=== PATIENT | male | born 1945 | race Caucasian/White ===

== ENCOUNTER 2018-06-25 11:30 | Outpatient (RCR) | payer OTHER, SELFPAY ==
--- NOTE | 2018-03-27 14:08 | HP.PTEVAL_ITS ---
Patient's Visit Information ANDREEA AGUILERA is a 72 year old M referred to Physical Therapy by DASH ANTHONY with a diagnosis of R knee pain s/p TKA 03/20. Date of Evaluation: 03/27/18 Physical Therapist: Braxton Juarez DPT, OC - Visit Plan Frequency: 3x /Week Duration: 4-6 Weeks Plan: 3x/week for 3-6 weeks for: 1. patella mobs and sTM including incision when appropriately healed. 2. A/PROM R knee adn leg. 3. strength R LE. 4. Gait training and progression from walker. 5. General return to function. 6. ice as needed. - Subjective Subjective: One weeka go R TKA, Dr. Anthony. Had years of bone on bone pain. It is feeling pretty painful since in the anterior knee at 01/18. Worse with sitting too long with leg down. Climbing in to bed hurts bad.(lifting leg). Using wh walker to get around. Used cane prior to surgery outside of house. Has steps up to bedroom with rail but sleeping downstairs. Sleeping is OK, not often interrupted with pain. Bathroom is I. Dresses self except for socks. HEP daily basics. 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 Enjoys walking and mowing yard. Likes walking on farm, will not do that alone. Watches TV alot. Walking is main exercises. Enjoys being social when feeling good. - Pain R anterior knee. Pain Intensity (Out of 10): 8 Pain Intensity Range: 6, 10 - Objective Avoids R knee flexiona t swing, walks with wh walker mod I. 40 feet. Trasnfers I with UE, R leg out in front. Needs assist with R LE lift to transfer inand out of bed, VC for lifting with other leg. Slow movement and needs VC to stand with R knee in near full ext, stands at walker I, without walker I. needs VC to heel strike and toe off on R adn to keep walker moving. Redness present middle of incision minimally today, Covering removed at patients request and incision is dry and stero strips in place. Small proximal overlapping of skin but otherwise looks good. Patella on R is moderate deficits of motion in all directions. Swelling is moderate as expected this date. Patient has book and is able to show all exercises today but cannot lift leg or LAQ and was not doing QS. Hard for him to move R knee without using UE. Hip strength R flexion 3 abd 3, and ext 3-. Knee flexion 3+ and ext 3-, ankle strength 4+/5. HS adn gastroc max tight B with -45 90/90 test and -5 degrees active DF R, to near neutral passsivley. - Goals Goal 1:: 0-110 AROM to improve function Goal Time Frame: 4-6 Weeks Goal 2:: Walk without AD safe and I with good gait pattern into andd out of PT Goal Time Frame: 4-6 Weeks Goal 3:: Up and down steps reciprocally with one rail Goal Time Frame: 4-6 Weeks Goal 4:: Sleep without waking due to pain. Goal Time Frame: 4-6 Weeks Goal 5:: Ready to resume some outdoor farm walking Goal Time Frame: 4-6 Weeks - Rehabilitation Potential Physical Therapy Diagnosis: S/P R TKA,s tiffness and poor mobility. Rehabilitation Potential: Fair - Anticipated Interventions Patient/Client Instruction: Educate patient on: Condition, Plan of Care For the Purpose of:: To decrease pain, To improve muscle performance and motor function Therapeutic Exercise to Include: Strength training, Flexibilty training, Gait and locomotor training, Passive ROM, Active ROM For the Purpose of:: To decrease pain, To increase ROM, To improve nutrient delivery to tissue, To improve muscle performance and motor function, To increase tolerance to activity/condition/position, To improve ability of physical actions for home/community/work/leisure Manual Therapy Techniques to Include: Scar massage, Soft tissue mobilization For the Purpose of:: To decrease pain, To increase ROM, To improve nutrient delivery to tissue Cryotherapy (ice pack, ice massage): Yes For the Purpose of:: To decrease pain, To decrease swelling/inflammation Thank you for the opportunity to evaluate your patient. For Medicare and Medicare HMO plans, please review the plan of care and approve it. It will need to be FAXED BACK to us at [phone] for Medicare purposes. Please let me know if there are questions or concerns regarding this plan of care. Physician Signature: Date:
--- NOTE | 2018-04-17 11:53 | HP.PTREVAL_ITS ---
DASH ANTHONY, It has been my pleasure to treat ANDREEA AGUILERA over the last 10 visits for R knee pain s/p TKA 03/20/18. Please see the progress note below for an update on the physical therapy plan of care! Subjective: Getting around good. Pain is intermittent at -07/21. HEP at home going well. Sleeping well. Only activity avoiding is walking as driveway is gravel. Knee doesn't keep him from cooking or housework. To doctor on the 04/29. Using cane outside and nothing in the house. Steps going OK but doesn't go up them yet to sleep as bathroom is downstairs and doesn't feel like climbing them at night. Objective/Function: -3 to 106 AROM R knee. Walks well adn steps with one rail and slightly weak on R. steristrips in place but dry and healed well. Cane used for confidence. Plan Plan: Continue 3x/week for x 3-4 for. rollout upper leg muscles and stertch and work on ROM flexion and ext. also teach LE strength at counter for winter. Work on steps. Goals Goal 1:: 0-110 AROM to improve function Goal Time Frame: 4-6 Weeks Goal Progress: Progressing Goal 2:: Walk without AD safe and I with good gait pattern into andd out of PT Goal Time Frame: 4-6 Weeks Goal Progress: Goal Met Goal 3:: Up and down steps reciprocally with one rail Goal Time Frame: 4-6 Weeks Goal Progress: Progressing Goal 4:: Sleep without waking due to pain. Goal Time Frame: 4-6 Weeks Goal Progress: Goal Met Goal 5:: Ready to resume some outdoor farm walking Goal Time Frame: 4-6 Weeks Goal Progress: Progressing Anticipated Interventions Patient/Client Instruction: Educate patient on: Condition, Plan of Care For the Purpose of:: To decrease pain, To improve muscle performance and motor function Therapeutic Exercise to Include: Strength training, Flexibilty training, Gait and locomotor training, Passive ROM, Active ROM For the Purpose of:: To decrease pain, To increase ROM, To improve nutrient delivery to tissue, To improve muscle performance and motor function, To increas e tolerance to activity/condition/position, To improve ability of physical actions for home/community/work/leisure Manual Therapy Techniques to Include: Scar massage, Soft tissue mobilization For the Purpose of:: To decrease pain, To increase ROM, To improve nutrient delivery to tissue Cryotherapy (ice pack, ice massage): Yes For the Purpose of:: To decrease pain, To decrease swelling/inflammation Please do not hesitate to contact me at [phone] by phone or if you have questions or concerns regarding this new plan of care! Sincerely, Braxton Juarez, DPT, OC
--- NOTE | 2018-05-10 13:51 | HP.PTREVAL ---
DASH ANTHONY, It has been my pleasure to treat ANDREEA AGUILERA over the last 19 visits for R knee pain s/p TKA 03/20/18. Please see the progress note below for an update on the physical therapy plan of care! Subjective: Better , Getting around well, no cane unless outside. Sore R knee.08/18 , some days no pain. Ready to be done and may join as a member. Objective/Function: -1 to 111 aROM and to 117 PROM flexion, Patella movement improved. Steps reciprocal without rail but smoother with rail. walks well and even jogs a few steps today. Pt doing well and ready to be done but lacks the knowledge to continue a gym based program which he is willing to do for the winter(neglected to mention this prior). Recommend 3 visits to teach gym based ex for I for LE strength and posture and calorie burn. Plan Plan: 3-4 visits of teaching gym based ex for LE adn UE adn postural strength adn bike/TM and progress to I after 4 visits as member(pt willing to join) Goals Goal 1:: 0-110 AROM to improve function Goal Time Frame: 4-6 Weeks Goal Progress: Goal Met Goal 2:: Walk without AD safe and I with good gait pattern into andd out of PT Goal Time Frame: 4-6 Weeks Goal Progress: Goal Met Goal 3:: Up and down steps reciprocally with one rail Goal Time Frame: 4-6 Weeks Goal Progress: Goal Met Goal 4:: Sleep without waking due to pain. Goal Time Frame: 4-6 Weeks Goal Progress: Goal Met Goal 5:: Ready to resume some outdoor farm walking Goal Time Frame: 4-6 Weeks Goal Progress: Goal Met Goal 6:: I approp gym based strength to keep healthy for winter Goal Time Frame: 2 Weeks Goal Progress: NEW GOAL Anticipated Interventions Patient/Client Instruction: Educate patient on: Condition, Plan of Care For the Purpose of:: To decrease pain, To improve muscle performance and motor function Therapeutic Exercise to Include: Strength training, Flexibilty training, Gait and locomotor training, Passive ROM, Active ROM For the Purpose of:: To decrease pain, To increase ROM, To improve nutrient delivery to tissue, To improve muscle performance and motor function, To increase tolerance to activity/condition/position, To improve ability of physical actions for home/community/work/leisure Manual Therapy Techniques to Include: Scar massage, Soft tissue mobilization For the Purpose of:: To decrease pain, To increase ROM, To improve nutrient delivery to tissue Cryotherapy (ice pack, ice massage): Yes For the Purpose of:: To decrease pain, To decrease swelling/inflammation Please do not hesitate to contact me at [phone] by phone or if you have questions or concerns regarding this new plan of care! Sincerely, Braxton Juarez, STUARTT, OC
--- NOTE | 2018-06-25 12:42 | HP.PTDCSUM ---
HP - PT D/C Summary It has been my pleasure to treat ANDREEA AGUILERA under orders from MARY ARNOLD, for the diagnosis of R knee pain s/p TKA 03/20/18 for a total of 23 visit(s). Discharge Date: 06/25/18 Please see the following information for a summary of their discharge status. - Subjective Subjective: Did well out in gym. Pain is not an issue with knee. Wants to do ex I 3x/week. Sleep is good. Will see doctor in March. - Pain R anterior knee. Pain Intensity (Out of 10): 0 bilat LB Pain Intensity (Out of 10): 0 - Overall Improvement % Improvement: 90 - Objective Objective/Function: 0-115 AROM, walks well adn without AD. Walks well, flat L foot but safe adn I on frim flat surface. steps ascending reciprocal without rail but needs it to descend for balance. - Goals Goal 1:: 0-110 AROM to improve function Goal Progress: Goal Met Goal 2:: Walk without AD safe and I with good gait pattern into andd out of PT Goal Progress: Goal Met Goal 3:: Up and down steps reciprocally with one rail Goal Progress: Goal Met Goal 4:: Sleep without waking due to pain. Goal Progress: Goal Met Goal 5:: Ready to resume some outdoor farm walking Goal Progress: Goal Met Goal 6:: I approp gym based strength to keep healthy for winter Goal Progress: Goal Met - Plan Plan: D/C - D/C Information Discharge Comments: Pt doing very wella nd will continue in gym as member I 3x/week. F/U with surgeon in March. If there are questions or concerns regarding this patient's physical therapy, please feel free to call me at [phone]. Thank you for the referral of this patient. Sincerely, Braxton Juarez, DPT, OCS, CSCS
== END 2018-06-25 19:00 | disposition home or self-care (01) ==
LOC: PT 11:30
DX: M25.561 Pain in right knee (principal)
CPT/HCPCS: 97110; 97116; 97140; 97162; 97530; G8978; G8979

== ENCOUNTER 2023-11-03 17:29 | Emergency (ER) | payer OTHER, SELFPAY ==
[2023-11-03 17:30] VITALS: BP 124/61; PULSE 81; RESP 26; TEMP 36; O2SAT 98
[2023-11-03 18:10] VITALS: BMI 30.7
[2023-11-03] MEDS: 0.9% Normal Saline (1000mL) 1,000 ML 1000 ML IV (18:20)
[2023-11-03] MEDS: Ondansetron 4 MG/2 ML Vial IV (18:22)
[2023-11-03] MEDS: Morphine 4 MG/ML Syringe IV (18:22)
[2023-11-03 18:23] LABS: Absolute Lymphocyte Count 0.82 X10^3/uL (0.83-4.51); Absolute Neutrophil Count 5.7 X10^3/uL (2.0-7.7); Basophil# 0.02 X10^3/uL; Basophil% 0.3 % (0-1); Eosinophil# 0.07 X10^3/uL; Hematocrit 44.2 % (40-54); Hemoglobin 15.2 g/dL (13.0-16.5); Lymphocyte # 0.82 X10^3/ul (0.83-4.51); Lymphocyte % 11.8 % (19-41); Mean Corp Hgb Conc 34.4 g/dL (32-36); Mean Corpuscular Hgb 29.5 pg (27.0-32.0); Mean Corpuscular Volume 85.8 fL (80-94); Monocyte# 0.38 X10^3/uL; Monocyte% 5.5 % (0-10); NRBC Flagged by Analyzer 0 % (0-5); Neutrophil # 5.66 X10^3/uL (2.7-7.7); Neutrophil % 81.1 % (47-70); Platelet Count 236 K/mm3 (150-450); RBC Distribution Width CV 13.2 % (11.6-14.6); RBC Distribution Width SD 41.6 fl (35.1-43.9); Red Blood Count 5.15 M/mm3 (4.6-6.2)
[2023-11-03 18:32] VITALS: BP 140/80; PULSE 71; RESP 20; TEMP 36.5; O2SAT 98
[2023-11-03 18:41] LABS: AST(SGOT) 208 U/L (15-37); Alanine Aminotransfer ALT/SGPT 172 U/L (16-61); Alkaline Phosphatase 130 U/L (45-117); Anion Gap 12 (5-15); BUN 22 mg/dL (7-18); BUN/Creat Ratio 17.1 RATIO (10-20); Bilirubin, Direct 0.72 mg/dL (0.00-0.30); Calcium,Total 9.7 mg/dL (8.5-10.1); Chloride 103 mmol/L (98-107); Creatinine, Serum 1.29 mg/dL (0.70-1.30); EST Glomerular Filtration Rate 57 mL/min (>60); Est Glom Filt Rate - Afr Amer 69 mL/min (>60); Globulin 3.7 g/dL (2.2-4.2); Glucose 203 mg/dL (74-106); Potassium 3.8 mmol/L (3.5-5.1); Protein, Total 7.7 g/dL (6.4-8.2); Sodium Level 137 mmol/L (136-145)
[2023-11-03 18:47] LABS: Bacteria 0 SEEN /hpf (None Seen); Mucous, Urine 0 SEEN /hpf (<or=2+); Red Blood Cells-Urine 0 SEEN /hpf (0-5); Squamous Epithelial Cells - UA 0 SEEN /hpf (0-5)
[2023-11-03 18:48] LABS: Color, Urine Yellow (Yellow); Glucose, Dipstick 50 mg/dl (Normal); Leukocyte Esterase-Dipstick 25 /ul (Negative); Nitrite-Dipstick Negative (Negative); Occult Blood-Urine Negative /ul (Negative); Protein-Dipstick 30 mg/dl (Negative); Specific Gravity, Urine 1.015 (1.002-1.030); Urine Bilirubin Dipstick Negative (Negative); Urine Clarity Clear (Clear); Urine Urobilinogen 4 mg/dl (Normal)
[2023-11-03 18:49] LABS: Ketone-Dipstick 150 mg/dl (Negative)
[2023-11-03 18:54] LABS: White Blood Cells 0-5 SEEN /hpf (0-5)
[2023-11-03 19:00] VITALS: BP 131/79; PULSE 76; RESP 18; O2SAT 92
--- NOTE | 2023-11-03 19:40 | CT_ITS ---
EXAM: CT ABDOMEN AND PELVIS WITH INTRAVENOUS CONTRAST CLINICAL INDICATION: suprapubic pain TECHNIQUE: Helically acquired images were obtained of the abdomen and pelvis with intravenous contrast. This CT exam was performed using one or more of the following dose reduction techniques: automated exposure control, adjustment of the mA and/or kV according to patient size, and/or use of iterative reconstruction technique. CONTRAST: IV 75mL Isovue-370 COMPARISON: No relevant prior studies available. FINDINGS: LOWER THORAX: There are moderate coronary artery calcifications present. There is scarring within the lung bases. No cardiomegaly. No significant pericardial effusion. ABDOMEN: LIVER: Unremarkable. Homogeneous. No focal mass. GALLBLADDER AND BILE DUCTS: There are several gallstones present but no evidence of inflammation. No gallbladder distention or wall edema. No intra- or extrahepatic biliary ductal dilation. PANCREAS: Unremarkable. No focal cystic or solid mass. SPLEEN: Unremarkable. Normal size without focal cystic or solid mass. ADRENALS: Unremarkable. No nodules. KIDNEYS AND URETERS: There are low-density masses on right kidney compatible cysts. No follow-up imaging is necessary. The left kidney is not visualized and may be surgically absent. STOMACH AND BOWEL: Unremarkable. No stomach or bowel distention. No focal inflammatory change. PELVIS: APPENDIX: No evidence of acute appendicitis. BLADDER: Unremarkable. REPRODUCTIVE: Unremarkable as visualized. No mass. ABDOMEN and PELVIS: INTRAPERITONEAL SPACE: Unremarkable. No ascites or other fluid collection. No free air. BONES/JOINTS: Unremarkable. No suspicious lytic or blastic abnormality. SOFT TISSUES: Unremarkable. No discrete abdominal or pelvic wall hernia. VASCULATURE: See above. LYMPH NODES: Unremarkable. No enlarged lymph nodes. CT/Abdomen/Pelvis W IV Cont ONLY IMPRESSION: 1. Cholelithiasis with no evidence of cholecystitis. 2. Status post left nephrectomy. No acute abnormalities are identified. Electronically Signed: Randell Cartagena MD at 20:07 EDT ,
[2023-11-03 20:00] VITALS: BP 135/87; PULSE 96; RESP 19; O2SAT 91
[2023-11-03 20:48] VITALS: BP 168/92; PULSE 90; RESP 18; TEMP 36.8; O2SAT 93
--- NOTE | 2023-11-03 21:44 | EDS_ITS ---
HPI History of Present Illness Chief Complaint: Complaint Informant: patient, spouse/S.O. and family Narrative Narrative: 78-year-old male presenting to the emergency room with suprapubic pain. Patient states for the past several hours she has had a severe pain which she states feels like a bladder contraction. Patient states that last year he had Botox to his bladder to help with his nighttime urination. He sees the [facility] [place]. He takes tamsulosin. He denies any hematuria. No dysuria or fevers. Patient denies any change in bowel habits. No history of diverticulitis. Pain is nonradiating. 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 Home Medications ?Medication ?Instructions ?Recorded ?Last Taken ?Type tamsulosin 0.4 mg capsule 0.4 mg PO DAILY ##30 03/11/15 Unknown Rx amlodipine 10 mg tablet 10 mg PO DAILY 11/03/23 Unknown History amoxicillin 500 mg capsule 500 mg PO TID 11/03/23 Unknown History ascorbic acid (vitamin C) 500 mg mg PO 11/03/23 Unknown History capsule atorvastatin 40 mg tablet 40 mg PO DAILY 11/03/23 Unknown History cholecalciferol (vitamin D3) 25 25 mcg PO DAILY 11/03/23 Unknown History mcg (1,000 unit) capsule fluticasone propionate 50 1 inh inhalation BID 11/03/23 Unknown History mcg/actuation blister powder for inhalation levothyroxine 75 mcg capsule 75 mcg PO DAILY 11/03/23 Unknown History lisinopril 2.5 mg tablet 2.5 mg PO DAILY 11/03/23 Unknown History menthol 10 % topical cream applic topical 11/03/23 Unknown History (Biofreeze (menthol)) trospium 20 mg tablet 20 mg PO DAILY 11/03/23 Unknown History Allergy/AdvReac Type Severity Reaction Status Date / Time No Known Allergies Allergy Verified 11/03/23 17:32 Social History Smoking Status: Never smoker ROS ROS ED Constitutional Constitutional ED: Denies chills, fever(s) or weight loss Eyes Eyes: Denies change in vision or diplopia ENT ENT ED: Denies ear pain, rhinorrhea or sore throat Cardiovascular Cardiovascular: Denies chest pain, orthopnea, palpitations or racing heartbeat Respiratory/Chest Respiratory/Chest: Denies cough, dyspnea or orthopnea Gastrointestinal Gastrointestinal: Reports abdominal pain; Denies diarrhea, nausea or vomiting Genitourinary Genitourinary ED: Denies dysuria, hematuria or urinary frequency Musculoskeletal Musculoskeletal: Denies arthralgias or myalgias Integumentary Denies abscess or rash Neurologic Neurologic: Denies headache(s) or weakness Psychiatric Psychiatric: Denies anxiety, depression, suicidal ideation or suicidal thoughts Endocrine Endocrinology: Denies polydipsia, polyphagia or polyuria Allergic/Immunologic Allergic/Immunologic ED: Denies mouth swelling, tongue swelling or urticaria EXAM Physical Exam Const Vital Signs: 11/03/23 17:30 11/03/23 18:32 11/03/23 18:32 Temperature 96.8 F L 97.7 F L 97.7 F L Temperature Source Temporal Axillary Axillary Pulse Rate 81 71 71 Respiratory Rate 26 H 20 H 20 H Blood Pressure 124/61 H 140/80 H 140/80 H Blood Pressure Mean 82 100 100 Pulse Ox 98 98 98 Oxygen Delivery Method Room Air Room Air Room Air 11/03/23 19:00 11/03/23 20:00 11/03/23 20:48 Temperature 98.2 F Temperature Source Pulse Rate 76 96 90 Respiratory Rate 18 19 H 18 Blood Pressure 131/79 H 135/87 H 168/92 H Blood Pressure Mean 96 103 117 Pulse Ox 92 91 93 Oxygen Delivery Method Room Air Positive well nourished and well developed General Appearance ED: well developed HEENT Reports normocephalic, head/scalp atraumatic and moist mucous membranes Eyes PERRL and EOMs intact bilaterally Neck no lymphadenopathy, supple and no JVD Resp normal respiratory effort and clear to auscultation bilaterally Cardio regular rate, regular rhythm and no murmurs GI normal to inspection, nondistended, normoactive bowel sounds and non-tender Palpation: soft Back/Spine no CVA tenderness and normal ROM Extremity normal to inspection General Extremety ED: Negative for edema General Extremity: Negative for edema Neuro oriented x3 and CN's II-XII intact bilaterally Sensorium / Orientation: alert Motor Exam: strength 5/5 throughout Psych mental status grossly normal Mood & Affect: Negative for depressed or tearful Skin no rashes or lesions noted and no wounds MDM MDM MDM Narrative Medical decision making narrative: Differential diagnosis is very broad and includes but not limited to ureterolithiasis urinary retention UTI hemorrhagic cystitis diverticulitis colitis bladder spasms prostatitis Bladder scan did not show any distended bladder nor did physical exam. White count 7 hemoglobin 15.2. Creatinine 1.29 slight elevation of his liver enzymes and total bilirubin and direct bilirubin. He states that they do monitor his liver enzymes due to his immunotherapy. Urinalysis does not show any infection. CT of the abdomen pelvis was obtained this is consistent with cholelithiasis. However biliary disease would not explain his suprapubic pain. He has no current right upper quadrant or epigastric pain. No vomiting. I do not see any ureterolithiasis. He is status post left nephrectomy. Patient received morphine and Zofran as well as IV fluids. He has been able to urinate without any difficulty on his own. At this point I am not seeing an obvious cause for the patient's pain. He will be [facility] worsening or concerns History & Record Review Discussion w/independent historian: Patient and Family Lab Data Attestation: I reviewed the patient's lab results. Labs: Laboratory Results - last 24 hr 11/03/23 11/03/23 18:15 18:42 WBC 7.0 RBC 5.15 Hgb 15.2 Hct 44.2 MCV 85.8 MCH 29.5 MCHC 34.4 RDW Std Deviation 41.6 RDW Coeff of Hector 13.2 Plt Count 236 MPV 9.0 Immature Gran % (Auto) 0.300 Neut % (Auto) 81.1 H Lymph % (Auto) 11.8 L Tyler % (Auto) 5.5 Eos % (Auto) 1.0 Baso % (Auto) 0.3 Absolute Neuts (auto) 5.7 Absolute Lymphs (auto) 0.82 L Nucleated RBC % 0 Sodium 137 Potassium 3.8 Chloride 103 Carbon Dioxide 22.0 Anion Gap 12 BUN 22 H Creatinine 1.29 Estim Creat Clear Calc 58.50 Est GFR (MDRD) Af Amer 69 Est GFR (MDRD) Non-Af 57 L BUN/Creatinine Ratio 17.1 Glucose 203 H Calcium 9.7 Total Bilirubin 1.40 H Direct Bilirubin 0.72 H AST 208 H ALT 172 H Alkaline Phosphatase 130 H Total Protein 7.7 Albumin 4.0 Globulin 3.7 Urine Color Yellow Urine Clarity Clear Urine pH 8.0 Ur Specific [place] 1.015 Urine Protein 30 H Urine Glucose (UA) 50 H Urine Ketones 150 A* Urine Occult Blood Negative Urine Nitrite Negative Urine Bilirubin Negative Urine Urobilinogen 4 H Ur Leukocyte Esterase 25 H Urine RBC 0 SEEN Urine WBC 0-5 SEEN Ur Squamous Epith Cells 0 SEEN Urine Bacteria 0 SEEN Urine Mucus 0 SEEN Radiography Diagnostic Testing: Clinical Impression(s) from Imaging Studies Abdomen/Pelvis CT 11/03/23 19:40 IMPRESSION: 1. Cholelithiasis with no evidence of cholecystitis. 2. Status post left nephrectomy. No acute abnormalities are identified. Electronically Signed: Randell Cartagena MD at 20:07 EDT , Discharge Plan Triage Chief Complaint: Complaint ED Provider: Channing Caro Dx/Rx/DC Orders Clinical Impression: Abdominal pain, suprapubic Instructions: ED Abdominal Pain Unkn Cause Male... Prescriptions: No Action tamsulosin 0.4 MG capsule 0.4 mg PO DAILY Qty: 30 0RF lisinopril 2.5 mg tablet 2.5 mg PO DAILY amlodipine 10 mg tablet 10 mg PO DAILY levothyroxine 75 mcg capsule 75 mcg PO DAILY atorvastatin 40 mg tablet 40 mg PO DAILY ascorbic acid (vitamin C) 500 mg capsule PO cholecalciferol (vitamin D3) 25 mcg (1,000 unit) capsule 25 mcg PO DAILY trospium 20 mg tablet 20 mg PO DAILY Rx Instructions: administer on an empty stomach amoxicillin 500 mg capsule 500 mg PO TID Biofreeze (menthol) 10 % cream topical fluticasone propionate 50 mcg/actuation blister with device 1 inh inhalation BID [facility] [Primary Care Provider] - As Needed Print Language: Finnish Disposition Disposition: Home, Self Care Discharge Date/Time: 11/03/23 20:53
== END 2023-11-03 20:53 | disposition home or self-care (01) ==
PROVIDERS: Emergency Provider Emergency Medicine; Visit Provider Emergency Medicine
DX: R10.9 Unspecified abdominal pain (principal); I10 Essential (primary) hypertension; Z79.899 Other long term (current) drug therapy
CPT/HCPCS: 74177; 80048; 80076; 81001; 85025; 96361; 96374; 96375; 99284; J7030; P9612; Q9967; A4216; J2405

== ENCOUNTER 2025-02-04 08:54 | Emergency (ER) | payer OTHER, SELFPAY ==
[2025-02-04 08:55] VITALS: BP 154/95; PULSE 94; RESP 18; TEMP 36.2; O2SAT 96; BMI 30.1
--- NOTE | 2025-02-04 09:17 | EX.ED.DYSGE1 ---
HPI History of Present Illness Chief Complaint: Nosebleed Informant: patient Onset/Context/Timing Onset: Today and Hours (7) Context: Sudden Onset Timing: Intermittent Quality: Dark blood Location: Right nares Worsened by: Activity Relieved by: Nothing Narrative Narrative: Patient presents with epistaxis that began early this morning. Patient states that he woke up approximate 2 AM and noted some blood from his right nares. Patient states this stopped and he was able to go back to bed. Patient states he woke up this morning and started bleeding again. Patient states it seems to be worse when he gets up and moves around. Patient states it is mainly coming from the right nares. Patient describes it as dark. Patient admits to a recent cough. Patient also admits to mild sore throat. Patient denies any trauma or injury. Patient states that he had a recent dental extraction. Patient states that he stopped his anticoagulant prior to the dental extraction. Patient states he restarted it again last evening. Patient states he normally takes it in the evening with food. [facility] Medical History (Updated 02/04/25 @ 13:[address] Braxton Mendez, ) Hypothyroidism Pulmonary emboli HTN (hypertension) Kidney cancer, primary, with metastasis from kidney to other site Home Medications ?Medication ?Instructions ?Recorded ?Last Taken ?Type tamsulosin 0.4 mg capsule 0.4 mg PO DAILY ##30 03/11/15 Unknown Rx amlodipine 10 mg tablet 10 mg PO DAILY 11/03/23 Unknown History amoxicillin 500 mg capsule 500 mg PO TID 11/03/23 Unknown History ascorbic acid (vitamin C) 500 mg mg PO 11/03/23 Unknown History capsule atorvastatin 40 mg tablet 40 mg PO DAILY 11/03/23 Unknown History cholecalciferol (vitamin D3) 25 25 mcg PO DAILY 11/03/23 Unknown History mcg (1,000 unit) capsule fluticasone propionate 50 1 inh inhalation BID 11/03/23 Unknown History mcg/actuation blister powder for inhalation levothyroxine 75 mcg capsule 75 mcg PO DAILY 11/03/23 Unknown History lisinopril 2.5 mg tablet 2.5 mg PO DAILY 11/03/23 Unknown History menthol 10 % topical cream applic topical 11/03/23 Unknown History (Biofreeze (menthol)) trospium 20 mg tablet 20 mg PO DAILY 11/03/23 Unknown History Allergy/AdvReac Type Severity Reaction Status Date / Time latex Allergy Rash Verified 02/04/25 10:32 Surgical History (Updated 02/04/25 @ 09:[address] Braxton Mendez DO) History of nephrectomy Hx of cholecystectomy Social History Smoking Status: Never smoker ROS ROS ED Constitutional Constitutional ED: Denies chills or fever(s) Eyes Eyes: Denies blurry vision or change in vision ENT ENT ED: Reports sore throat; Denies rhinorrhea Cardiovascular Cardiovascular: Denies chest pain or palpitations Respiratory/Chest Respiratory/Chest: Reports cough; Denies dyspnea Gastrointestinal Gastrointestinal: Reports nausea; Denies vomiting Genitourinary Genitourinary ED: Denies dysuria or hematuria Musculoskeletal Musculoskeletal: Denies back pain or neck pain Integumentary Denies abscess or rash Neurologic Neurologic: Denies headache(s) or weakness Allergic/Immunologic Allergic/Immunologic ED: Denies mouth swelling or urticaria EXAM Physical Exam Const Vital Signs: 02/04/25 08:55 02/04/25 12:05 Temperature 97.1 F L Temperature Source Temporal Pulse Rate 94 70 Respiratory Rate 18 16 Blood Pressure 154/95 H 137/86 H Blood Pressure Mean 114 103 Pulse Ox 96 97 Oxygen Delivery Method Room Air Positive well nourished and well developed General Appearance ED: well developed and NAD HEENT Reports moist mucous membranes HEENT Narrative: There is dark blood noted in the right nares. It is clotted. The left nares is clear. Neck supple and no JVD Chest Wall inspection of chest normal and palpation of chest normal Resp normal respiratory effort and clear to auscultation bilaterally Cardio regular rate and regular rhythm GI non-tender and non-distended Palpation: soft Extremity normal to inspection General Extremety ED: Negative for edema or tenderness General Extremity: Negative for edema Neuro oriented x3, CN's II-XII intact bilaterally and no sensory deficits noted Sensorium / Orientation: alert Motor Exam: strength 5/5 throughout Psych mental status grossly normal MDM MDM MDM Narrative Medical decision making narrative: Cotton balls soaked with Diomedes mixture were placed in the right nares. There was a minimal amount of bleeding noted. After several placements with cotton balls, there is no further bleeding noted. Patient ambulated here in the emergency department. There is no further bleeding after ambulation. Bacitracin ointment was applied to the right nares. Patient was instructed to follow-up with his primary care physician in 5 to 7 days. Patient was instructed to return if worse in any way. Patient and family understand and are agreeable with the plan. All questions were answered. History & Record Review Additional record(s) reviewed:: Prior ED visit and Prior labs Discharge Plan Triage Chief Complaint: Nosebleed ED Provider: Braxton Mendez Dx/Rx/DC Orders Clinical Impression: Acute anterior epistaxis, Chronic anticoagulation Instructions: ED Epistaxis (Adult) Prescriptions: No Action tamsulosin 0.4 MG capsule 0.4 mg PO DAILY Qty: 30 0RF lisinopril 2.5 mg tablet 2.5 mg PO DAILY amlodipine 10 mg tablet 10 mg PO DAILY levothyroxine 75 mcg capsule 75 mcg PO DAILY atorvastatin 40 mg tablet 40 mg PO DAILY ascorbic acid (vitamin C) 500 mg capsule PO cholecalciferol (vitamin D3) 25 mcg (1,000 unit) capsule 25 mcg PO DAILY trospium 20 mg tablet 20 mg PO DAILY Rx Instructions: administer on an empty stomach amoxicillin 500 mg capsule 500 mg PO TID Biofreeze (menthol) 10 % cream topical fluticasone propionate 50 mcg/actuation blister with device 1 inh inhalation BID [facility]Primary [facility] Provider[facility] - 5-7 Days Print Language: Persian Disposition Disposition: Home, Self Care
[2025-02-04] MEDS: Mixture 30 ML Bottle TOPICAL (10:03)
[2025-02-04 12:05] VITALS: BP 137/86; PULSE 70; RESP 16; O2SAT 97
[2025-02-04 13:38] VITALS: BP 157/99; PULSE 74; RESP 16; TEMP 36.2; O2SAT 95
--- OUTSIDE RECORDS SUMMARY | 2025-02-04 18:45 | XMS RPT_ITS | CCD ---
Author Organization [facility] Care Team Providers Care Educational Technician Name Role Phone RAMOS NORTH Unavailable Unavailable [facility] Unavailable Unavailable GABRIELLERAMOS GONCALVES Unavailable Unavailable GABRIELLE, RAMOS Unavailable Unavailable [facility] Unavailable Unavailable GABRIELLE, RAMOS Unavailable Unavailable GABRIELLE, RAMOS Unavailable Unavailable GABRIELLE, RAMOS Unavailable Unavailable GABRIELLE, RAMOS Unavailable Unavailable GABRIELLE, RAMOS Unavailable Unavailable GABRIELLE, RAMOS Unavailable Unavailable GABRIELLE, RAMOS Unavailable Unavailable IMCA Unavailable Unavailable GABRIELLE, RAMOS Unavailable Unavailable [facility] Unavailable Unavailable [facility] Unavailable Unavailable GABRIELLE, RAMOS Attending Unavailable GABRIELLE, RAMOS Admitting Unavailable GABRIELLE, RAMOS Attending Unavailable GABRIELLE, RAMOS Referring Unavailable GABRIELLE, RAMOS Referring Unavailable GABRIELLE, RAMOS Referring Unavailable GABRIELLE, RAMOS Attending Unavailable GABRIELLE, RAMOS Referring Unavailable GABRIELLE, RAMOS Attending Unavailable GABRIELLE, RAMOS Referring Unavailable RAJ JANE Attending Unavailable RAJ JANE Primary Care Unavailable RAJ JANE Admitting Unavailable [place] Primary [place] Unavailable Channing Caro Attending Unavailable [place] Primary Care Provider UnavailDr. Braxton Cali DO Emergency Provider Allergies Allergy Classification Reported Allergen(s) Allergy Type Date of Onset Reaction(s) Facility (1 source) Latex Allergy to substance 02-04-2025 [facility] Medications Current Medications Medication Drug Class(es) Dates Sig (Normalized) Sig (Original) amLODIPine 10 mg oral tablet (1 source) Dihydropyridine Calcium Channel Karina Start: 11-03-2023 take 1 tablet by mouth once daily Amlodipine 10 mg tablet Active 10 mg PO DAILY November 03, 2023 12:00am amoxicillin 500 mg oral capsule (1 source) Penicillin-class Antibacterial Start: 11-03-2023 take 1 capsule by mouth three times daily Amoxicillin 500 mg capsule Active 500 mg PO THREE TIMES A DAY November 03, 2023 12:00am ascorbic acid 500 mg oral capsule (1 source) Vitamin C Start: 11-03-2023 Ascorbic Acid (Vitamin C) 500 mg capsule Active mg PO November 03, 2023 12:00am atorvastatin 40 mg oral tablet (1 source) HMG-CoA Reductase Inhibitor Start: 11-03-2023 take 1 tablet by mouth once daily Atorvastatin 40 mg tablet Active 40 mg PO DAILY November 03, 2023 12:00am cholecalciferol 0.025 mg oral capsule (1 source) Vitamin D Start: 11-03-2023 take 1 capsule by mouth once daily Cholecalciferol (Vitamin D3) 25 mcg (1,000 unit) capsule Active 25 ug PO DAILY November 03, 2023 12:00am Fluticasone Propionate 50 mcg/actuation blister with device (1 source) Start: 11-03-2023 Fluticasone Propionate 50 mcg/actuation blister with device Active 1 NMA INHALATION TWICE A DAY November 03, 2023 12:00am levothyroxine sodium 0.075 mg oral capsule (1 source) l-Thyroxine Start: 11-03-2023 take 1 capsule by mouth once daily Levothyroxine 75 mcg capsule Active 75 ug PO DAILY November 03, 2023 12:00am lisinopril 2.5 mg oral tablet (1 source) Angiotensin Converting Enzyme Inhibitor Start: 11-03-2023 take 1 tablet by mouth once daily Lisinopril 2.5 mg tablet Active 2.5 mg PO DAILY November 03, 2023 12:00am Menthol (1 source) Start: 11-03-2023 Menthol (Biofreeze (Menthol)) 10 % cream Active NMA TOPICAL November 03, 2023 12:00am tamsulosin hydrochloride 0.4 mg oral capsule (1 source) alpha-Adrenergic Karina Start: 03-11-2015 take 1 capsule by mouth once daily Tamsulosin 0.4 MG capsule Active 0.4 mg PO DAILY March 11, 2015 12:00am trospium chloride 20 mg oral tablet (1 source) Cholinergic Muscarinic Antagonist Start: 11-03-2023 take 1 tablet by mouth once daily Trospium 20 mg tablet Active 20 mg PO DAILY November 03, 2023 12:00am administer on an empty stomach Problems Active Problems Problem Classification Problem Date Documented Da te Episodic/Chronic Abdominal pain (2 sources) Unspecified abdominal pain; Translations: [Suprapubic pain] Onset: 11-09-2023 11-11-2023 Episodic Immunizations and screening for infectious disease (2 sources) Contact with and (suspected) exposure to other viral communicable diseases; Translations: [Contact with and (suspected) exposure to other viral communicable diseases] Onset: 06-14-2020 Episodic Osteoarthritis (1 source) Unilateral primary osteoarthritis, right knee; Translations: [Unilateral primary osteoarthritis, right knee] Onset: 02-01-2018 Chronic Other aftercare (1 source) Long-term current use of anticoagulant; Translations: [roasterman (current) use of anticoagulants] 02-04-2025 Episodic Other connective tissue disease (1 source) Presence of right artificial knee joint; Translations: [Presence of right artificial knee joint] Onset: 03-20-2018 Chronic Other upper respiratory disease (1 source) Anterior epistaxis; Translations: [Epistaxis] 02-04-2025 Episodic Thyroid disorders (1 source) Hypothyroidism; Translations: [Hypothyroidism, unspecified] 02-04-2025 Chronic Unclassified (1 source) Unknown / UNK(Unknown) Onset: 02-01-2018 Unclassified (1 source) FU right knee, s/p TKR 03/20/2018 Onset: 04-29-2018 Unclassified (1 source) COVID-19; Translations: [COVID-19] Onset: 06-14-2020 Past or Other Problems Problem Classification Problem Date Documented Da te Episodic/Chronic Unclassified (1 source) Unilateral primary osteoarthritis, right knee Onset: 02-01-2018 Results Test Name Value Interpretation Reference Range Facility Abdomen/Pelvis W IV Cont ONL Yon 11-03-2023 Abdomen/Pelvis W IV Cont ONLY [facility] Imaging Services [address], [place] [id number] Abdomen/Pelvis W IV Cont ONLY MR#: [id number] Acct: [id number] Name: ANDREEA AGUILERA Rep #: [id number] : 1945 78 From: Randell Cartagena MD PCP: [facility] Status: REG ER Study: Abdomen/Pelvis W IV Cont ONLY Date of Exam: Exam# [id number] Ordering Dr: Channing Caro DO :[id number] EXAM: CT ABDOMEN AND PELVIS WITH INTRAVENOUS CONTRAST CLINICAL INDICATION: suprapubic pain TECHNIQUE: Helically acquired images were obtained of the abdomen and pelvis with intravenous contrast. This CT exam was performed using one or more of the following dose reduction techniques: automated exposure control, adjustment of the mA and/or kV according to patient size, and/or use of iterative reconstruction technique. CONTRAST: IV 75mL Isovue-370 COMPARISON: No relevant prior studies available. FINDINGS: LOWER THORAX: There are moderate coronary artery calcifications present. There is scarring within the lung bases. No cardiomegaly. No significant pericardial effusion. ABDOMEN: LIVER: Unremarkable. Homogeneous. No focal mass. GALLBLADDER AND BILE DUCTS: There are several gallstones present but no evidence of inflammation. No gallbladder distention or wall edema. No intra- or extrahepatic biliary ductal dilation. PANCREAS: Unremarkable. No focal cystic or solid mass. SPLEEN: Unremarkable. Normal size without focal cystic or solid mass. ADRENALS: Unremarkable. No nodules. KIDNEYS AND URETERS: There are low-density masses on right kidney compatible cysts. No follow-up imaging is necessary. The left kidney is not visualized and may be surgically absent. STOMACH AND BOWEL: Unremarkable. No stomach or bowel distention. No focal inflammatory change. PELVIS: APPENDIX: No evidence of acute appendicitis. BLADDER: Unremarkable. REPRODUCTIVE: Unremarkable as visualized. No mass. ABDOMEN and PELVIS: INTRAPERITONEAL SPACE: Unremarkable. No ascites or other fluid collection. No free air. BONES/JOINTS: Unremarkable. No suspicious lytic or blastic abnormality. SOFT TISSUES: Unremarkable. No discrete abdominal or pelvic wall hernia. VASCULATURE: See above. LYMPH NODES: Unremarkable. No enlarged lymph nodes. CT/Abdomen/Pelvis W IV Cont ONLY IMPRESSION: 1. Cholelithiasis with no evidence of cholecystitis. 2. Status post left nephrectomy. No acute abnormalities are identified. Electronically Signed: Randell Cartagena MD at 20:07 EDT , CC: Dr. Channing Caro, DO; [facility] Metal Worker: Signed Normal [facility] Basic Metabolic Profile (BMP )on 11-03-2023 BUN/CRE 17.1 RATIO Normal 10-20 [facility] Comment on above: Performed By: #### L 500.3400, L500.2500, L100.0100 #### [facility] Laboratory [address] [place], [address] CA,Total 9.7 mg/dL Normal 8.5-10.1 [facility] Comment on above: Performed By: #### L 500.3400, L500.2500, L100.0100 #### [facility] [address] [place], [address] Chloride [Moles/Vol] 103 mmol/L Normal 98-107 [facility] Comment on above: Performed By: #### L 500.3400, L500.2500, L100.0100 #### [facility] [address] [place], [address] CO2 [Moles/Vol] 22.0 mmol/L Normal 21.0-32.0 [facility] Comment on above: Performed By: #### L 500.3400, L500.2500, L100.0100 #### [facility] [address] [place], [address] Creatinine [Mass/Vol] 1.29 mg/dL Normal 0.70-1.30 [facility] Comment on above: Result Comment: The validity of the calculated GFR GFRAA in patients over 70 years has not been determined. Clinical correlation is essential. Performed By: #### L 500.3400, L500.2500, L100.0100 #### [facility] [address] [place], [address] ECRCL 58.50 ml/min Normal [facility] Comment on above: Performed By: #### L 500.3400, L500.2500, L100.0100 #### [facility] [address] [place], [address] EST GFR - AA 69 mL/min Normal >60 [facility] Comment on above: Result Comment: Afri can English GFR Calc Performed By: #### L 500.3400, L500.2500, L100.0100 #### [facility] [address] [place], [address] GAP 12 Normal 5-15 [facility] Comment on above: Performed By: #### L 500.3400, L500.2500, L100.0100 #### [facility] [address] [place], [address] GFR/1.73 sq M.predicted among non-blacks MDRD (S/P/Bld) [Vol rate/Area] 57 mL/min/{1.73_m2} Low >60 [facility] Comment on above: Result Comment: Non- GFR Calc Performed By: #### L 500.3400, L500.2500, L100.0100 #### [facility] [address] [place], [address] Glucose [Mass/Vol] 203 mg/dL High 74-106 [facility] Comment on above: Result Comment: Gluc ose result greater than or equal to 200 mg/dL suggests DIABETES MELLITUS per A.D.A. criteria. Performed By: #### L 500.3400, L500.2500, L100.0100 #### [facility] [address] [place], [address] Potassium [Moles/Vol] 3.8 mmol/L Normal 3.5-5.1 [facility] Comment on above: Result Comment: Slig ht Hemolysis, Result may be falsely increased. Performed By: #### L 500.3400, L500.2500, L100.0100 #### [facility] [address] [place], [address] Sodium [Moles/Vol] 137 mmol/L Normal 136-145 [facility] Comment on above: Performed By: #### L 500.3400, L500.2500, L100.0100 #### [facility] [address] [place], [address] Urea nitrogen [Mass/Vol] 22 mg/dL High 7-18 [facility] Comment on above: Performed By: #### L 500.3400, L500.2500, L100.0100 #### [facility] [address] [place], [address] CBC W/Diff, Automatedon 05-2 5-2023 Absolute Lymph 0.82 X10 3/uL Low 0.83-4.51 [facility] Comment on above: Performed By: #### L 500.3400, L500.2500, L100.0100 #### [facility] [address] [place], [address] Absolute Neut 5.7 X10 3/uL Normal 2.0-7.7 [facility] Comment on above: Performed By: #### L 500.3400, L500.2500, L100.0100 #### [facility] [address] [place], [address] Basophils/100 WBC (Bld) 0.3 % Normal 0-1 [facility] Comment on above: Performed By: #### L 500.3400, L500.2500, L100.0100 #### [facility] [address] [place], [address] Eosinophils/100 WBC (Bld) 1.0 % Normal 0-5 [facility] Comment on above: Performed By: #### L 500.3400, L500.2500, L100.0100 #### [facility] [address] [place], [address] Erythrocyte distribution width (RBC) [Ratio] 13.2 % Normal 11.6-14.6 [facility] Comment on above: Performed By: #### L 500.3400, L500.2500, L100.0100 #### [facility] [address] [place], [address] Hematocrit (Bld) [Volume fraction] 44.2 % Normal 40-54 [facility] Comment on above: Performed By: #### L 500.3400, L500.2500, L100.0100 #### [facility] [address] [place], [address] Hemoglobin (Bld) [Mass/Vol] 15.2 g/dL Normal 13.0-16.5 [facility] Comment on above: Performed By: #### L 500.3400, L500.2500, L100.0100 #### [facility] [address] [place], [address] IG% 0.300 Normal 0.0-0.9 [facility] Comment on above: Result Comment: IG% - Immature Granulocytes (promyelocytes, myelocytes and metamyelocytes) > 1% indicates that a LEFT SHIFT is Present. Performed By: #### L 500.3400, L500.2500, L100.0100 #### [facility] [address] [place], [address] Lymphocytes/100 WBC (Bld) 11.8 % Low 19-41 [facility] Comment on above: Performed By: #### L 500.3400, L500.2500, L100.0100 #### [facility] [address] [place], [address] MCH (RBC) [Entitic mass] 29.5 pg Normal 27.0-32.0 [facility] Comment on above: Performed By: #### L 500.3400, L500.2500, L100.0100 #### [facility] [address] [place], [address] MCHC (RBC) [Mass/Vol] 34.4 g/dL Normal 32-36 [facility] Comment on above: Performed By: #### L 500.3400, L500.2500, L100.0100 #### [facility] [address] [place], [address] MCV (RBC) [Entitic vol] 85.8 fL Normal 80-94 [facility] Comment on above: Performed By: #### L 500.3400, L500.2500, L100.0100 #### [facility] [address] [place], [address] Monocytes/100 WBC (Bld) 5.5 % Normal 0-10 [facility] Comment on above: Performed By: #### L 500.3400, L500.2500, L100.0100 #### [facility] [address] [place], [address] Neutrophils/100 WBC (Bld) 81.1 % High 47-70 [facility] Comment on above: Performed By: #### L 500.3400, L500.2500, L100.0100 #### [facility] [address] [place], [address] Nucleated RBC (Bld) [#/Vol] 0 10*3/uL Normal 0-5 [facility] Comment on above: Performed By: #### L 500.3400, L500.2500, L100.0100 #### [facility] [address], [address] Platelet mean volume (Bld) [Entitic vol] 9.0 fL Normal 6.2-12.0 [facility] Comment on above: Performed By: #### L 500.3400, L500.2500, L100.0100 #### [facility] [address] [place], [address] Platelets (Bld) [#/Vol] 236 10*3/uL Normal 150-450 [facility] Comment on above: Performed By: #### L 500.3400, L500.2500, L100.0100 #### [facility] [address] [place], [address] RBC (Bld) [#/Vol] 5.15 10*6/uL Normal 4.6-6.[address] [facility] Comment on above: Performed By: #### L 500.3400, L500.2500, L100.0100 #### [facility] [address] [place], [address] RDW SD 41.6 fl Normal 35.1-43.9 [facility] Comment on above: Performed By: #### L 500.3400, L500.2500, L100.0100 #### [facility] [address] [place], [address] WBC (Bld) [#/Vol] 7.0 10*3/uL Normal 4.4-11.0 [facility] Comment on above: Performed By: #### L 500.3400, L500.2500, L100.0100 #### [facility] [address] [place], [address] Emergency Department Summary on 11-03-2023 Emergency Department Summary [facility] Medical Records Department [address] [place] [address] Emergency Department Summary 11/03/23 MR#: [id number] Acct: [id number] Name: ANDREEA AGUILERA Rep #: [id number] : 1945 78 From: Channing Caro DO PCP: [facility] Status:[facility] ER Location: ED HPI History of Present Illness Chief Complaint: Complaint Informant: patient, spouse/S.O. and family Narrative Narrative: 78-year-old male presenting to the emergency room with suprapubic pain. Patient states for the past several hours she has had a severe pain which she states feels like a bladder contraction. Patient states that last year he had Botox to his bladder to help with his nighttime urination. He sees the urology clinic at the [facility] in [place]. He takes tamsulosin. He denies any hematuria. No dysuria or fevers. Patient denies any change in bowel habits. No history of diverticulitis. Pain is nonradiating. 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 Home Medications ???Medication ???Instructions ???Recorded ???Last Taken ???Type tamsulosin 0.4 mg capsule 0.4 mg PO DAILY ##30 03/11/15 Unknown Rx amlodipine 10 mg tablet 10 mg PO DAILY 11/03/23 Unknown History amoxicillin 500 mg capsule 500 mg PO TID 11/03/23 Unknown History ascorbic acid (vitamin C) 500 mg mg PO 11/03/23 Unknown History capsule atorvastatin 40 mg tablet 40 mg PO DAILY 11/03/23 Unknown History cholecalciferol (vitamin D3) 25 25 mcg PO DAILY 11/03/23 Unknown History mcg (1,000 unit) capsule fluticasone propionate 50 1 inh inhalation BID 11/03/23 Unknown History mcg/actuation blister powder for inhalation levothyroxine 75 mcg capsule 75 mcg PO DAILY 11/03/23 Unknown History lisinopril 2.5 mg tablet 2.5 mg PO DAILY 11/03/23 Unknown History menthol 10 % topical cream applic topical 11/03/23 Unknown History (Biofreeze (menthol)) trospium 20 mg tablet 20 mg PO DAILY 11/03/23 Unknown History Allergy/AdvReac Type Severity Reaction Status Date / Time No Known Allergies Allergy Verified 11/03/23 17:32 Social History Smoking Status: Never smoker [facility] ED Constitutional Constitutional ED: Denies chills, fever(s) or weight loss Eyes Eyes: Denies change in vision or diplopia ENT ENT ED: Denies ear pain, rhinorrhea or sore throat Cardiovascular Cardiovascular: Denies chest pain, orthopnea, palpitations or racing heartbeat Respiratory/Chest Respiratory/Chest: Denies cough, dyspnea or orthopnea Gastrointestinal Gastrointestinal: Reports abdominal pain; Denies diarrhea, nausea or vomiting Genitourinary Genitourinary ED: Denies dysuria, hematuria or urinary frequency Musculoskeletal Musculoskeletal: Denies arthralgias or myalgias Integumentary Denies abscess or rash Neurologic Neurologic: Denies headache(s) or weakness Psychiatric Psychiatric: Denies anxiety, depression, suicidal ideation or suicidal thoughts Endocrine Endocrinology: Denies polydipsia, polyphagia or polyuria Allergic/Immunologic Allergic/Immunologic ED: Denies mouth swelling, tongue swelling or urticaria EXAM Physical Exam Const Vital Signs: 11/03/23 17:30 11/03/23 18:32 11/03/23 18:32 Temperature 96.8 F L 97.7 F L 97.7 F L Temperature Source Temporal Axillary Axillary Pulse Rate 81 71 71 Respiratory Rate 26 H 20 H 20 H Blood Pressure 124/61 H 140/80 H 140/80 H Blood Pressure Mean 82 100 100 Pulse Ox 98 98 98 Oxygen Delivery Method Room Air Room Air Room Air 11/03/23 19:00 11/03/23 20:00 11/03/23 20:48 Temperature 98.2 F Temperature Source Pulse Rate 76 96 90 Respiratory Rate 18 19 H 18 Blood Pressure 131/79 H 135/87 H 168/92 H Blood Pressure Mean 96 103 117 Pulse Ox 92 91 93 Oxygen Delivery Method Room Air Positive well nourished and well developed General Appearance ED: well developed HEENT Reports normocephalic, head/scalp atraumatic and moist mucous membranes Eyes PERRL and EOMs intact bilaterally Neck no lymphadenopathy, supple and no JVD Resp normal respiratory effort and clear to auscultation bilaterally Cardio regular rate, regular rhythm and no murmurs GI normal to inspection, nondistended, normoactive bowel sounds and non-tender Palpation: soft Back/Spine no CVA tenderness and normal ROM Extremity normal to inspection General Extremety ED: Negative for edema General Extremity: Negative for edema Neuro oriented x3 and CN's II-XII intact bilaterally Sensorium / Orientation: alert Motor Exam: strength 5/5 throughout Psych men (more content not included)... Normal [facility] Liver Profileon 11-03-2023 Albumin [Mass/Vol] 4.0 g/dL Normal 3.2-5.0 [facility] Comment on above: Performed By: #### L 500.3400, L500.2500, L100.0100 #### [facility] [address] [place], [address] ALK P 130 U/L High 45-117 [facility] Comment on above: Performed By: #### L 500.3400, L500.2500, L100.0100 #### [facility] [address] [place], [address] ALT [Catalytic activity/Vol] 172 U/L High 16-61 [facility] Comment on above: Performed By: #### L 500.3400, L500.2500, L100.0100 #### [facility] [address] [place], [address] AST [Catalytic activity/Vol] 208 U/L High 15-37 [facility] Comment on above: Result Comment: Slig ht Hemolysis, Result may be falsely increased. Performed By: #### L 500.3400, L500.2500, L100.0100 #### [facility] [address] [place], [address] Bilirubin [Mass/Vol] 1.40 mg/dL High 0.20-1.00 [facility] Comment on above: Result Comment: For patients on eltrombopag therapy, use of [employer] TBIL is not recommended. Performed By: #### L 500.3400, L500.2500, L100.0100 #### [facility] [address] [place], [address] Bilirubin.direct [Mass/Vol] 0.72 mg/dL High 0.00-0.30 [facility] Comment on above: Performed By: #### L 500.3400, L500.2500, L100.0100 #### [facility] [address] [place], [address] Globulin (S) [Mass/Vol] 3.7 g/dL Normal 2.2-4.2 [facility] Comment on above: Performed By: #### L 500.3400, L500.2500, L100.0100 #### [facility] [facility] [address] [place], [address] T PROT 7.7 g/dL Normal 6.4-8.2 [facility] Comment on above: Performed By: #### L 500.3400, L500.2500, L100.0100 #### [facility] [address] [place], [address] Urinalysis, Completeon 11-02 WBC 0-5 SEEN Normal 0-5 [facility] Comment on above: Order Comment: COLLE CTOR TO SPECIFY Performed By: #### L 400.0001 #### [facility] [address] [place], [address] BACTERIA 0 SEEN Normal None Seen [facility] Comment on above: Order Comment: COLLE CTOR TO SPECIFY Performed By: #### L 400.0001 #### [facility] [address] [place], [address] EPI,SQUAMOUS 0 SEEN Normal 0-5 [facility] Comment on above: Order Comment: COLLE CTOR TO SPECIFY Performed By: #### L 400.0001 #### [facility] [address] [place], [address] Mucus Ql (Urine sed) 0 SEEN Normal [facility] Comment on above: Order Comment: LAURA CTOR TO SPECIFY Performed By: #### L 400.0001 #### [facility] [address] [place], [address] RBC 0 SEEN Normal 0-5 [facility] Comment on above: Order Comment: LAURA CTOR TO SPECIFY Performed By: #### L 400.0001 #### [facility] [address] [place], [address] CORONAVIRUS PCR [CCL]on COVID 19 Result LINING CUTTER Positive Abnormal [facility] Comment on above: Result Comment: Posi tive for COVID19 (SARS CoV2) by PCR.(*) This test was developed and its performance characteristics determined by [facility]. This test has been authorized by FDA under an Emergency Use Authorization (EUA). This test has been validated in accordance with the FDA's Guidance Document Policy for Diagnostics Testing in Laboratories Certified to Perform High Complexity Testing under CLIA prior to Emergency use Authorization for Coronavirus Disease 2019 during the Public Health Emergency issued on August 09, 2019. [address] [place] [address] Benson Arreguin III, M.D. [id number] Performed By: #### [id number] #### [facility],[address] [place] [address] COVID 19 Source LINING CUTTER Nasopharyngeal Swab Normal [facility] Comment on above: Result Comment: Ronnie ected on 06/16 AT 0135: Previously reported as LINING CUTTER SWAB Performed By: #### [id number] #### [facility],[address] [place] [id number] Coronavirus 2019on 1 COVID 19 Result LINING CUTTER Abnormal Negative for COVID19 (SARS CoV2) by PCR. [facility] Comment on above: Result Comment: Posi tive for This test was developed and its performance characteristics determined by [facility]. This test has been authorized by FDA under an Emergency Use Authorization (EUA). This test has been validated in accordance with the FDA's Guidance Document Policy for Diagnostics Testing in Laboratories Certified to Perform High Complexity Testing under CLIA prior to Emergency use Authorization for Coronavirus Disease 2019 during the Public Health Emergency issued on August 09, 2019. COVID19 (SARS This test was developed and its performance characteristics determined by [facility]. This test has been authorized by FDA under an Emergency Use Authorization (EUA). This test has been validated in accordance with the FDA's Guidance Document Policy for Diagnostics Testing in Laboratories Certified to Perform High Complexity Testing under CLIA prior to Emergency use Authorization for Coronavirus Disease 2019 during the Public Health Emergency issued on August 09, 2019. CoV2) by This test was developed and its performance characteristics determined by [facility]. This test has been authorized by FDA under an Emergency Use Authorization (EUA). This test has been validated in accordance with the FDA's Guidance Document Policy for Diagnostics Testing in Laboratories Certified to Perform High Complexity Testing under CLIA prior to Emergency use Authorization for Coronavirus Disease 2019 during the Public Health Emergency issued on August 09, 2019. PCR.(*) This test was developed and its performance characteristics determined by [facility]. This test has been authorized by FDA under an Emergency Use Authorization (EUA). This test has been validated in accordance with the FDA's Guidance Document Policy for Diagnostics Testing in Laboratories Certified to Perform High Complexity Testing under CLIA prior to Emergency use Authorization for Coronavirus Disease 2019 during the Public Health Emergency issued on August 09, 2019. COVID 19 Source LINING CUTTER Normal [facility] Comment on above: Result Comment: Naso pharyngeal Corrected on 06/16 AT 0135: Previously reported as LINING CUTTER SWAB Swab Corrected on 06/16 AT 0135: Previously reported as LINING CUTTER SWAB OBSOLETEon 06-12-2018 OBSOLETE Refill (AGPOB1) ANDREEA AGUILERA ([id number]) 1945 M Date Time Provider Department 06/12/18 RAMOS NORTH AGB1 During your visit today, we recorded the following information about you: Abimael Huber 06/12/2018 1:50 PM Signed Dental work, NKA. Last ov 04/29/18, next ov 04/14/19, Sx > 90 days out. Abimael Huber June 12, 2018 1:49 PM Follow-up Patient Visit Andreea Aguilera is a 72 year old male who presents to follow up for No diagnosis found. Current or previous treatment regimens: physical therapy, occupational therapy and NSAIDS Medications:amlodipine besylate (AMLODIPINE ORAL), Take 10 mg by mouth once daily. Ascorbic Acid (VITAMIN C) 100 mg tablet, Take 100 mg by mouth once daily. atorvastatin (LIPITOR) 40 mg tablet, Take 40 mg by mouth once daily. enoxaparin (LOVENOX) 40 mg/0.4 mL syrg, Inject 0.4 mL subcutaneously twice daily. ergocalciferol, vitamin D2, (VITAMIN D2 ORAL), Take 1 tablet by mouth once daily. finasteride (PROSCAR) 5 mg tablet, Take 5 mg by mouth once daily. levothyroxine sodium (LEVOTHYROXINE ORAL), Take by mouth. lisinopril 2.5 mg tablet, Take 2.5 mg by mouth once daily. mirabegron (MYRBETRIQ) 25 mg Tb24, Take 25 mg by mouth once daily. tamsulosin ER (FLOMAX) 0.4 mg cap, Take 0.4 mg by mouth. trospium (SANCTURA) 20 mg tablet, Take 20 mg by mouth twice daily. warfarin (COUMADIN) 5 mg tablet, Take 5 mg by mouth daily as directed. 1.5 tues, thrus, sat No current facility-administered medications for this visit. Allergies: ALLERGIES No Known Allergies Physical Examination: There were no vitals taken for this visit. Normal gait Incision right knee well healed ROM 3-110 Moderate swelling noted NVI Images: no images today Houston Score: see report Assessment and Plan: For pain management purposes they may take OTC NSAIDs such as Advil or Aleve, and Tylenol if tolerated and if the patient knows of no allergies or contraindications. The risks and complications of these medications were discussed. The patient understands that if they are currently taking a NSAIDs or are prescribed one in the future they should not take Advil, Aleve, ibuprofen, naproxen or other OTC NSAIDs. ? They were also told that if any unusual symptoms develop, that the medication should be stopped immediately and that their primary care physician as well as our office should be notified. If they take this medication retirement, they understand the need for medication monitoring through their primary care physician. They are aware of the potential risks and side effects of this medication as well as the expected benefits, and wishes to proceed with its use. Antibiotic prophylaxis discussed FU in 1 year No Follow-up on file. Ramos North MD Allergies As of Date: 06/12/2018 (No Known Allergies) Date Reviewed: 04/29/2018 Reviewed by: Jeane BanerjeeEndless Mountains Health SystemsChica Stoddard - Fully Assessed Reason for Visit: Refill Request [94] Order(s):Amoxicillin 500 mg tabletTake 4 tabs PO before dental procedure.Disp: 12 tabletRfl: 2 Prescriptions as of 06/12/2018 Sig: AMLODIPINE ORAL Take 10 mg by mouth once nya* AMOXICILLIN 500 MG TABLET Take 4 tabs PO before dental * ASCORBIC ACID (VITAMIN C) 100* Take 100 mg by mouth once tha* ATORVASTATIN 40 MG TABLET Take 40 mg by mouth once nya* ENOXAPARIN 40 MG/0.4 ML SUBCU* Inject 0.4 mL subcutaneously * VITAMIN D2 ORAL Take 1 tablet by mouth once d* FINASTERIDE 5 MG TABLET Take 5 mg by mouth once daily. LEVOTHYROXINE ORAL Take by mouth. LISINOPRIL 2.5 MG TABLET Take 2.5 mg by mouth once tha* MIRABEGRON ER 25 MG TABLET,EX* Take 25 mg by mouth once nya* TAMSULOSIN 0.4 MG CAPSULE Take 0.4 mg by mouth. TROSPIUM 20 MG TABLET Take 20 mg by mouth twice tha* WARFARIN 5 MG TABLET Take 5 mg by mouth daily as d* Problem List As Of Date 06/12/2018 Noted Resolved Degenerative joint disease of knee, right [M17.*INVALID FOR*03/22/2018 More... Knee osteoarthritis [M17.10] INVALID FOR* Prescriptions ordered this encounter Disp Refills Start End AMOXICILLIN 500 MG TABLET 12 t* 2 06/12/2018 Sig: Take 4 tabs PO before dental procedure. Encounter Status:Closed by RAMOS NORTH MD on 06/12/18 [facility] DOMINGOOVon 04-29-2018 [facility] Office Visit (AGHWG1 ) ANDREEA AGUILERA ([id number]) 1945 M Date Time Provider Department 04/29/18 10:30 AM [facility] During your visit today, we recorded the following information about you: Jeane Stoddard WOOD TANK ERECTOR 04/29/2018 10:31 AM Signed REVIEW OF SYSTEMS: GENERAL: Well developed, well nourished. No acute distress PAIN: Pain right knee CARDIOVASCULAR: Negative for chest pain, leg swelling and palpations. MSK: joint pain right knee SKIN: Negative for lesions, rash, itching, metal sensitivity NEURO: Negative for seizure, trauma, numbness/tingling of extremities. ENDOCRINE: Negative for Diabetes Type 1 and Type 2 HEMATOLOGY: Negative for excessive bleeding, clots, bleeding disorders. Ramos North MD 04/29/2018 10:31 AM Signed Follow-up Patient Visit Andreea Aguilera is a 72 year old male who presents to follow up for Status post total right knee replacement (primary encounter diagnosis) Current or previous treatment regimens: physical therapy, occupational therapy and NSAIDS Medications: Current Outpatient Prescriptions: enoxaparin (LOVENOX) 40 mg/0.4 mL syrg Inject 0.4 mL subcutaneously twice daily. mirabegron (MYRBETRIQ) 25 mg Tb24 Take 25 mg by mouth once daily. amlodipine besylate (AMLODIPINE ORAL) Take 10 mg by mouth once daily. Ascorbic Acid (VITAMIN C) 100 mg tablet Take 100 mg by mouth once daily. ergocalciferol, vitamin D2, (VITAMIN D2 ORAL) Take 1 tablet by mouth once daily. warfarin (COUMADIN) 5 mg tablet Take 5 mg by mouth daily as directed. 1.5 tues, thrus, sat trospium (SANCTURA) 20 mg tablet Take 20 mg by mouth twice daily. atorvastatin (LIPITOR) 40 mg tablet Take 40 mg by mouth once daily. finasteride (PROSCAR) 5 mg tablet Take 5 mg by mouth once daily. lisinopril 2.5 mg tablet Take 2.5 mg by mouth once daily. tamsulosin ER (FLOMAX) 0.4 mg cap Take 0.4 mg by mouth. levothyroxine sodium (LEVOTHYROXINE ORAL) Take by mouth. No current facility-administered medications for this visit. Allergies: ALLERGIES No Known Allergies Physical Examination: There were no vitals taken for this visit. Normal gait Incision right knee well healed ROM 3-110 Moderate swelling noted NVI Images: no images today Houston Score: see report Assessment and Plan: 1. Status post total right knee replacement - ICD9: V43.65, ICD10: Z96.651 For pain management purposes they may take OTC NSAIDs such as Advil or Aleve, and Tylenol if tolerated and if the patient knows of no allergies or contraindications. The risks and complications of these medications were discussed. The patient understands that if they are currently taking a NSAIDs or are prescribed one in the future they should not take Advil, Aleve, ibuprofen, naproxen or other OTC NSAIDs. ? They were also told that if any unusual symptoms develop, that the medication should be stopped immediately and that their primary care physician as well as our office should be notified. If they take this medication roasterman, they understand the need for medication monitoring through their primary care physician. They are aware of the potential risks and side effects of this medication as well as the expected benefits, and wishes to proceed with its use. Antibiotic prophylaxis discussed FU in 1 year No Follow-up on file. Ramos North MD Referring Provider: RAMOS NORTH [[id number]] Allergies As of Date: 04/29/2018 (No Known Allergies) Date Reviewed: 04/29/2018 Reviewed by: Jeane ([facility]) Richi - Fully Assessed Reason for Visit: FU right knee, s/p TKR 03/20/2018 [Other] Primary Visit Diagnosis:Status post total right knee replacement [Z96.651] Prescriptions as of 04/29/2018 Sig: ENOXAPARIN 40 MG/0.4 ML SUBCU* Inject 0.4 mL subcutaneously * MIRABEGRON ER 25 MG TABLET,EX* Take 25 mg by mouth once nya* AMLODIPINE ORAL Take 10 mg by mouth once nya* ASCORBIC ACID (VITAMIN C) 100* Take 100 mg by mouth once tha* VITAMIN D2 ORAL Take 1 tablet by mouth once d* WARFARIN 5 MG TABLET Take 5 mg by mouth daily as d* TROSPIUM 20 MG TABLET Take 20 mg by mouth twice tha* ATORVASTATIN 40 MG TABLET Take 40 mg by mouth once nya* FINASTERIDE 5 MG TABLET Take 5 mg by mouth once daily. LISINOPRIL 2.5 MG TABLET Take 2.5 mg by mouth once tha* TAMSULOSIN 0.4 MG CAPSULE Take 0.4 mg by mouth. LEVOTHYROXINE ORAL Take by mouth. Problem List As Of Date 04/29/2018 Noted Resolved Degenerative joint disease of knee, right [M17.*INVALID FOR*03/22/2018 More... Knee osteoarthritis [M17.10] INVALID FOR* Encounter Status:Closed by RAMOS NORTH MD on 04/29/18 [facility] PROGRESSon 04-29-2018 Protein mass conc HNO ID: [id number] Author: Ramos North Service: (none) Author Type: Physician Type: Progress Notes Filed: 04/29/2018 10:31 AM Note Text: Follow-up Patient Visit Andreea Aguilera is a 72 year old male who presents to follow up for Status post total right knee replacement (primary encounter diagnosis) Current or previous treatment regimens: physical therapy, occupational therapy and NSAIDS Medications: Current Outpatient Prescriptions: enoxaparin (LOVENOX) 40 mg/0.4 mL syrg Inject 0.4 mL subcutaneously twice daily. mirabegron (MYRBETRIQ) 25 mg Tb24 Take 25 mg by mouth once daily. amlodipine besylate (AMLODIPINE ORAL) Take 10 mg by mouth once daily. Ascorbic Acid (VITAMIN C) 100 mg tablet Take 100 mg by mouth once daily. ergocalciferol, vitamin D2, (VITAMIN D2 ORAL) Take 1 tablet by mouth once daily. warfarin (COUMADIN) 5 mg tablet Take 5 mg by mouth daily as directed. 1.5 tues, thrus, sat trospium (SANCTURA) 20 mg tablet Take 20 mg by mouth twice daily. atorvastatin (LIPITOR) 40 mg tablet Take 40 mg by mouth once daily. finasteride (PROSCAR) 5 mg tablet Take 5 mg by mouth once daily. lisinopril 2.5 mg tablet Take 2.5 mg by mouth once daily. tamsulosin ER (FLOMAX) 0.4 mg cap Take 0.4 mg by mouth. levothyroxine sodium (LEVOTHYROXINE ORAL) Take by mouth. No current facility-administered medications for this visit. Allergies: ALLERGIES No Known Allergies Physical Examination: There were no vitals taken for this visit. Normal gait Incision right knee well healed ROM 3-110 Moderate swelling noted NVI Images: no images today Houston Score: see report Assessment and Plan: 1. Status post total right knee replacement - ICD9: V43.65, ICD10: Z96.651 For pain management purposes they may take OTC NSAIDs such as Advil or Aleve, and Tylenol if tolerated and if the patient knows of no allergies or contraindications. The risks and complications of these medications were discussed. The patient understands that if they are currently taking a NSAIDs or are prescribed one in the future they should not take Advil, Aleve, ibuprofen, naproxen or other OTC NSAIDs. ? They were also told that if any unusual symptoms develop, that the medication should be stopped immediately and that their primary care physician as well as our office should be notified. If they take this medication retirement, they understand the need for medication monitoring through their primary care physician. They are aware of the potential risks and side effects of this medication as well as the expected benefits, and wishes to proceed with its use. Antibiotic prophylaxis discussed FU in 1 year No Follow-up on file. Ramos North MD [facility] Protein mass conc HNO ID: [id number] Author: Jeane Stoddard Service: (none) Author Type: Hat And Cap Sewer Type: Progress Notes Filed: 04/29/2018 10:31 AM Note Text: REVIEW OF SYSTEMS: GENERAL: Well developed, well nourished. No acute distress PAIN: Pain right knee CARDIOVASCULAR: Negative for chest pain, leg swelling and palpations. MSK: joint pain right knee SKIN: Negative for lesions, rash, itching, metal sensitivity NEURO: Negative for seizure, trauma, numbness/tingling of extremities. ENDOCRINE: Negative for Diabetes Type 1 and Type 2 HEMATOLOGY: Negative for excessive bleeding, clots, bleeding disorders. [facility] CNOVon 04-01-2018 CN[facility] Office Visit (AGHWG1 ) ANDREEA AGUILERA ([id number]) 1945 M Date Time Provider Department 04/01/18 10:30 AM RAMOS NORTH AGHWG1 During your visit today, we recorded the following information about you: Respiration Weight Height 16/minute 95.3 kg 1.829 m Jeane Stoddard CMA 04/01/2018 11:07 AM Signed REVIEW OF SYSTEMS: GENERAL: Well developed, well nourished. No acute distress PAIN: Pain right knee CARDIOVASCULAR: Negative for chest pain, leg swelling and palpations. MSK: joint pain right knee SKIN: Negative for lesions, rash, itching, metal sensitivity NEURO: Negative for seizure, trauma, numbness/tingling of extremities. ENDOCRINE: Negative for Diabetes Type 1 and Type 2 HEMATOLOGY: Negative for excessive bleeding, clots, bleeding disorders. Ramos North MD 04/01/2018 11:07 AM Signed Follow-up Patient Visit Andreea Aguilera is a 72 year old male who presents to follow up for Status post total right knee replacement (primary encounter diagnosis) Current or previous treatment regimens: physical therapy, occupational therapy, NSAIDS and narcotic pain medication Medications: Current Outpatient Prescriptions: oxyCODONE IR (ROXICODONE) 5 mg immediate release tablet Take 1 tablet by mouth every 6 hours as needed for Pain for up to 7 days.Earliest Fill Date: 03/27/18 enoxaparin (LOVENOX) 40 mg/0.4 mL syrg Inject 0.4 mL subcutaneously twice daily. mirabegron (MYRBETRIQ) 25 mg Tb24 Take 25 mg by mouth once daily. amlodipine besylate (AMLODIPINE ORAL) Take 10 mg by mouth once daily. Ascorbic Acid (VITAMIN C) 100 mg tablet Take 100 mg by mouth once daily. ergocalciferol, vitamin D2, (VITAMIN D2 ORAL) Take 1 tablet by mouth once daily. warfarin (COUMADIN) 5 mg tablet Take 5 mg by mouth daily as directed. 1.5 tues, thrus, sat trospium (SANCTURA) 20 mg tablet Take 20 mg by mouth twice daily. atorvastatin (LIPITOR) 40 mg tablet Take 40 mg by mouth once daily. finasteride (PROSCAR) 5 mg tablet Take 5 mg by mouth once daily. lisinopril 2.5 mg tablet Take 2.5 mg by mouth once daily. tamsulosin ER (FLOMAX) 0.4 mg cap Take 0.4 mg by mouth. levothyroxine sodium (LEVOTHYROXINE ORAL) Take by mouth. No current facility-administered medications for this visit. Allergies: ALLERGIES No Known Allergies Physical Examination: Resp 16 Ht 6' 0 (1.83m) Wt 210 lb (95.3kg) BMI 28.47 kg/(m2). Ambulates with a walker Incision right knee with steri strips Moderate effusion with some erythema of resolving hemarthrosis ROM 0-90 Stable to varus and valgus stress Images: 3 views of the right knee taken today and reviewed by myself shows stable cemented right TKA in anatomic alignment Houston Score: see report Assessment and Plan: 1. Status post total right knee replacement - ICD9: V43.65, ICD10: Z96.651 Outpatient PT Stop Lovenox Ice and elevate Oxycodone Rx last week Wean off walker to cane FU in 4 weeks Handicap placard Rx No Follow-up on file. Ramos North MD Referring Provider: RAMOS NORTH [[id number]] Allergies As of Date: 04/01/2018 (No Known Allergies) Date Reviewed: 04/01/2018 Reviewed by: Jeane ([facility]) Richi - Fully Assessed Reason for Visit: FU right knee, post op 03/20/2018 [Other] Primary Visit Diagnosis:Status post total right knee replacement [Z96.651] Order(s):XR KNEE 3V FLEX/LAT/MERCH RT (AK) [[id number]] Order #: [id number] PARKING FOR HANDICAPPED [[id number]] Order #: [id number] Prescriptions as of 04/01/2018 Sig: OXYCODONE 5 MG TABLET Take 1 tablet by mouth every * ENOXAPARIN 40 MG/0.4 ML SUBCU* Inject 0.4 mL subcutaneously * MIRABEGRON ER 25 MG TABLET,EX* Take 25 mg by mouth once nya* AMLODIPINE ORAL Take 10 mg by mouth once nya* ASCORBIC ACID (VITAMIN C) 100* Take 100 mg by mouth once tha* VITAMIN D2 ORAL Take 1 tablet by mouth once d* WARFARIN 5 MG TABLET Take 5 mg by mouth daily as d* TROSPIUM 20 MG TABLET Take 20 mg by mouth twice tha* ATORVASTATIN 40 MG TABLET Take 40 mg by mouth once nya* FINASTERIDE 5 MG TABLET Take 5 mg by mouth once daily. LISINOPRIL 2.5 MG TABLET Take 2.5 mg by mouth once tha* TAMSULOSIN 0.4 MG CAPSULE Take 0.4 mg by mouth. LEVOTHYROXINE ORAL Take by mouth. Problem List As Of Date 04/01/2018 Noted Resolved Degenerative joint disease of knee, right [M17.*INVALID FOR*03/22/2018 More... Knee osteoarthritis [M17.10] INVALID FOR* Encounter Status:Closed by RAMOS NORTH MD on 04/01/18 [facility] PROGRESSon 04-01-2018 Protein mass conc HNO ID: [id number] Author: Ramos North Service: (none) Author Type: Physician Type: Progress Notes Filed: 04/01/2018 11:07 AM Note Text: Follow-up Patient Visit Andreea Aguilera is a 72 year old male who presents to follow up for Status post total right knee replacement (primary encounter diagnosis) Current or previous treatment regimens: physical therapy, occupational therapy, NSAIDS and narcotic pain medication Medications: Current Outpatient Prescriptions: oxyCODONE IR (ROXICODONE) 5 mg immediate release tablet Take 1 tablet by mouth every 6 hours as needed for Pain for up to 7 days.Earliest Fill Date: 03/27/18 enoxaparin (LOVENOX) 40 mg/0.4 mL syrg Inject 0.4 mL subcutaneously twice daily. mirabegron (MYRBETRIQ) 25 mg Tb24 Take 25 mg by mouth once daily. amlodipine besylate (AMLODIPINE ORAL) Take 10 mg by mouth once daily. Ascorbic Acid (VITAMIN C) 100 mg tablet Take 100 mg by mouth once daily. ergocalciferol, vitamin D2, (VITAMIN D2 ORAL) Take 1 tablet by mouth once daily. warfarin (COUMADIN) 5 mg tablet Take 5 mg by mouth daily as directed. 1.5 tues, thrus, sat trospium (SANCTURA) 20 mg tablet Take 20 mg by mouth twice daily. atorvastatin (LIPITOR) 40 mg tablet Take 40 mg by mouth once daily. finasteride (PROSCAR) 5 mg tablet Take 5 mg by mouth once daily. lisinopril 2.5 mg tablet Take 2.5 mg by mouth once daily. tamsulosin ER (FLOMAX) 0.4 mg cap Take 0.4 mg by mouth. levothyroxine sodium (LEVOTHYROXINE ORAL) Take by mouth. No current facility-administered medications for this visit. Allergies: ALLERGIES No Known Allergies Physical Examination: Resp 16 Ht 6' 0 (1.83m) Wt 210 lb (95.3kg) BMI 28.47 kg/(m2). Ambulates with a walker Incision right knee with steri strips Moderate effusion with some erythema of resolving hemarthrosis ROM 0-90 Stable to varus and valgus stress Images: 3 views of the right knee taken today and reviewed by myself shows stable cemented right TKA in anatomic alignment Houston Score: see report Assessment and Plan: 1. Status post total right knee replacement - ICD9: V43.65, ICD10: Z96.651 Outpatient PT Stop Lovenox Ice and elevate Oxycodone Rx last week Wean off walker to cane FU in 4 weeks Handicap placard Rx No Follow-up on file. Ramos North MD [facility] Protein mass conc HNO ID: [id number] Author: Jeane Stoddard Service: (none) Author Type: Hat And Cap Sewer Type: Progress Notes Filed: 04/01/2018 11:07 AM Note Text: REVIEW OF SYSTEMS: GENERAL: Well developed, well nourished. No acute distress PAIN: Pain right knee CARDIOVASCULAR: Negative for chest pain, leg swelling and palpations. MSK: joint pain right knee SKIN: Negative for lesions, rash, itching, metal sensitivity NEURO: Negative for seizure, trauma, numbness/tingling of extremities. ENDOCRINE: Negative for Diabetes Type 1 and Type 2 HEMATOLOGY: Negative for excessive bleeding, clots, bleeding disorders. [facility] Ramírez 03-27-2018 [facility] [place] Telephone ([id number]) ANDREEA AGUILERA ([id number]) 1945 M Date Time Provider Department 03/27/18 LOU MONREAL (CASSIDY) [id number] During your visit today, we recorded the following information about you: Lou Monreal RN 03/27/2018 11:50 AM Signed TOTAL JOINT COMPLETE CARE PROGRAM DISCHARGE FOLLOW-UP PHONE CALL Phone Call Date: 03/27/2018 Phone Call Time: 1144 Date of Surgery: 03/20/2018 Procedure: Right Total Knee Replacement FOLLOW-UP QUESTIONS: 1. Did you receive adequate written instructions upon discharge? Yes 2. Do you have your follow-up appointment schedule? YES 3. Is your pain controlled with current medication regimen? YES Current Pain level out of 10: 8 4. If you are able to see your incision, is there any increased drainage? NO 5. Any increased swelling? NO 6. Any increased redness? NO 7. If your dressing is still on, do you know when to remove it? Yes, Date: 03/27 8. Do you have any of the following new/worsening symptoms? None 9. Have you contacted your surgeon's office about these symptoms? N/A Joint Class Participation: Yes Education Completed: Yes Online or DVD Education Complete: n/a SIGNATURE: Lou Monreal RN PATIENT NAME: Andreea Aguilera DATE: March 27, 2018 TIME: 11:48 AM PAGER/CONTACT #: [phone] Patient doing ok at home, in home therapy never came out, he had auth number from [place] for them and company had accepted patient. Patient called them Sunday and yesterday and never got a call back, he is going to Outpatient PT today instead. Dressing is still on, he is removing it today, no redness/drainage/increased swelling noted. Pain is ok, feels like it could be better once dressing is off. He is not having any issues with nausea/constipation. He has no further questions or concerns at this time. Allergies As of Date: 03/27/2018 (No Known Allergies) Date Reviewed: 03/22/2018 Reviewed by: Sandy Neville) CASSIDY Juarez - Fully Assessed Reason for Visit: Post Op Call [[id number]] Prescriptions as of 03/27/2018 Sig: ENOXAPARIN 40 MG/0.4 ML SUBCU* Inject 0.4 mL subcutaneously * OXYCODONE 5 MG TABLET Take 1 tablet by mouth every * MIRABEGRON ER 25 MG TABLET,EX* Take 25 mg by mouth once nya* AMLODIPINE ORAL Take 10 mg by mouth once nya* ASCORBIC ACID (VITAMIN C) 100* Take 100 mg by mouth once tha* VITAMIN D2 ORAL Take 1 tablet by mouth once d* WARFARIN 5 MG TABLET Take 5 mg by mouth daily as d* TROSPIUM 20 MG TABLET Take 20 mg by mouth twice tha* ATORVASTATIN 40 MG TABLET Take 40 mg by mouth once nya* FINASTERIDE 5 MG TABLET Take 5 mg by mouth once daily. LISINOPRIL 2.5 MG TABLET Take 2.5 mg by mouth once tha* TAMSULOSIN 0.4 MG CAPSULE Take 0.4 mg by mouth. LEVOTHYROXINE ORAL Take by mouth. Problem List As Of Date 03/27/2018 Noted Resolved Degenerative joint disease of knee, right [M17.*INVALID FOR*03/22/2018 More... Knee osteoarthritis [M17.10] INVALID FOR* Encounter Status:Closed by LOU MONREAL RN on 03/27/18 [facility] OBSOLETEon 03-27-2018 OBSOLETE Refill ([id number]) ANDREEA AGUILERA ([id number]) 1945 M Date Time Provider Department 03/27/18 RAMOS NORTH During your visit today, we recorded the following information about you: Abimael Huber 03/27/2018 2:37 PM Signed Last refill 06/22/17, Sx 03/20/18 R TKA, next ov 04/01/18. Abimael Huber March 27, 2018 2:36 PM Patient ID: Andreea Aguilera is a 72 year old male. CC: Consultation requested by No primary care provider on file. for evaluation of: Patient presents with: Refill Request HPI: Andreea Aguilera is a 72 year old male who presents with a long history of activity-related Right knee pain. The patient denies specific injury or acute precipitating event. The pain is described as dull aching and sharp shooting pain and is present in thelateral regions of the knee. The patient does not require ambulatory aids. The patient does have difficulty ascending and descending stairs as well as getting out of a chair. The pain is to the point where it is adversely affecting activities of daily living. Previous treatment has consisted of injections, nsaids The patient is referred for orthopedic evaluation and management. Pain Assessment The following portions of the patient's history were reviewed and updated as appropriate: allergies, current medications, past family history, past medical history, past social history, past surgical history and problem list. PAST MEDICAL HISTORY Diagnosis Date - Arthritis - H/O renal cell carcinoma 1997 - Hyperlipemia - Hypertension - Pulmonary embolism (HCC) 1997, 2016 on coumadin - Thyroid disease PAST SURGICAL HISTORY Procedure Laterality Date - LAPAROSCOPIC NEPHRECTOMY Left 1997 - PAST SURGICAL HISTORY OF spot removed from left and right lung - PAST SURGICAL HISTORY OF hernia repair ROS FAMILY HISTORY Problem Relation Age of Onset - Cancer Father lung Social History Marital status: Spouse name: Years of education: Number of children: Social History Main Topics Smoking status: Never Smoker Smokeless tobacco: Never Used Alcohol use: No Drug use: No Current Outpatient Prescriptions: enoxaparin (LOVENOX) 40 mg/0.4 mL syrg Inject 0.4 mL subcutaneously twice daily. Disp: 15 Syringe Rfl: 0 oxyCODONE IR (ROXICODONE) 5 mg immediate release tablet Take 1 tablet by mouth every 6 hours as needed for Pain for up to 7 days. Disp: 28 tablet Rfl: 0 mirabegron (MYRBETRIQ) 25 mg Tb24 Take 25 mg by mouth once daily. Disp: Rfl: amlodipine besylate (AMLODIPINE ORAL) Take 10 mg by mouth once daily. Disp: Rfl: Ascorbic Acid (VITAMIN C) 100 mg tablet Take 100 mg by mouth once daily. Disp: Rfl: ergocalciferol, vitamin D2, (VITAMIN D2 ORAL) Take 1 tablet by mouth once daily. Disp: Rfl: warfarin (COUMADIN) 5 mg tablet Take 5 mg by mouth daily as directed. 1.5 tues, thrus, sat Disp: Rfl: trospium (SANCTURA) 20 mg tablet Take 20 mg by mouth twice daily. Disp: Rfl: atorvastatin (LIPITOR) 40 mg tablet Take 40 mg by mouth once daily. Disp: Rfl: finasteride (PROSCAR) 5 mg tablet Take 5 mg by mouth once daily. Disp: Rfl: lisinopril 2.5 mg tablet Take 2.5 mg by mouth once daily. Disp: Rfl: tamsulosin ER (FLOMAX) 0.4 mg cap Take 0.4 mg by mouth. Disp: Rfl: levothyroxine sodium (LEVOTHYROXINE ORAL) Take by mouth. Disp: Rfl: No current facility-administered medications for this visit. ALLERGIES No Known Allergies ACTIVE PROBLEM LIST Knee Osteoarthritis Objective: On physical examination, the patient is a well appearing male in no respiratory distress. The patient is awake, alert and oriented to person, place and time. There is no height or weight on file to calculate BMI. Examination of the patient?s gait finds it to be antalgic, steady, and well balanced. Inspection of the bilateral lower extremities does not demonstrate color, temperature or trophic changes. There is satisfactory alignment and no asymmetry. Examination of theRight knee finds mild intra-articular effusion. There is valgus deformity. The skin is noted to be intact. There is no lymphadenopathy. There is tenderness to palpation in the lateral portion of the knee Range of motion is 0-120 degrees. There is satisfactory varus/valgus stability. There is no midflexion instability. Leidy test is negative. There is no calf tenderness. There is no evidence of distal neurovascular compromise. Examination of the Left knee finds mild intra-articular effusion. There is no varus deformity. The skin is noted to be intact. There is no lymphadenopathy. There is no tenderness to palpation in the medial and lateral portion of the knee Range of motion is 0-120 degrees. There is satisfactory varus/valgus stability. There is no midflexion instability. Leidy test is negative. There is no calf tenderness. There is no evidence of distal neurovascular compromise. Examination of the bilateral hips exhibits physiologic range of motion without difficulty, equal leg lengths, no pain with resisted hip flexion and no tenderness to palpation over greater trochanters. Further examination of the bilateral lower extremities finds satisfactory ankle dorsiflexion and plantar flexion strength. Sensation is intact to light touch distally. Distal pulses are palpable. The feet are warm and viable and there is brisk capillary refill. [place] Knee Score: see report Radiographs: Radiographs are reviewed from office today to include right and left knee PA flexion, lateral and Merchant views. Per my interpretation, these show bilateral valgus with bone on bone DJD of the right knee latearl compartment Assessment: The encounter diagnosis was Status post total right knee replacement. Plan: The clinical and radiographic findings as well as a risks, benefits and alternatives of treatment have been reviewed in detail with the patient. The patient understands the diagnosis, treatment options both operative and non-operative, their associated risks, complications, benefits and failures and wishes to proceed with surgical intervention. The patient's ADL's have become more difficult including but not limited to decrease ability to ambulate.? The patient reports their quality of life has decreased.? The surgery the patient wishes to proceed with is a right TKA.? Prior to surgery it was recommended for the patient to be seen by their PCP for surgical optimization.? In addition they will obtain dental clearance if they have not seen their dentist in the previous 6 months. They understand that surgery cannot be guaranteed to relieve all the symptoms and there is a small but unlikely chance that the symptoms could be worse rather than better. They understands the risks as significant as can occur, including but no limited to the additional risks of loss of limb, infection, deep venous thrombosis, pulmonary embolism, failure of this procedure, wound healing problems, neurovascular injury, continued pain, weakened and muscle atrophy, reflex sympathetic dystrophy and scarring and stiffness. They understand, all questions were answered, and the patient has been provided an informed consent. It was recommended to the patient to do prehab physical therapy, attend our hospital sponsored joint camp, and to stop herbal supplements prior to surgery. Post hospital care and rehabilitation plan was discussed. Patient verbalized understanding and an educational materials were provided. He is going to stop his coumadin 5 days prior to surgery. The patient will return in after surgery to assess their response to the above treatment plan, sooner if there are questions or problems. Allergies As of Date: 03/27/2018 (No Known Allergies) Date Reviewed: 03/22/2018 Reviewed by: Sandy Neville) CASSIDY Juarez - Fully Assessed Reason for Visit: Refill Request [94] Visit Diagnosis:Status post total right knee replacement [Z96.651] Order(s):[] oxyCODONE IR (ROXICODONE) 5 mg immediate release tabletTake 1 tablet by mouth every 6 hours as needed for Pain for up to 7 days. Earliest Fill Date: 03/27/18Disp: 28 tabletRfl: 0 Prescriptions as of 03/27/2018 Sig: OXYCODONE 5 MG TABLET Take 1 tablet by mouth every * ENOXAPARIN 40 MG/0.4 ML SUBCU* Inject 0.4 mL subcutaneously * MIRABEGRON ER 25 MG TABLET,EX* Take 25 mg by mouth once nya* AMLODIPINE ORAL Take 10 mg by mouth once nya* ASCORBIC ACID (VITAMIN C) 100* Take 100 mg by mouth once tha* VITAMIN D2 ORAL Take 1 tablet by mouth once d* WARFARIN 5 MG TABLET Take 5 mg by mouth daily as d* TROSPIUM 20 MG TABLET Take 20 mg by mouth twice tha* ATORVASTATIN 40 MG TABLET Take 40 mg by mouth once nya* FINASTERIDE 5 MG TABLET Take 5 mg by mouth once daily. LISINOPRIL 2.5 MG TABLET Take 2.5 mg by mouth once tha* TAMSULOSIN 0.4 MG CAPSULE Take 0.4 mg by mouth. LEVOTHYROXINE ORAL Take by mouth. Problem List As Of Date 03/27/2018 Noted Resolved Degenerative joint disease of knee, right [M17.*INVALID FOR*03/22/2018 More... Knee osteoarthritis [M17.10] INVALID FOR* Prescriptions ordered this encounter Disp Refills Start End OXYCODONE 5 MG TABLET 28 t* 0 03/27/2018 04/03/2018 Class: Print RX Route: ORAL Sig: Take 1 tablet by mouth every 6 hours as needed for Pain for up to 7 days. Earliest Fill Date: 03/27/18 Medications Discontinued During This Encounter oxyCODONE IR (ROXICODONE) 5 mg immed* 28 t* 0 03/22/2018 03/27/2018 Class: Print RX Route: ORAL Sig: Take 1 tablet by mouth every 6 hours as needed for Pain for up to 7 days. Disc: Reason for discontinue is not on file. Encounter Status:Closed by LASHELL GONSALVES on 04/08/18 [facility] ALLIED HEALTH 03-22-2018 ALLIED HEALTH HNO ID: [id number] Author: Lou (Rn) Jocelin Service: Nursing Author Type: Registered Nurse Type: Allied Health Filed: 03/22/2018 8:52 AM Note Text: SPECIALTY EROSION CONTROL SPECIALIST NOTE SERVICE DATE: 03/22/2018 SERVICE TIME: 0840 Spoke to patient in room, he is up in chair, doing well. He is planning discharge home with [facility], has all DME needs at home. Outpatient PT is set up per patient at [facility] in [place], 04/03. Discharge education was provided, I will follow up with him at home next week. DISCHARGE PLAN: Home - with spouse DISCHARGE NEEDS: PT and Residential EDUCATION: Constipation, Pain, Signs and symptioms of infection and Swelling OUTPATIENT APPOINTMENTS: Scheduled with [facility] in [place], 04/03 SIGNATURE: Lou Monreal RN PATIENT NAME: Andreea Aguilera DATE: March 22, 2018 TIME: 8:51 AM PAGER/CONTACT #: [phone] Normal [facility] Basic Panelon 03-22-2018 Creatinine mass conc 1.08 mg/dL Normal 0.67-1.17 [place] Comment on above: Performed By: #### P 8 ####[facility] [place], [place] [address] Anion gap 3 molar conc 9 mmol/L Normal 8-16 [place] Comment on above: Performed By: #### P 8 ####[address] [address] Calcium mass conc 8.8 mg/dL Normal 8.5-10.1 [place] Comment on above: Performed By: #### P 8 ####[address] [address] CO2 molar conc 24 mmol/L Normal 21-32 [place] Comment on above: Performed By: #### P 8 ####[address] [address] Glucose mass conc 96 mg/dL Normal 70-99 [place] Comment on above: Performed By: #### P 8 ####[facility] [place], [place] [address] Urea nitrogen mass conc 19 mg/dL High 7-18 [place] Comment on above: Performed By: #### P 8 ####[address] [address] Chloride molar conc 105 mmol/L Normal 98-107 [place] Comment on above: Performed By: #### P 8 ####[address] [address] Potassium molar conc 4.3 mmol/L Normal 3.5-5.1 [place] Comment on above: Performed By: #### P 8 ####[address] [place] [address] Sodium molar conc 134 mmol/L Low 136-145 [place] Comment on above: Performed By: #### P 8 ####[address] [address] CASE MANAGEMon 03-22-2018 CASE MANAGEM HNO ID: [id number] Author: Anthony BanerjeeRn) CASSIDY Luther Service: Care Management Author Type: Registered Nurse Type: Care Mgt Progress Note Filed: 03/22/2018 1:52 PM Note Text: CARE MANAGEMENT PROGRESS NOTE SERVICE DATE: 03/22/2018 SERVICE TIME: 1350 LOS: 2 days [place] back from [facility], [facility] in [place] can accept pt, and they will get auth from [place] for home care visits. Family given name and number of agency, [employer], h+p, insurance info faxed to [facility] at [phone]. Phone is [phone]. SIGNATURE: Anthony Luther RN PATIENT NAME: Andreea Aguilera DATE: March 22, 2018 TIME: 1:50 PM PAGER/CONTACT #: [phone] [facility] CASE MANAGEM HNO ID: [id number] Author: Echo Hussein (Sw) Service: Care Management Author Type: Personal Assistant Type: Care Mgt Progress Note Filed: 03/22/2018 12:31 PM Note Text: CARE MANAGEMENT PROGRESS NOTE SERVICE DATE: 03/22/2018 SERVICE TIME: 1228 LOS: 2 days Social Work consulted for medication assistance due to patient getting RX through [place] Met with patient and family at bedside to discuss medication assistance. Pt reports that he already paid co-pay ($9.00) and has his prescription. No further concerns voiced from pt, to be sure SW did place a medication approval form on chart if needed. No further SW needs. SIGNATURE: MARIA DEL CARMEN Elder PATIENT NAME: Andreea Aguilera DATE: March 22, 2018 TIME: 12:28 PM PAGER/CONTACT #: [phone] [facility] CASE MANAGEM HNO ID: [id number] Author: Anthony Luther RN Service: Care Management Author Type: Registered Nurse Type: Care Mgt Progress Note Filed: 03/22/2018 11:53 AM Note Text: CARE MANAGEMENT PROGRESS NOTE SERVICE DATE: 03/22/2018 SERVICE TIME: 1149 LOS: 2 days Spoke with pt and family regarding not being able to find [facility] company, that we were still working on it. Family suggested trying [facility] since it was close. I did speak with SW there and she suggested I call [facility] [phone], who contracts with all the home health companies in that area. I did spoeak with someone there and she knows pt is in network for outpatient pt, will make some calls and get back to me about home PT. SIGNATURE: Anthony Luther RN PATIENT NAME: Andreea Aguilera DATE: March 22, 2018 TIME: 11:49 AM PAGER/CONTACT #: [phone] [facility] CASE MANAGEM HNO ID: [id number] Author: Anthony BanerjeeRnChica Luther RN Service: Care Management Author Type: Registered Nurse Type: Care Mgt Progress Note Filed: 03/22/2018 10:58 AM Note Text: CARE MANAGEMENT PROGRESS NOTE SERVICE DATE: 03/22/2018 SERVICE TIME: 1057 LOS: 2 days [place] [facility] who suggested I speak with someone at [place] [employer] [facility] [phone] since they were they insurance company. I left message with [employer] and await callback. SIGNATURE: Anthony Luther RN PATIENT NAME: Andreea Aguilera DATE: March 22, 2018 TIME: 10:57 AM PAGER/CONTACT #: [phone] [facility] CASE MANAGEM HNO ID: [id number] Author: Anthony BanerjeeRn) Ashkan RN Service: Care Management Author Type: Registered Nurse Type: Care Mgt Progress Note Filed: 03/22/2018 10:21 AM Note Text: CARE MANAGEMENT PROGRESS NOTE SERVICE DATE: 03/22/2018 SERVICE TIME: 1013 LOS: 2 days [facility] wendy Triple[facility] is not able to accept pt due out of service and they like to see their joints within 2 days and they would not be able to see pt until Sunday. Also tried [facility] and they are also out of service area. Will call [place] since [place] is pt primary insurance. SIGNATURE: Anhtony Luther RN PATIENT NAME: Andreea Aguilera DATE: March 22, 2018 TIME: 10:13 AM PAGER/CONTACT #: [phone] [facility] CNDSon 03-22-2018 [facility] HNO ID: [id number] Author: Alan Worthy Service: Orthopaedic Surgery Author Type: Resident Type: Discharge Summaries Filed: 03/27/2018 11:00 AM Note Text: Attestation signed by Ramos North at 03/27/2018 11:39 AM I saw and evaluated the patient. Discussed with the resident and agree with resident's findings and plan as documented in the resident's note. DISCHARGE SUMMARY PATIENT NAME: Andreea Aguilera Code Status: Not on file Highest Readmission Risk Score: 11 The 30 day readmissions risk score is derived from an internally validated risk model which evaluates patient level characteristics, utilization history, medication orders and lab results up until the day of discharge. Patients with a score of 40 or above are considered highest risk for readmission. Specific patient level drivers will be listed at the bottom of the summary. Admission Information Discharge Disposition Discharge Disposition: Home With Home Care Hospital Admission Information ADMIT DATE: 03/20/2018 DISCHARGE DATE: 03/22/2018 MY DOCTORS AND MEDICAL TEAM: My Main Hospital Doctor: Ramos North Primary Care Provider: Baljeet Mitchell CNP Other Medical Team Members: None MY CONDITION AT DISCHARGE: Stable REASON I WAS IN THE HOSPITAL: (Z96.651) Status post total right knee replacement (primary encounter diagnosis) Comment: Plan: SUMMARY OF WHAT HAPPENED WHILE I WAS IN THE HOSPITAL: Underwent TKA. Transferred to the PACU and then to the regular nursing floor for further care. Received post operative antibiotics, physical therapy, and DVT ppx. Considered stable for discharge and discharged home OTHER PROBLEMS/DIAGNOSIS: Principal Problem (Resolved): Degenerative joint disease of knee, right Active Problems: Knee osteoarthritis OPERATIONS PERFORMED WHILE IN THE HOSPITAL: TKA IMPORTANT TEST/PROCEDURES: No procedures performed TEST RESULTS NOT AVAILABLE AT THIS TIME: No pending results Activity When You Leave the Hospital May bathe and shower Rest for the remainder of the day after discharge from hospital Weight Bearing as Tolerated Diet Instructions Resume your pre-hospital diet For Pain When You Leave the Hospital Do not wait to take the pain medication until the pain is severe, as it will be difficult to catch up once this occurs Please call the doctor's office 48 hours prior to running out of pain medication if you feel you need a refill The pain medication usually reaches its full effect 1 hour after ingesting Wean off pain medication as tolerated You should start taking this the same day of your surgery You will be given a prescription for pain medication Wound/Surgical Site Care Do not rub the wound, but rather pat dry Do not submerge the wound in standing water for 6 weeks after surgery For any drainage reapply a new Mepilex dressing you were given and call the office If it remains drainage-free, you may leave the dressing off, keep the wound open to air It is normal for your wound to be warmer immediately after surgery (even up to 4-6 weeks after surgery) Keep wound and incision area clean and dry No baths, no hot tubs, no swimming pools for: For at least two weeks or seen in office Observe the wound for signs of infection (increased redness, swelling, or persistent drainage) You may remove aquacel dressing on POD #7-10 Call Your Doctor If There is an unusual odor from the wound area There is severe pain at the operative site You have redness, swelling, pus or drainage from the wound Additional Provider to Provider Information: No notes on file Principal Problem (Resolved): Degenerative joint disease of knee, right POA: Unknown Assessment AND Plan: Active Problems: Knee osteoarthritis POA: Yes Assessment AND Plan: Transitions of Care Critical Issues: LABS AND PROCEDURES PENDING AT DISCHARGE: FOLLOW-UP APPOINTMENTS ALREADY SCHEDULED WITH A [facility] PROVIDER: Future Appointments Date Time Provider Department Center 04/01/2018 10:30 AM [id number] ALLERGIES No Known Allergies DISCHARGE MEDICATION: Current Discharge Medication List START taking these medications enoxaparin (LOVENOX) 40 mg Inject 40 mg subcutaneously twice daily. Qty: 15 Syringe Refills: 0 oxyCODONE IR (ROXICODONE) 5 mg Take 5 mg by mouth every 6 hours as needed for Pain. Earliest Fill Date: 03/22/18 Qty: 28 tablet Refills: 0 Associated Diagnoses:Status post total right knee replacement CONTINUE these medications which have NOT CHANGED mirabegron (MYRBETRIQ) 25 mg Take 25 mg by mouth once daily. amlodipine besylate (AMLODIPINE ORAL) 10 mg Take 10 mg by mouth once daily. Ascorbic Acid 100 mg Take 100 mg by mouth once daily. ergocalciferol, vitamin D2, (VITAMIN D2 ORAL) 1 tablet Take 1 tablet by mouth once daily. warfarin (COUMADIN) 5 mg Take 5 mg by mouth daily as directed. 1.5 tues, thrus, sat trospium (SANCTURA) 20 mg Take 20 mg by mouth twice daily. atorvastatin (LIPITOR) 40 mg Take 40 mg by mouth once daily. finasteride (PROSCAR) 5 mg Take 5 mg by mouth once daily. lisinopril 2.5 mg Take 2.5 mg by mouth once daily. tamsulosin ER (FLOMAX) 0.4 mg Take 0.4 mg by mouth. levothyroxine sodium (LEVOTHYROXINE ORAL) Take by mouth. The patient's risk for 30-day readmission is determined using the following contributing factors: Pt variables contributing to increased readmission risk: 24 Active Medication Orders 12 Most Recent BUN Result 8.9 First Resulted Calcium During Admission 1 Discharge Disposition - Home 1 Active Anticoagulant SIGNATURE: Alan Worthy MD PAGER/CONTACT #: DATE: March 22, 2018 TIME: 6:10 AM Normal [facility] Hemogramon 03-22-2018 Erythrocyte distribution width Auto Ratio (RBC) 14.2 % Normal 11.6-14.4 [place] Comment on above: Performed By: #### P 8 ####[address] [address] Hematocrit Auto Volume Fraction (Bld) 41.2 % Normal 40.1-51.0 [place] Comment on above: Performed By: #### P 8 ####[facility] [place] [address] Hemoglobin mass conc (Bld) 13.6 g/dL Low 13.7-17.5 [place] Comment on above: Performed By: #### P 8 ####[place] [address] MCH Auto Entitic mass (RBC) 28.6 pg Normal 25.7-32.2 [place] Comment on above: Performed By: #### P 8 ####[place] [address] MCHC Auto mass conc (RBC) 33.0 % Normal 32.3-36.5 [place] Comment on above: Performed By: #### P 8 ####[place] [address] MCV Auto Entitic volume (RBC) 86.7 fL Normal 83.2-95.6 [place] Comment on above: Performed By: #### P 8 ####[place] [address] Platelet mean volume Auto Entitic volume (Bld) 9.3 fL Normal 8.7-12.0 [place] Comment on above: Performed By: #### P 8 ####[place] [address] Platelets Auto #/vol (Bld) 235 thou/cmm Normal 141-365 [place] Comment on above: Performed By: #### P 8 ####[place] [address] RBC Auto #/vol (Bld) 4.75 mil/cmm Normal 4.63-6.08 [place] Comment on above: Performed By: #### P 8 ####[place] [address] RDW SD 45.1 fl Normal 36.1-45.8 [place] Comment on above: Performed By: #### P 8 ####[place] [address] WBC Auto #/vol (Bld) 9.00 thou/cmm Normal 4.23-9.07 [place] Comment on above: Performed By: #### P 8 ####[facility] [place], [place] [address] MDRD GFRon 03-22-2018 GFR/1.73 sq M predicted among non-blacks MDRD vol rate/area (S/P/Bld) mL/min/{1.73_m2} Normal >60mL/min/1. 73m2 [place] Comment on above: Result Comment: If t he patient is , multiply the result by 1.210. Performed By: #### G FR ####[facility] [place], [place] [address] PLAN OF CAREon 03-22-2018 PLAN OF CARE HNO ID: [id number] Author: Luz Elena Quinn (Pharmacist) Service: Pharmacy Author Type: Pharmacist Type: Plan of Care Filed: 03/22/2018 11:53 AM Note Text: PHARMACY DISCHARGE MEDICATION COUNSELING PATIENT NAME: Andreea Aguilera DATE of SERVICE: 03/22/18 TIME of SERVICE: 1100 The patient accepted medication counseling for the discharge medications below. The patient was given the opportunity to ask questions regarding medication indication, interactions and side effects. Discharge Medications: Lovenox and Oxycodone Patient verbalizes understanding of counseling. Signature: LUZ ELENA QUINN, PHARMACIST Pager: [phone] Date: March 22, 2018 Time: 11:52 AM [facility] PLAN OF CARE HNO ID: [id number] Author: Zahira Villegas ([employer]) Service: (none) Author Type: (none) Type: Plan of Care Filed: 03/22/2018 10:30 AM Note Text: Pharmacy Discharge Medication Service: This patient has elected to receive their discharge prescriptions through the [facility] Bedside Prescription Delivery program. The prescriptions are currently being processed. A follow-up note will be entered once the prescriptions have been filled and delivered to the patient. Please contact me with any questions or updates to the patient's discharge medications. Zahira Villegas ([employer]) DCT Contact Info: extension [phone] or [phone] [facility] PLAN OF CARE HNO ID: [id number] Author: Zahira Villegas (Wireless Sales Consultant) Service: (none) Author Type: (none) Type: Plan of Care Filed: 03/22/2018 10:30 AM Note Text: [employer] BEDSIDE DELIVERY SURVEY 1. Patient to use [facility] Bedside Delivery - YES 2. If fax, patient would like us to fax prescriptions to Pharmacy of choice a. Pharmacy: b. Location: c. Phone: 3. Insurance card on file - YES 4. Credit card for payment - N/A Oxycodone 5 mg, pt only wanted #14 dispensed, he understood that he would not be able to get the remainder on the rx, copay is 6.06$ Contact Zahira at [phone] with questions prior to discharge Normal [facility] PROGRESSon 03-22-2018 Protein mass conc HNO ID: [id number] Author: Alan Worthy Service: Orthopaedic Surgery Author Type: Resident Type: Progress Notes Filed: 03/22/2018 6:07 AM Note Text: ORTHOPAEDIC SURGERY DAILY PROGRESS NOTE ASSESMENT: 72 year old male POD2 R TKA PLAN: -Pain control -PT/OT WBAT -DVT ppx: Lovenox 40 BID bridge, coumadin 5 mg daily -Aquacel for 7 days -D/c planning: home today INTERVAL HPI: Patient monitored, no new events overnight. Patient states that they are comfortable. Well Controlled pain. OBJECTIVE: BP 126/72 Pulse 63 Temp 36.7 ?C (98.1 ?F) (Temporal Artery) Resp 18 Ht 180.3 cm (5' 10.98) Wt 95.3 kg (210 lb 1.6 oz) SpO2 96% BMI 29.32 kg/m? Intake/Output Summary (Last 24 hours) No intake/output data recorded. Exam: General: NAD Extremities: Right Lower Extremity: Dorsalis pedis pulses palpable. Posterior tibial pulses palpable. Dorsi flexion 5/5. Plantar flexion 5/5. Extensor hallucis extension: 5/5. Sensory intact to light touch DP/SP/Gusman/Sa/Tib. Dressing clean, dry and intact. Surgical site no drainage. Labs: CBC: HGB (g/dL) Date Value 03/21/2018 13.6 Hematocrit (%) Date Value 03/21/2018 40.3 WBC (thou/cmm) Date Value 03/21/2018 8.58 Platelet Count (thou/cmm) Date Value 03/21/2018 260 BMP: Glucose (mg/dL) Date Value 03/21/2018 103 Potassium (mEq/L) Date Value 03/21/2018 4.2 Sodium (mEq/L) Date Value 03/21/2018 134 Chloride (mEq/L) Date Value 03/21/2018 101 CO2 (mEq/L) Date Value 03/21/2018 27 Creatinine (mg/dL) Date Value 03/21/2018 0.81 BUN (mg/dL) Date Value 03/21/2018 12 Anion Gap (no units) Date Value 03/21/2018 10 Calcium (mg/dL) Date Value 03/21/2018 8.9 COAGS: INR Date Value Ref Range Status 03/21/2018 1.10 0.90 - 1.30 Final Comment: Note: Reference Range Change Vitamin K Antagonist (VKA) Therapeutic Range: INR 2 to 3 (Target INR of 2.5) Note: For patients treated with VKA drugs, such as warfarin, the [employer] 2012 Guideline recommends a therapeutic INR range of 2 to 3 (target INR of 2.5). This recommendation includes high-risk patients with antiphospholipid syndrome with previous arterial or venous thromboembolism, current-generation mechanical or bioprosthetic aortic heart valve replacement. VKA Therapeutic Range for some Mechanical Valve Replacement: INR 2.5 to 3.5 (Target INR of 3) Note: Patients with mechanical aortic valve replacement and additional risk factors for thromboembolic events (atrial fibrillation, previous thromboembolism, LV dysfunction, hypercoagulable conditions) or an older generation mechanical AVR (i.e., ball in-Cage) or any mechanical MVR should have a INR therapeutic range of 2.5 to 3.5 target INR of 3). Geo WALLACE, et al. Chest 2012; 141:7S-47S Shanta BARNES, et al. [facility] 2017; 70: 252-289 SURGICAL PATHOLOGY: N/A FLUID ANALYSIS: N/A Imaging: none SIGNATURE: Alan Worthy MD PATIENT NAME: Andreea Aguilera DATE: 03/22/18 TIME: 6:06 AM PAGER/CONTACT #: [phone] Normal [facility] Protimeon 03-22-2018 INR Coag RelTime (PPP) 1.15 {INR} Normal 0.90-1.30 [place] Comment on above: Result Comment: Note : Reference Range ChangeVitamin K Antagonist (VKA) Therapeutic Range: INR 2 to 3 (Target INRof 2.5)Note: For patients treated with VKA drugs, such as warfarin, theAmerican College of Chest Physicians 2012 Guideline recommends a therapeuticINR range of 2 to 3 (target INR of 2.5). Thisrecommendation includes high-risk patients with antiphospholipidsyndrome with previous arterial or venous thromboembolism,current-generation mechanical or bioprosthetic aortic heartvalve replacement.VKA Therapeutic Range for some Mechanical Valve Replacement:INR 2.5 to 3.5 (Target INR of 3)Note: Patients with mechanical aortic valve replacement andadditional risk factors for thromboembolic events (atrialfibrillation, previous thromboembolism, LV dysfunction,hypercoagulable conditions) or an older generation mechanicalAVR (i.e., ball in-Cage) or any mechanical MVR should havea INR therapeutic range of 2.5 to 3.5 target INR of 3).Geo WALLACE, et al. Chest 2012; 141:7S-47SShanta BARNES et al. JAC 2017; 70: 252-289 Performed By: #### P 8 ####[address] [address] Prothrombin time (PT) Coag time (PPP) 11.6 s Normal 9.7-13.0 [place] Comment on above: Performed By: #### P 8 ####[address] [address] THERAPY NTon 03-22-2018 THERAPY NT HNO ID: [id number] Author: Tania Britton Service: Physical Therapy Author Type: Thermite Bomb Loader Type: Therapy (PT/OT/Speech/Resp) Filed: 03/22/2018 9:40 AM Note Text: Attestation signed by Echo Mobley at 03/22/2018 3:50 PM I reviewed and agree with the documentation corresponding to this therapy visit. SIGNATURE: Echo Mobley, PT DATE: March 22, 2018 TIME: 3:50 PM Physical Therapy Treatment SERVICE DATE: 03/22/2018 SERVICE TIME: 906 to 929 ROOM: [id number] Recommended Discharge Disposition: Home PT Anticipated Discharge Needs: Family Training;Physical Assist at Home Physical Assist at Home for: Cleaning;Laundry;Safety;Shop ping;Transportation Recommended Discharge Equipment: No equipment needs anticipated PT Recommendations to Nursing: Ambulate with device;To bathroom;Transfer to/from chair;OOB for Meals;With assist of 1 person Device: Wheeled Walker PT 6 Clicks Score: 23 Precautions/Activity Restrictions: Total Knee Replacement;Weight Bearing Restrictions Isolation Type: None Extremity With Weight Bearing Restricted: Right Lower Extremity Right Lower Extremity Weight Bearing Status: WBAT ASSESSMENT : Patient Disposition at Start of Session: OOB in Chair;Call Thomas in Reach;Family Present Patient Disposition at End of Session: OOB in Chair;Call Thomas in Reach;Family Present Tolerated Full Session Patient progressing as expected toward goals with improvement with ambulation endurance. Patient and spouse verbalized good understanding of exercises and safety with mobility. Anticipate discharge to home today. Physical Therapy Problem List: Education Deficit;Edema;Pain;Safety Deficits;Decreased Activity Tolerance;Decreased Range Of Motion;Decreased Strength;Functional Mobility Impairment;Balance Impaired Patient /Caregiver Goals: Go Home Goals for Plan of Care: Transfer supine to/from sit with: Independent Transfer sit to/from stand with: Independent Ambulate with: Independent Distance: 80 Device: Wheeled Walker Ambulate up and down steps with: Supervision Number of steps: 12 Device: Rail;Cane ROM: R knee 0-110 Progress Toward Goals: Progressing as expected Rehab Potential: Good PLAN: Treatment Frequency (times per week): BID Current admission Treatment Interventions: Education;Self Care / Home Management;Energy Conservation Training;Joint Mobility;Strengthening;Funct ional Mobility Training;Balance Training;Neuromuscular Re-education;Edema Management;Pain Management Plan of Care developed with: Patient;Family TREATMENT INTERVENTIONS: Therapy Diagnosis: Reduced mobility-other;Muscle Weakness (generalized);Unsteadiness on feet;Abnormalities of gait and mobility-other;Difficulty walking-musculoskeletal Interventions Provided: Therapeutic Exercise (56327);Therapeutic Activity (96517);Gait Training (50020) Therapeutic Exercise (95962) Treatment Minutes: 13 1 unit Skilled Intervention(s): Instruction in therapeutic exercise Patient completed right total knee arthroplasty protocol (ankle pump, quad set, gluteal set, heel slide, hip abd/add, straight leg raise, short arc quad, long arc quad) x 12 reps with min amount of assist. Patient demonstrated fair quad control with exercises. Patient demonstrates 6-48 degrees of supine AAROM to right knee. Patient reports 4-5/10 pain. Ice applied to surgical knee and elevated on pillow in recliner chair. Verbal and tactile cuing provided to breathe and maintain proper alignment. Therapeutic Activity (37403) Treatment Minutes: 2 0 units Skilled Intervention(s): Instructed patient in supine to and from sit pushing with upper extremities to sit up with bed flat with/without use of left leg to assist with management of right leg. Education with use of cold pack and positioning for pain and edema management. Recommend that he limit sitting/standing with feet on the floor to increments of 15 minutes to minimize swelling. Gait Training (04540) Treatment Minutes: 8 1 unit Skilled Intervention(s): Instruction in sit to stand technique with proper hand placement and body positioning at edge of bed/chair, Instruction in stand to sit technique with LE's touching chair/bed and reaching back for surface. Instruction in correction of gait deviations to look up, keep safely within walker frame, work on equalizing stance time and to progress to reciprocal pattern. Total Timed Code Treatment Minutes: 23 Total Treatment Time (minutes): 23 SUBJECTIVE: Current Hospital Course: Chart reviewed and no significant medical updates relevant to therapy were noted Reason for Physical Therapy Consult : R TKA post surgical care Relevant Past Medical History: OA R knee, HTN Patient Report: Pain 4-5/10 with mobility. Denied need to practice stairs and able to verbalize proper sequencing. 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: CURRENT FUNCTIONAL STATUS: Current Functional Mobility Assist Level Additional Information Rolling Supine to Sit Stand By Assistance Sit to Supine Stand By Assistance Scooting Sit to Stand Supervision Stand to Sit Supervision Bed to Chair Toilet/Commode Contact Guard Assistance Gait Supervision Gait Device: Wheeled Walker Gait Distance (feet): intervals of 50-60ft Stairs Curb Step Car Transfer Gait Deviations Right Lower Extremity: Stance time decreased;Heel strike during initial stance decreased;Push-off during terminal stance decreased General Gait Deviations: Ruby decreased Balance: Static Standing;Dynamic Standing Static Standing Balance: (fair+) Dynamic Standing Balance: Minimal Assistance Activity Tolerance: Standing Activity Standing Activity: static + ambulation Standing Activity Tolerance (in minutes): 4 Please see discipline specific clinical documentation flowsheet for complete details for this therapy evaluation/treatment. SIGNATURE: Tania Britton PTA PATIENT NAME: Andreea Aguilera DATE: March 22, 2018 TIME: 9:34 AM Normal [facility] ALLIED HEALTHon 03-21-2018 ALLIED HEALTH HNO ID: [id number] Author: Lou (Cassidy) Jocelin Service: Nursing Author Type: Registered Nurse Type: Allied Health Filed: 03/21/2018 8:09 AM Note Text: ANCILLARY SPECIALTY EROSION CONTROL SPECIALIST PROGRESS NOTE SERVICE DATE: 03/21/2018 SERVICE TIME: 729 Spoke to patient at bedside, he is doing well, pain well managed. He is planning discharge home with [facility], has all DME needs at home (WW/cane), CM aware. Patient states he is already set up for Outpatient PT at [facility] in [place] on 04/03. He has no needs at this time, I will continue to follow. SIGNATURE: Lou Monreal RN PATIENT NAME: Andreea Aguilera DATE: March 21, 2018 TIME: 8:08 AM PAGER/CONTACT #: [phone] Normal [facility] Basic Panelon 03-21-2018 Creatinine mass conc 0.81 mg/dL Normal 0.67-1.17 [place] Comment on above: Performed By: #### P 8 ####[facility] [place], [place] [address] Anion gap 3 molar conc 10 mmol/L Normal 8-16 [place] Comment on above: Performed By: #### P 8 ####[facility] [place], [place] [address] Calcium mass conc 8.9 mg/dL Normal 8.5-10.1 [place] Comment on above: Performed By: #### P 8 ####[address] [address] CO2 molar conc 27 mmol/L Normal 21-32 [place] Comment on above: Performed By: #### P 8 ####[facility] [place], [place] [address] Glucose mass conc 103 mg/dL High 70-99 [place] Comment on above: Performed By: #### P 8 ####[facility] [place], [place] [address] Urea nitrogen mass conc 12 mg/dL Normal 7-18 [place] Comment on above: Performed By: #### P 8 ####[facility] [place], [place] [address] Chloride molar conc 101 mmol/L Normal 98-107 [place] Comment on above: Performed By: #### P 8 ####[address] [address] Potassium molar conc 4.2 mmol/L Normal 3.5-5.1 [place] Comment on above: Performed By: #### P 8 ####[facility] [place], [place] [address] Sodium molar conc 134 mmol/L Low 136-145 [place] Comment on above: Performed By: #### P 8 ####[facility] [place], [place] [address] CASE MGT INIT Noel 2017 CASE MGT INIT WILNER HNO ID: [id number] Author: Sandy (Rn) CASSIDY Sexton Service: Care Management Author Type: Registered Nurse Type: Care Mgt Initial Assessment Filed: 03/21/2018 12:29 PM Note Text: CARE MANAGEMENT: ASSESSMENT AND DISCHARGE PLAN SERVICE DATE: 03/21/2018 SERVICE TIME: 12:23 PM PRIMARY CARE PHYSICIAN: Baljeet Mitchell CNP ADMISSION STATUS: Inpatient Needs Prior to Discharge: Home Care Order MEDICAL: Patient/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 No Advance Directive: Current Advance Directive: Living Will;Health Care Power of Soap Drier Tender In Chart: No Color Checker Roving Or Yarn Attempted to Assist with AD Completion: Yes Action: (encouraged to bring copies) Health Literacy: 1. How often do you need to have someone help you when you read instructions, pamphlets, or other written material from your doctor or pharmacy? Never - 1 2. How confident are you filling out medical forms by yourself? Extremely - 1 If Patient scores > 3 on either question, the following interventions were put into place: Patient did not score > 3 FUNCTIONAL AND COGNITIVE/BEHAVIORAL PRIOR TO ADMISSION: Baseline Mental Status: Alert AND Oriented, Person, Place , Time and Situation Functional Status: Independent Does Patient Currently Receive Any Community Services or Home Care? None Equipment Prior to Admission: Cane - Straight Elevated toilet seat Tub bench/chair Walker Wheelchair Has the Patient Been in a Residential Facility in the Past 30 days? No SOCIAL: Living Arrangement: Home Lives With: Spouse Financial Resources: Disabled Primary Contact: Extended Emergency Contact Information Primary Emergency Contact: Sheree Aguilera Address: [address] [place] [address] [address] [facility] Mobile Relation: Spouse Secondary Emergency Contact: Jose J Aguilera Mobile Relation: Son Supportive: Yes Other Important Patient Contacts: None Caregiver Assessment: Caregiver is ready, willing and able to meet the patient's needs as recommended by the inter-professional team? Yes Patient's transition needs and plan for meeting these needs: plan home with family assist and home care services Does the patient have an acute stroke diagnosis, or has the patient had a stroke during this admission? No Medication Adherence: I am convinced of the importance of my prescription medication: Agree completely - 0 I worry that my prescription medication will do more harm than good to me Disagree completely - 0 I feel financially burdened by my hdz-et-odqlgn expenses for my prescription medication: Disagree completely - 0 Patient is categorized as low risk < 2 Are you interested in bedside delivery of your medications? Yes Food Concerns: In the Last Month, Have You had Trouble Getting Food? No trouble getting food During the Last Month, Have You Worried Whether Your Food Would Run Out Before You Had Enough Money to Buy More? No Is the Patient Psychosocially Complex? No ASSESSMENT AND PLAN: Medical Needs: None Psychosocial Needs: None FREEDOM OF CHOICE EXPLAINED: The patient and/or family has been given the Provider List: Yes POTENTIAL TRANSITION PLANS Home Care Chart reviewed. Met with patient at bedside. 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 Has dme listed in assessment, no equipment needed at this time. PT.OT eval completed recommending home with home care, patient is agreeable and requests home health [facility], referral sent await acceptance. Will need orders. SW has been consulted as patient does not have rx coverage, [facility] Will follow. SIGNATURE: Sandy Sexton RN PATIENT NAME: Andreea Aguilera DATE: March 21, 2018 TIME: 12:22 PM PAGER/CONTACT #: [phone] Normal [facility] Hemogramon 03-21-2018 Erythrocyte distribution width Auto Ratio (RBC) 13.9 % Normal 11.6-14.4 [place] Comment on above: Performed By: #### C BC1 ####[place] [id number] Hematocrit Auto Volume Fraction (Bld) 40.3 % Normal 40.1-51.0 [place] Comment on above: Performed By: #### C BC1 ####[place] [address] Hemoglobin mass conc (Bld) 13.6 g/dL Low 13.7-17.5 [place] Comment on above: Performed By: #### C BC1 ####[place] [address] MCH Auto Entitic mass (RBC) 28.6 pg Normal 25.7-32.2 [place] Comment on above: Performed By: #### C BC1 ####[place] [address] MCHC Auto mass conc (RBC) 33.7 % Normal 32.3-36.5 [place] Comment on above: Performed By: #### C BC1 ####[place] [address] MCV Auto Entitic volume (RBC) 84.8 fL Normal 83.2-95.6 [place] Comment on above: Performed By: #### C BC1 ####[place] [address] Platelet mean volume Auto Entitic volume (Bld) 9.2 fL Normal 8.7-12.0 [place] Comment on above: Performed By: #### C BC1 ####[place] [address] Platelets Auto #/vol (Bld) 260 thou/cmm Normal 141-365 [place] Comment on above: Performed By: #### C BC1 ####[place] [address] RBC Auto #/vol (Bld) 4.75 mil/cmm Normal 4.63-6.08 [place] Comment on above: Performed By: #### C BC1 ####[place] [address] RDW SD 43.1 fl Normal 36.1-45.8 [place] Comment on above: Performed By: #### C BC1 ####[facility] [place], [place] [address] WBC Auto #/vol (Bld) 8.58 thou/cmm Normal 4.23-9.07 [place] Comment on above: Performed By: #### C BC1 ####[address] [address] PROGRESSon 03-21-2018 Protein mass conc HNO ID: [id number] Author: Alan (Ileana Worthy Service: Orthopaedic Surgery Author Type: Resident Type: Progress Notes Filed: 03/21/2018 6:21 AM Note Text: Attestation signed by Ramos North at 03/21/2018 9:50 AM I saw and evaluated the patient. Discussed with the resident and agree with resident's findings and plan as documented in the resident's note. Lovenox-Coumadin. Check INR today DC likely home tomorrow ORTHOPAEDIC SURGERY POSTOP DAILY PROGRESS NOTE Patient Name: Andreea Aguilera Date of Evaluation: 03/21/2018 Admission Date: 03/20/2018 Time of Evaluation: 6:01 AM ASSESSMENT: Patient is a 72 y.o. M POD #1 s/p R TKA. PLAN: -Pain control -PT/OT WBAT -DVT ppx: Lovenox 40 BID bridge, coumadin 5 mg daily -Aquacel for 7 days -D/c planning: home likely tomorrow INTERVAL HPI: Patient monitored, no new events overnight. Patient states that they are comfortable. Well Controlled pain. Denies nausea/vomitting. OBJECTIVE: BP 144/92 Pulse 72 Temp 36.4 ?C (97.5 ?F) (Temporal Artery) Resp 18 Ht 180.3 cm (5' 10.98) Wt 95.3 kg (210 lb 1.6 oz) SpO2 94% BMI 29.32 kg/m? Intake/Output Summary (Last 24 hours) 03/20 2300 - 03/21 0659 In: - Out: 550 [Urine:550] Exam: General: NAD, AAOx3 Extremities: Right Lower Extremity: Dressing clean, dry and intact. Surgical site no drainage and skin edges well approximated. SILT S/S/SP/DP/T Motor intact DF/PF/EHL DP pulse palpable, foot warm with pulses Compartments soft, compressible. Tolerates passive stretch of digits. Labs: Glucose (mg/dL) Date Value 03/07/2018 101 Potassium (mEq/L) Date Value 03/07/2018 4.5 Sodium (mEq/L) Date Value 03/07/2018 139 Chloride (mEq/L) Date Value 03/07/2018 104 CO2 (mEq/L) Date Value 03/07/2018 26 Creatinine (mg/dL) Date Value 03/07/2018 0.93 BUN (mg/dL) Date Value 03/07/2018 14 Anion Gap (no units) Date Value 03/07/2018 14 Calcium (mg/dL) Date Value 03/07/2018 9.3 HGB (g/dL) Date Value 03/07/2018 14.9 Hematocrit (%) Date Value 03/07/2018 44.4 WBC (thou/cmm) Date Value 03/07/2018 5.65 Alan Worthy MD 03/21/2018 6:21 AM Normal [facility] Protimeon 03-21-2018 INR Coag RelTime (PPP) 1.10 {INR} Normal 0.90-1.30 [place] Comment on above: Result Comment: Note : Reference Range ChangeVitamin K Antagonist (VKA) Therapeutic Range: INR 2 to 3 (Target INRof 2.5)Note: For patients treated with VKA drugs, such as warfarin, theAmerican College of Chest Physicians 2012 Guideline recommends a therapeuticINR range of 2 to 3 (target INR of 2.5). Thisrecommendation includes high-risk patients with antiphospholipidsyndrome with previous arterial or venous thromboembolism,current-generation mechanical or bioprosthetic aortic heartvalve replacement.VKA Therapeutic Range for some Mechanical Valve Replacement:INR 2.5 to 3.5 (Target INR of 3)Note: Patients with mechanical aortic valve replacement andadditional risk factors for thromboembolic events (atrialfibrillation, previous thromboembolism, LV dysfunction,hypercoagulable conditions) or an older generation mechanicalAVR (i.e., ball in-Cage) or any mechanical MVR should havea INR therapeutic range of 2.5 to 3.5 target INR of 3).Geo GH, et al. Chest 2012; 141:7S-47SNishimjanene RA, et al. JACC 2017; 70: 252-289 Performed By: #### P 8 ####[place] [address] Prothrombin time (PT) Coag time (PPP) 11.1 s Normal 9.7-13.0 [place] Comment on above: Performed By: #### P 8 ####[address] [address] THERAPY NTon 03-21-2018 THERAPY NT HNO ID: [id number] Author: Carey Moss/Emilio Fields OT Service: Occupational Therapy Author Type: Occupational Therapist Type: Therapy (PT/OT/Speech/Resp) Filed: 03/21/2018 3:08 PM Note Text: Occupational Therapy Evaluation SERVICE DATE: 03/21/2018 SERVICE TIME: 1343 to 1407 ROOM: [place] [id number] Recommended Discharge Disposition: Home Recommended Discharge Disposition Comments: with 24 hr family assist to ensure safety with ADLs and functional mobility Anticipated Discharge Needs: Family Training;Physical Assist at Home Physical Assist at Home for: Cleaning;Laundry;Safety;Shop ping;Transportation OT Recommendations to Nursing: To Bathroom for ADL?s /and or Toileting;With assist of 1 person Equipment: Wheeled Walker OT 6 Clicks Score: 21 Precautions/Activity Restrictions: Total Knee Replacement;Weight Bearing Restrictions Extremity With Weight Bearing Restricted: Right Lower Extremity Right Lower Extremity Weight Bearing Status: WBAT ASSESSMENT: OT Evaluation Low Complexity: Occupational Profile - Brief review of patient's medical record completed (please see current hospital course of evaluation). Occupational Performance - Pt presents with deficits in grooming, UE bathing/dressing, LE bathing/dressing, functional transfers, functional mobility, decreased safety awareness Complexity in Clinical Decision Making - The extent of clinical reasoning was low, number of treatment options limited, no need for modifications during the evaluation process: OA R knee Patient Disposition at Start of Session: Family Present;Seen in therapy department Patient Disposition at End of Session: OOB in Chair;Call Thomas in Reach;Family Present Tolerated Full Session Occupational Therapy Problem List: Safety Deficits;Impaired Self Care;Functional Mobility Impairment Patient /Caregiver Goals: Go Home Goals for Plan of Care: Grooming with: Independent Lower Body Bathing with: Modified Independent Lower Body Dressing with: Modified Independent Additional Goal 1: Pt will demo good safety with ADLs and functional mobility Demonstrate Competence With Education with: Independent Transfer: all functional transfers: SBA PLAN: Treatment Frequency (times per week): 5 (1-4) Current admission Treatment Interventions: Education;Self Care / Home Management;Functional Mobility Training Plan of Care developed with: Patient;Family TREATMENT INTERVENTIONS: Therapy Diagnosis: Reduced mobility-other;Decreased activities of daily living (ADL);Unsteadiness on feet Interventions Provided: Evaluation;Self Penitentiary Management (36235) $ Evaluation-Low (57922) Billed Units: 1 unit Self Penitentiary Management (10498) Treatment Minutes: 9 1 unit Skilled Intervention(s): Educated pt on role of OT in the acute care setting. Provided home going ADL/functional mobility training in therapy dept with patient and pt family ( and son). Facilitated / pt completed a tub shower transfer and a 'simulated' car transfer (utilizing the tub shower set up) to increase comfort and independence with home going ADLs and functional mobility; instructed / demonstrated safe set-up of hygiene items during bathing ADL, safe transfer strategies after a TKA, assist/supervision required initially at home to ensure safe ADLs, and adaptive equipment to utilize at home (shower chair, costumed character). Educated pt on LB dressing technique first in, last out to increase ADL independence; provided cuing and min assist to complete. Provided min verbal cues throughout session to demo good safety awareness. Facilitated safe functional mobility to bathroom to complete toilet transfer; provided min verbal cuing and min fall guarding. Educated pt on fall prevention strategies, reinforcing the use of their call light / up with assistance for functional mobility; Pt left up in chair, call light in reach upon OT exit. Total Timed Code Treatment Minutes: 9 Total Treatment Time (minutes): 24 FUNCTIONAL G CODE: OT 6 Clicks Score: 21 (03/21/18 1343) Self Care Current Status (G8987): CJ (03/21/18 1343) Self Care Goal Status (G8988): CI (03/21/18 1343) Based on clinical assessment and the score on the 6 Clicks Functional Assessment Tool, the G code and corresponding severity modifiers are documented above. 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 09/18 R knee. 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: Responsiveness: Alert Follows Commands: 2-step Commands Executive Function Deficits: Safety Awareness Safety Awareness Deficit: Minimal impairment CURRENT FUNCTIONAL STATUS: Current Activities of Daily Living Assist Level Feeding Set Up Grooming Stand By Assistance Bathing Upper Body Contact Guard Assistance Bathing Lower Body Minimal Assistance Dressing Upper Body Set Up Dressing Lower Body Minimal Assistance Toileting Supervision Functional Mobility Assist Level Rolling Supine to Sit Sit to Supine Scooting Sit to Stand Contact Guard Assistance Stand to Sit Contact Guard Assistance Bed to Chair Toilet/Commode Contact Guard Assistance Functional Mobility Contact Guard Assistance Wheeled Walker Hand Dominance: Right Range of Motion: WFL Strength: WFL Tub Transfer: Contact Guard Assistance Car Transfer: Contact Guard Assistance Activity Tolerance: Sitting Activity;Standing Activity Sitting Activity: LB dressing Sitting Activity Tolerance (in minutes): 5 Standing Activity: Functional mobility/transfers in therapy dept; bathroom transfer Standing Activity Tolerance (in minutes): 15 Please see discipline specific clinical documentation flowsheet for complete details for this therapy evaluation/treatment. SIGNATURE: DELFIN Elizabeth/Osvaldo PATIENT NAME: Andreea Aguilera DATE: March 21, 2018 TIME: 3:02 PM [facility] THERAPY NT HNO ID: [id number] Author: Ronna Clark Service: Physical Therapy Author Type: Thermite Bomb Loader Type: Therapy (PT/OT/Speech/Resp) Filed: 03/21/2018 3:14 PM Note Text: Attestation signed by Echo Mobley at 03/21/2018 4:19 PM I reviewed and agree with the documentation corresponding to this therapy visit. SIGNATURE: Echo Mobley, PT DATE: March 21, 2018 TIME: 4:19 PM Physical Therapy Treatment SERVICE DATE: 03/21/2018 SERVICE TIME: 1312 to 1335 ROOM: [id number] Recommended Discharge Disposition: Home PT Anticipated Discharge Needs: Family Training;Physical Assist at Home Physical Assist at Home for: Cleaning;Laundry;Safety;Shop ping;Transportation Recommended Discharge Equipment: No equipment needs anticipated PT Recommendations to Nursing: Ambulate with device;To bathroom;Transfer to/from chair;OOB for Meals;With assist of 1 person Device: Wheeled Walker PT 6 Clicks Score: 23 Precautions/Activity Restrictions: Total Knee Replacement;Weight Bearing Restrictions Extremity With Weight Bearing Restricted: Right Lower Extremity Right Lower Extremity Weight Bearing Status: WBAT ASSESSMENT : Pt progressing towards goals for home going. Patient and family demo good understanding with HEP and proper mobility. Patient Disposition at Start of Session: Supine in Bed;Call Thomas in Reach Patient Disposition at End of Session: Seen in therapy department (pt awaiting for OT dept. ) Tolerated Full Session Physical Therapy Problem List: Education Deficit;Edema;Pain;Safety Deficits;Decreased Activity Tolerance;Decreased Range Of Motion;Decreased Strength;Functional Mobility Impairment;Balance Impaired Patient /Caregiver Goals: Go Home Goals for Plan of Care: Transfer supine to/from sit with: Independent Transfer sit to/from stand with: Independent Ambulate with: Independent Distance: 80 Device: Wheeled Walker Ambulate up and down steps with: Supervision Number of steps: 12 Device: Rail;Cane ROM: R knee 0-110 Progress Toward Goals: Progressing as expected Rehab Potential: Good PLAN: Treatment Frequency (times per week): BID Current admission Treatment Interventions: Education;Self Care / Home Management;Energy Conservation Training;Joint Mobility;Strengthening;Funct ional Mobility Training;Balance Training;Neuromuscular Re-education;Edema Management;Pain Management Plan of Care developed with: Patient;Family TREATMENT INTERVENTIONS: Therapy Diagnosis: Reduced mobility-other;Muscle Weakness (generalized);Unsteadiness on feet;Abnormalities of gait and mobility-other;Difficulty walking-musculoskeletal Interventions Provided: Therapeutic Exercise (32830);Therapeutic Activity (40491);Gait Training (18898) Therapeutic Exercise (68763) Treatment Minutes: 5 0 units Skilled Intervention(s): Instruction in therapeutic exercise for ROM and strengthening Educated Patient and family in R total knee arthroplasty protocol (ankle pump, quad set, gluteal set, heel slide, hip abd/add, straight leg raise, short arc quad, long arc quad) Patient reports 3-4/10 pain. Therapeutic Activity (93078) Treatment Minutes: 10 1 unit Skilled Intervention(s): Instructed patient in supine to and from sit pushing with upper extremities to sit up with verbal cue for technique. Instruction in sit to and from stand technique with proper hand placement and body positioning at edge of bed/chair with verbal cues for safety. Gait Training (75785) Treatment Minutes: 8 1 unit Skilled Intervention(s): Instruction in stair negotiation up/down 4 steps with 1 rail/cane and Instruction in use of equipment, cues for sequence and pattern with ambulation with wheeled walker . Pt ambulated with steady gait and without LOB. Total Timed Code Treatment Minutes: 23 Total Treatment Time (minutes): 23 SUBJECTIVE: Current Hospital Course: Chart reviewed and no significant medical updates relevant to therapy were noted Reason for Physical Therapy Consult : R TKA post surgical care Relevant Past Medical History: OA R knee, PE, HTN Patient Report: Pt was in bed and agreeable to PT session, c/o pain 09/18. Pt's family present for family training, patient brought to dept via wheelchair . Home Environment Patient Lives With: Spouse Assistance Available: 24 Hour (sons live next door) Entry To Home: Stairs;Without Rail Number Of Stairs Into Home: 2 Number Of Stairs To Bed/Bath: 12 Stairs to Bed/Bath with: Unilateral Rail Equipment Owned: Cane;Wheeled Walker Prior Functional Level: Within Functional Limits Prior Functional Level Comments: Ambulated with cane outside of home 2/2 knee pain OBJECTIVE: CURRENT FUNCTIONAL STATUS: Current Functional Mobility Assist Level Additional Information Rolling Supine to Sit Stand By Assistance Sit to Supine Stand By Assistance Scooting Sit to Stand Stand By Assistance Stand to Sit Stand By Assistance Bed to Chair Toilet/Commode Gait Stand By Assistance Gait Device: Wheeled Walker Gait Distance (feet): 20 x 3 Stairs Contact Guard Assistance Stairs Device: Cane;Rail Number of Stairs: 4 Curb Step Car Transfer Gait Deviations Right Lower Extremity: Weight bearing decreased;Heel strike during initial stance decreased;Stance time decreased;Push-off during terminal stance decreased;Knee flexion during stance increased;Step length decreased General Gait Deviations: Ruby decreased;Non-functional gait speed Please see discipline specific clinical documentation flowsheet for complete details for this therapy evaluation/treatment. SIGNATURE: Ronna Clark PTA PATIENT NAME: Andreea Aguilera DATE: March 21, 2018 TIME: 2:30 PM Normal [facility] THERAPY NT HNO ID: [id number] Author: Ronna Clark Service: Physical Therapy Author Type: Thermite Bomb Loader Type: Therapy (PT/OT/Speech/Resp) Filed: 03/21/2018 11:34 AM Note Text: Attestation signed by Echo BanerjeePt) Itz at 03/21/2018 4:19 PM I reviewed and agree with the documentation corresponding to this therapy visit. SIGNATURE: Echo Mobley, PT DATE: March 21, 2018 TIME: 4:19 PM Physical Therapy Treatment SERVICE DATE: 03/21/2018 SERVICE TIME: 1055 to 1121 ROOM: [id number] Recommended Discharge Disposition: Home PT Anticipated Discharge Needs: Family Training;Physical Assist at Home Physical Assist at Home for: Cleaning;Laundry;Safety;Shop ping;Transportation Recommended Discharge Equipment: No equipment needs anticipated PT Recommendations to Nursing: Ambulate with device;To bathroom;Transfer to/from chair;OOB for Meals;With assist of 1 person Device: Wheeled Walker PT 6 Clicks Score: 19 Precautions/Activity Restrictions: Total Knee Replacement;Weight Bearing Restrictions Extremity With Weight Bearing Restricted: Right Lower Extremity Right Lower Extremity Weight Bearing Status: WBAT ASSESSMENT : Pt progressing towards goals for home going. Family training in therapy Dept this afternoon. Patient Disposition at Start of Session: Supine in Bed;Call Thomas in Reach Patient Disposition at End of Session: OOB in Chair;Call Thomas in Reach Tolerated Full Session Physical Therapy Problem List: Education Deficit;Edema;Pain;Safety Deficits;Decreased Activity Tolerance;Decreased Range Of Motion;Decreased Strength;Functional Mobility Impairment;Balance Impaired Patient /Caregiver Goals: Go Home Goals for Plan of Care: Transfer supine to/from sit with: Independent Transfer sit to/from stand with: Independent Ambulate with: Independent Distance: 80 Device: Wheeled Walker Ambulate up and down steps with: Supervision Number of steps: 12 Device: Rail;Cane ROM: R knee 0-110 Progress Toward Goals: Progressing as expected Rehab Potential: Good PLAN: Treatment Frequency (times per week): BID Current admission Treatment Interventions: Education;Self Care / Home Management;Energy Conservation Training;Joint Mobility;Strengthening;Funct ional Mobility Training;Balance Training;Neuromuscular Re-education;Edema Management;Pain Management Plan of Care developed with: Patient;Family TREATMENT INTERVENTIONS: Therapy Diagnosis: Reduced mobility-other;Muscle Weakness (generalized);Unsteadiness on feet;Abnormalities of gait and mobility-other;Difficulty walking-musculoskeletal Interventions Provided: Therapeutic Exercise (90643);Therapeutic Activity (21990);Gait Training (29002) Therapeutic Exercise (50440) Treatment Minutes: 10 1 unit Skilled Intervention(s): Instruction in therapeutic exercise for ROM and strengthening Patient completed R total knee arthroplasty protocol (ankle pump, quad set, gluteal set, heel slide, hip abd/add, straight leg raise, short arc quad, long arc quad) x 12 reps with min amount of assist. Patient demonstrated fair - quad control with exercises. Patient reports 4/10 pain. Ice applied to surgical knee and elevated on pillow and/or with foot of bed elevated. Therapeutic Activity (72405) Treatment Minutes: 5 0 units Skilled Intervention(s): Instructed patient in supine to sit pushing with upper extremities to sit up with verbal cues for proper technique with bed flat . Instruction in sit to and from stand technique with proper hand placement and body positioning at edge of bed/chair with verbal cues for safety. Gait Training (39817) Treatment Minutes: 10 1 unit Skilled Intervention(s): Instruction in use of equipment, cues for sequence and pattern with ambulation with wheeled walker , tolerated increased ambulation distance. Total Timed Code Treatment Minutes: 25 Total Treatment Time (minutes): 25 SUBJECTIVE: Current Hospital Course: Chart reviewed and no significant medical updates relevant to therapy were noted Reason for Physical Therapy Consult : R TKA post surgical care Relevant Past Medical History: OA R knee, PE, HTN Patient Report: Pt was in bed and agreeable to PT session, c/o pain 4/10 . Family present. Home Environment Patient Lives With: Spouse Assistance Available: 24 Hour (sons live next door) Entry To Home: Stairs;Without Rail Number Of Stairs Into Home: 2 Number Of Stairs To Bed/Bath: 12 Stairs to Bed/Bath with: Unilateral Rail Equipment Owned: Cane;Wheeled Walker Prior Functional Level: Within Functional Limits Prior Functional Level Comments: Ambulated with cane outside of home 2/2 knee pain OBJECTIVE: CURRENT FUNCTIONAL STATUS: Current Functional Mobility Assist Level Additional Information Rolling Supine to Sit Stand By Assistance Sit to Supine Scooting Sit to Stand Contact Guard Assistance Stand to Sit Contact Guard Assistance Bed to Chair Toilet/Commode Contact Guard Assistance Gait Contact Guard Assistance Gait Device: Wheeled Walker Gait Distance (feet): 30 x 2 Stairs Curb Step Car Transfer Gait Deviations Right Lower Extremity: Weight bearing decreased;Stance time decreased;Heel strike during initial stance decreased;Push-off during terminal stance decreased;Knee flexion during stance increased;Step length decreased General Gait Deviations: Ruby decreased;Non-functional gait speed Please see discipline specific clinical documentation flowsheet for complete details for this therapy evaluation/treatment. SIGNATURE: Ronna Clark PTA PATIENT NAME: Andreea Aguilera DATE: March 21, 2018 TIME: 11:29 AM Normal [facility] ABO/Rh Confirmationon 2017 ABO group Nom (Bld) A Normal [place] Comment on above: Performed By: #### A FELECIA ####[place] [address] RH Type Positive Normal [place] Comment on above: Performed By: #### A FELECIA ####[place] [address] ANES Ebonie 03-20-2018 ANES POST HNO ID: [id number] Author: Tha Zavala Service: Anesthesiology Author Type: Physician Type: Anesthesia PostOp Filed: 03/20/2018 4:41 PM Note Text: POST ANESTHESIA EVALUATION NOTE SERVICE DATE: 03/20/2018 SERVICE TIME: 4:41 PM : 1945 Vitals: 03/20/18 1020 03/20/18 1301 03/20/18 1415 03/20/18 1555 Temp: 36.6 ?C (97.9 ?F) 36.4 ?C (97.5 ?F) 36.3 ?C (97.3 ?F) 36 ?C (96.8 ?F) 03/20/18 1430 03/20/18 1445 03/20/18 1500 03/20/18 1555 BP: 136/78 132/74 130/75 158/98 03/20/18 1430 03/20/18 1445 03/20/18 1500 03/20/18 1555 Pulse: 70 69 67 112 03/20/18 1430 03/20/18 1445 03/20/18 1500 03/20/18 1555 Resp: 16 14 12 16 03/20/18 1430 03/20/18 1445 03/20/18 1500 03/20/18 1555 SpO2: 93% 93% 93% 95% Validated Vital Signs: Yes POST ANES STATUS: No apparent anesthetic complications. The patient is appropriately hydrated with stable respiratory and cardiovascular status. Patient has safe and adequate airway control. The patient has appropriate pain relief and no significant post operative nausea or vomiting. The patient has achieved baseline mental status. Intra-Operative Events: No Significant Anesthesia Events Further assessment by Anesthesia Service: None Other Remarks: SIGNATURE: Tha Tellez MD PATIENT NAME: Andreea Aguilera DATE: March 20, 2018 TIME: 4:41 PM PAGER/CONTACT #: [phone] [facility] ANES PREOPon 03-20-2018 ANES PREOP HNO ID: [id number] Author: Aden Mayfield Service: Anesthesiology Author Type: Physician Type: Anesthesia PreOp Filed: 03/20/2018 10:29 AM Note Text: ANESTHESIOLOGY DAY OF SURGERY NOTE SERVICE DATE: 03/20/2018 SERVICE TIME: 10:23 AM : 1945 Procedure(s) (LRB): RIGHT TOTAL KNEE REPLACEMENT (Right) Surgeon(s): Ramos Phillips (Res) Deacon Estimated body mass index is 29.32 kg/m? as calculated from the following: Height as of this encounter: 180.3 cm (5' 10.98). Weight as of this encounter: 95.3 kg (210 lb 1.6 oz). Most recent hematocrit and potassium results: Hematocrit 44.4 03/07/2018 Potassium 4.5 03/07/2018 ANES DOS/PREOP NOTE: Vitals: 03/20/18 1020 10/10/18 1023 BP: 163/92 Pulse: 76 Resp: 18 Temp: 36.6 ?C (97.9 ?F) SpO2: 95% Weight: 95.3 kg (210 lb 1.6 oz) Height: 180.3 cm (5' 10.98) ACTIVE PROBLEM LIST Degenerative Joint Disease of Knee, Right PAST MEDICAL HISTORY Diagnosis Date - Arthritis - H/O renal cell carcinoma 1997 - Hyperlipemia - Hypertension - Pulmonary embolism (HCC) 1997, 2016 on coumadin - Thyroid disease PAST SURGICAL HISTORY Procedure Laterality Date - LAPAROSCOPIC NEPHRECTOMY Left 1997 - PAST SURGICAL HISTORY OF spot removed from left and right lung - PAST SURGICAL HISTORY OF hernia repair FAMILY HISTORY Problem Relation Age of Onset - Cancer Father lung Social History: Social History Substance Use Topics - Smoking status: Never Smoker - Smokeless tobacco: Never Used - Alcohol use No No current facility-administered medications on file prior to encounter. Current Outpatient Prescriptions on File Prior to Encounter: warfarin (COUMADIN) 5 mg tablet Take 5 mg by mouth daily as directed. 1.5 tues, thrus, sat trospium (SANCTURA) 20 mg tablet Take 20 mg by mouth twice daily. atorvastatin (LIPITOR) 40 mg tablet Take 40 mg by mouth once daily. finasteride (PROSCAR) 5 mg tablet Take 5 mg by mouth once daily. lisinopril 2.5 mg tablet Take 2.5 mg by mouth once daily. tamsulosin ER (FLOMAX) 0.4 mg cap Take 0.4 mg by mouth. levothyroxine sodium (LEVOTHYROXINE ORAL) Take by mouth. Current Facility-Administered Medications: ceFAZolin iv piggyback 2 g in D5W (iso-osmotic) 100 mL (ANCEF) 2 g INTRAVENOUS ONCE Ramos [place] tranexamic acid 1,000 mg in NaCl 0.9% 100 mL (CYKLOKAPRON) 1,000 mg INTRAVENOUS ONCE Ramos [place] tranexamic acid 1,000 mg in NaCl 0.9% 100 mL (CYKLOKAPRON) 1,000 mg INTRAVENOUS ONCE Ramos [place] Allergies: ALLERGIES No Known Allergies DOS EXAM: Adequate NPO Status: Yes Anesthetic Risks, Benefits, Alternatives, Personnel and Consent Discussed: Yes Patient agrees to proceed: Yes Previous Anesthesia: No history of adverse event Airway Assessment: MP 2; Neck ROM: Full ROM without neurologic symptoms; Airway Evaluation: No significant abnormalities Symptoms of Sleep Apnea: Hypertension, Age over 50 (72 year old) and Male gender Dentition: Teeth intact, multiple caps Additional Physical Exam: Lungs: Patient health status unchanged since recent history and physical. See history and physical for exam findings. Cardiac: Patient health status unchanged since recent history and physical. See history and physical for exam findings. Additional Pertinent Findings: N/A Blood Products: Will accept Blood/Blood Products Anesthetic Plan: General , pt refuses spinal. Anesthetic Monitoring: Standard ASA Monitors Pain Management Plan: Parenteral or Oral and Peripheral Nerve Block ASA Class: 3 Other Medical Problems: History of DVT/PE - on coumadin, last dose 1 week prior. History of renal cell carcinoma - mets to lung, s/p lobectomy on right Hypothyroidism Antibody Screen Date Value Ref Range Status 03/07/2018 NEGATIVE Final CBC with diff: WBC 5.65 03/07/2018 RBC 5.23 03/07/2018 HGB 14.9 03/07/2018 Hematocrit 44.4 03/07/2018 MCV 84.9 03/07/2018 MCH 28.5 03/07/2018 MCHC 33.6 03/07/2018 Platelet Count 273 03/07/2018 MPV 9.4 03/07/2018 Chronic Beta Karina medication administered within 24 hours: N/A I have interviewed and examined the patient. I have reviewed the medical record and/or the pre-anesthesia evaluation, pertinent labs, and test results. Significant changes in the patient's condition since the History and Physical, not otherwise documented in primary service progress notes: No This contains updated information obtained within 48 hours of Surgery/Procedure. SIGNATURE: Aden Mayfield MD PATIENT NAME: Andreea Aguilera DATE: March 20, 2018 TIME: 10:23 AM CSN: [id number] [facility] BRIEF OP NOTon 03-20-2018 BRIEF OP NOT HNO ID: [id number] Author: Alan Worthy Service: Orthopaedic Surgery Author Type: Resident Type: Brief Op Note Filed: 03/20/2018 1:05 PM Note Text: TOTAL KNEE ARTHROPLASTY BRIEF OPERATIVE / PROCEDURE NOTE LOG ID: [id number] Surgery/Procedure Date: 03/20/2018 Incision/Procedure Start Time: 11:28 AM Incision Close/Procedure End Time: 12:53 PM Surgeon(s)/Proceduralist(s) and Transition Manager(s): Surgeon(s) and Role: * Ramos North - Primary * Alan Worthy - Resident - Assisting No Additional Staff Procedure(s): Procedure(s) (LRB): RIGHT TOTAL KNEE REPLACEMENT (Right) Anesthesia: General Peripheral Block Type: None Approach: Median parapatellar Findings: severe osteoarthritis Estimated Blood Loss: 200 mls Specimens: None Complications: None Implant: Implant Name Type Inv. Item Serial No. Insurance Agency Manager Lot No. LRB No. Used CEMENT SIMPLEX GENTAMICIN BONE HIGH VISCOSITY 20ML STERILE 40GM - [id number] Cement / Putty CEMENT SIMPLEX GENTAMICIN BONE HIGH VISCOSITY 20ML STERILE 40GM [employer] [id number] Right 1 SCREW PERSONA 2.5MM FEMALE HEXAGON 25MM HEADFRAME KNEE - [id number] Screw SCREW PERSONA 2.5MM FEMALE HEXAGON 25MM HEADFRAME KNEE [employer] Right 6 COMPONENT PERSONA 9 STANDARD COCR FEMORAL CRUCIATE RETAIN - [id number] Joint - Knee COMPONENT PERSONA 9 STANDARD COCR FEMORAL CRUCIATE RETAIN [employer] [id number] Right 1 BASEPLATE PERSONA 5D H TIVANIUM TIBIAL CEMENTED STEM KNEE RIGHT - [id number] Joint BASEPLATE PERSONA 5D H TIVANIUM TIBIAL CEMENTED STEM KNEE RIGHT [employer] [id number] Right 1 XAT-GR-F-KIND IMPLANT - [id number] Implant JDS-HT-Y-KIND IMPLANT [employer] [id number] Right 1 Bearing Surface: Fixed Fixation: Cemented SSI Risk Factors: Obesity, BMI > 35 Constraint: Cruciate Retaining Other: None Pre-Op/Pre-Procedure Diagnosis: Degenerative joint disease of knee, right [M17.11] Post-Op/Post-Procedure Diagnosis: Degenerative joint disease of knee, right [M17.11] Weight Bearing Status: Weight Bearing As Tolerated POST OP PLAN: -Pain control -PT/OT WBAT -DVT ppx: Lovenox 40 BID starting tomorrow, Coumadin 5 mg to start today -Ancef x 2 doses -Aquacel for 7 days -D/c planning SIGNATURE: Alan Worthy MD PATIENT NAME: Andreea Aguilera DATE: March 20, 2018 TIME: 1:03 PM PAGER/CONTACT #: [facility] OPERATIVE NOon 03-20-2018 OPERATIVE NO HNO ID: [id number] Author: Ramos North Service: Orthopaedic Surgery Author Type: Physician Type: Operative Report Filed: 03/21/2018 9:34 AM Note Text: [facility] - Operative Report ANDREEA AGUILERA : 1945 AGE: 72. SEX: M PATIENT TYPE: I HOSP [facility] [place] LOCATION: [id number] ATTENDING PHYSICIAN: RAMOS NORTH CSN NUMBER: [id number] DATE OF SURGERY/PROCEDURE: 03/20/2018 INCISION/PROCEDURE START TIME: 11:28 AM INCISION CLOSE/PROCEDURE END TIME: 12:53 PM PREOPERATIVE DIAGNOSIS: Right knee degenerative joint disease. POSTOPERATIVE DIAGNOSIS: Right knee degenerative joint disease. SURGEON: Ramos North MD PLASTER CASTER: Alan Worthy MD. SURGERY/PROCEDURE: Right total knee arthroplasty, cemented. ANESTHESIA: General plus local. IMPLANTS: Jennifer Persona size 9 standard CR femur, size H tibia, size 12 mm medial congruent polyethylene. SPECIAL MEDICATIONS: The patient received 2 g of Ancef, 1 gram of vancomycin intravenously within 30 minutes of incision. The patient received 1 g of TXA intravenously at incision, 1 g of TXA intravenously at closure. The patient received 30 cc of 0.5% Marcaine with epinephrine at closure as a local anesthetic. HISTORY OF PRESENT ILLNESS: The patient is a 72-year-old male with a history of right knee pain secondary to DJD. After failing nonoperative treatment, I recommend a right total knee arthroplasty. I explained all risks, benefits, complications, and alternatives of right total knee arthroplasty, and the patient elected to proceed. Prior to proceeding, the patient was preoperatively optimized by his primary care physician. DESCRIPTION OF PROCEDURE: The patient was identified in preop holding area. All final questions were answered. Right lower extremity was marked. Preoperative huddle was performed. The patient's family was present. He was taken back to the operating room, moved over onto the OR table. He was sedated and intubated by Anesthesia. They were in charge of his head, neck, and airway throughout the remainder of the case. He was positioned supine on the operating room table. All bony prominences were well padded. A tourniquet was placed in the right upper thigh. His right lower extremity was pre-prepped with alcohol as well as Hibiclens. The right lower extremity was then prepped and draped in sterile orthopedic fashion. Prior to proceeding, a time-out was performed according to [facility] surgical safety standards. Following time-out, Esmarch bandage was used to exsanguinate the right lower extremity. Tourniquet was inflated to 300 mmHg. Incision was marked out of the anterior aspect of the knee along the midline approximately 12 cm in length. Incision was made down through the skin and subcutaneous tissues. Medial parapatellar approach was used for exposure. Attention was first turned to the patella, elected to proceed with a non-replacement patellar arthroplasty with an inside-out lateral release. Following this, knee was flexed to 90 degrees. Femoral canal was entered through the distal femur. Distal femoral cutting guide was placed in the intramedullary canal and distal femur was cut at 7 degrees of valgus. Following this, the femur was sized to a size 9 and the 4-in-1 trial was placed with 3 degrees of external rotation according to the posterior condylar axis. Four cuts were made in sequential fashion. Following this, attention was turned to the proximal tibia. Extramedullary tibial cutting guide was placed referencing a neutral cut with 3 degrees posterior slope with a 2 mm bony resection off the deficient lateral plateau. Gaps were then checked and flexion-extension found to be equal. Medial and lateral menisci removed as were all posterior osteophytes off the femur. The tibia was sized to a size 8 and the trial was provisionally pinned into position. The femoral trial was placed followed by a 12 mm polyethylene trial. Knee was taken through a range of motion. I was pleased with the overall range of motion as well as the balance in flexion and extension. The patella tracked anatomically. Final preparation was done for the femur as well as for the tibial keel. Trial components were removed. Final components were opened. Cement was mixed. Final components were cemented into position with the trial polyethylene. Once the cement was dried, tourniquet was let down. All bleeders were cauterized. 30 cc of 0.5% Marcaine with epinephrine used as local anesthetic. I was still pleased with 12 mm polyethylene. Trial was removed and a final 12 mm medial congruent polyethylene was inserted. The capsule was closed with #2 Ethibond followed by #2 Quill. Subcutaneous layer was closed with 0 Quill followed by 3-0 Monocryl in skin. Finally, Dermabond, Steri-Strips, sterile silver dressing were applied. The patient was awoken from anesthesia and taken to recovery room in stable condition. I was present for all critical portions of this case. Ramos North MD PW:[id number] /[id number] Normal [facility] Protimeon 03-20-2018 INR Coag RelTime (PPP) 1.07 {INR} Normal 0.90-1.30 [place] Comment on above: Result Comment: Note : Reference Range ChangeVitamin K Antagonist (VKA) Therapeutic Range: INR 2 to 3 (Target INRof 2.5)Note: For patients treated with VKA drugs, such as warfarin, theAmerican College of Chest Physicians 2012 Guideline recommends a therapeuticINR range of 2 to 3 (target INR of 2.5). Thisrecommendation includes high-risk patients with antiphospholipidsyndrome with previous arterial or venous thromboembolism,current-generation mechanical or bioprosthetic aortic heartvalve replacement.VKA Therapeutic Range for some Mechanical Valve Replacement:INR 2.5 to 3.5 (Target INR of 3)Note: Patients with mechanical aortic valve replacement andadditional risk factors for thromboembolic events (atrialfibrillation, previous thromboembolism, LV dysfunction,hypercoagulable conditions) or an older generation mechanicalAVR (i.e., ball in-Cage) or any mechanical MVR should havea INR therapeutic range of 2.5 to 3.5 target INR of 3).Matyatt GH, et al. Chest 2012; 141:7S-47SNishimura RA, et al. [facility] 2017; 70: 252-289 Performed By: #### P T ####[place] [address] Prothrombin time (PT) Coag time (PPP) 10.9 s Normal 9.7-13.0 [place] Comment on above: Performed By: #### P T ####[address] [address] Surgical Tissue Examon 03-20 Surgical Tissue Exam Test performed at [address] [address]INGE: ANDREEA AGUILERA [id number] REQUESTING: RAMOS MOULTONDIEGO DIAGNOSIS:RIGHT KNEE, EXCISION - DEGENERATIVE CHANGES CONSISTENT WITHOSTEOARTHRITIS.OPERATIVE PROCEDURE: Arthroplasty replace joint total kneeCLINICAL INFORMATION: Degenerative joint disease of knee, right [M17.11]GROSS DESCRIPTION:Right knee boneReceived in formalin labeled right knee bone are multiple segments ofbone with overlying cartilage aggregating to 18.0 x 8.0 x 2.0 cm. Oneportion is recognizable as a tibial plateau and shows extensiveeburnation along with peripheral osteophyte formation. Separatefragments consistent with femoral condyles also show evidence ofeburnation and osteophyte formation. Attached to the bone are portionsof yellow to white rubbery firm tissue representing possible synoviumand joint capsule. The soft tissue shows white chalky depositsrepresenting possible gout or pseudogout. No other gross abnormalitiesare seen. Boots And Shoes Supervisor sections are submitted in formalin asfollows: 1 - soft tissue; 2 - bone after a period of decalcification.ARH:justin LA M.D., PATHOLOGIST(Electronic signature on file)Signed out: 03/25/2018 12:54PRINTED: 03/25/2018 Page 1 of 1 Normal [place] Comment on above: Performed By: #### P 8 ####[place] [address] THERAPY NT 03-20-2018 THERAPY NT HNO ID: [id number] Author: Leodan (Pt) Jose Alfredo Service: Physical Therapy Author Type: Physical Therapist Type: Therapy (PT/OT/Speech/Resp) Filed: 03/20/2018 4:57 PM Note Text: Physical Therapy Evaluation SERVICE DATE: 03/20/2018 SERVICE TIME: 1550 to 1629 ROOM: [place] [address] Recommended Discharge Disposition: Home PT Anticipated Discharge Needs: Family Training;Physical Assist at Home Physical Assist at Home for: Cleaning;Laundry;Safety;Shop ping;Transportation Recommended Discharge Equipment: No equipment needs anticipated PT Recommendations to Nursing: Ambulate with device;To bathroom;Transfer to/from chair;OOB for Meals;With assist of 1 person Device: Wheeled Walker PT 6 Clicks Score: 17 Precautions/Activity Restrictions: Total Knee Replacement;Weight Bearing Restrictions Extremity With Weight Bearing Restricted: Right Lower Extremity Right Lower Extremity Weight Bearing Status: WBAT ASSESSMENT : Patient presents with the following personal factors and comorbidties that impact current function and ability to progress through a plan of care including: status post total knee arthroplasty, stairs to enter home and to bedroom. Upon examination of body systems physical therapy will be addressing the following systems and elements: musculoskeletal, neuromuscular. Lastly the patient's clinical presentation is evolving (pain and surgical wound) requiring a moderate complexity in clinical decision making for the physical therapy evaluation. Patient expected to be safe for discharge to home when medically stable and after therapy session that include transfer, stair, gait, and family training. Patient Disposition at Start of Session: Supine in Bed;Call Thomas in Reach;Family Present Patient Disposition at End of Session: OOB in Chair;Call Thomas in Reach;Family Present Tolerated Full Session Physical Therapy Problem List: Education Deficit;Edema;Pain;Safety Deficits;Decreased Activity Tolerance;Decreased Range Of Motion;Decreased Strength;Functional Mobility Impairment;Balance Impaired Patient /Caregiver Goals: Go Home Goals for Plan of Care: Transfer supine to/from sit with: Independent Transfer sit to/from stand with: Independent Ambulate with: Independent Distance: 80 Device: Wheeled Walker Ambulate up and down steps with: Supervision Number of steps: 12 Device: Rail;Cane ROM: R knee 0-110 Rehab Potential: Good PLAN: Treatment Frequency (times per week): BID Current admission Treatment Interventions: Education;Self Care / Home Management;Energy Conservation Training;Joint Mobility;Strengthening;Funct ional Mobility Training;Balance Training;Neuromuscular Re-education;Edema Management;Pain Management Plan of Care developed with: Patient;Family TREATMENT INTERVENTIONS: Therapy Diagnosis: Reduced mobility-other;Muscle Weakness (generalized);Unsteadiness on feet;Abnormalities of gait and mobility-other;Difficulty walking-musculoskeletal Interventions Provided: Evaluation;Therapeutic Activity (30660);Therapeutic Exercise (42289) $ Evaluation-Moderate (66611) Billed Units: 1 unit Therapeutic Exercise (86917) Treatment Minutes: 8 1 unit Skilled Intervention(s): Patient completed right total knee arthroplasty protocol (ankle pump, quad set, gluteal set, heel slide, hip abd/add, straight leg raise, short arc quad, long arc quad) x 10 reps with minimal amount of assist for SLR. Patient demonstrated fair quad control with exercises. Patient demonstrates 10-90 of ROM to right knee. Patient reports 0.5/10 pain. Ice applied to surgical knee and elevated on pillow and/or with foot chair, right lower extremity elevated on folded blankets. Therapeutic Activity (86476) Treatment Minutes: 15 1 unit Skilled Intervention(s): Instructed patient in supine to sit pushing with upper extremities to sit up. Instructed patient in sit to supine using safe, effective technique. Instruction in sit to stand technique with proper hand placement and body positioning at edge of bed/chair. Instruction in stand to sit technique with lower extremities touching chair/bed and reaching back for surface, verbal cue reinforcement with each sit -> stand transfer. Instruction on toilet transfers including use of grab bar and placement of surgical right lower extremity. Education with PT role in hospital and plan of care, physiological benefits of upright sitting in chair vs bed, benefits of anti-embolics and exercise prescription to perform periodically throughout hospitalization, disease process AND weight bearing restrictions, mobility safety including proper placement of body/feet with use of front wheeled walker for safe ambulation to decrease fall risk. Total Timed Code Treatment Minutes: 23 Total Treatment Time (minutes): 38 FUNCTIONAL G CODE: PT 6 Clicks Score: 17 (03/20/18 154) Mobility: Walking and Moving Around Current Status (G8978): CK (03/20/18 154) Mobility: Walking and Moving Around Goal Status (G8979): CI (03/20/181548) Based on clinical assessment and the score on the 6 Clicks Functional Assessment Tool, the G code and corresponding severity modifiers are documented above. SUBJECTIVE: Current Hospital Course: Chart reviewed; History of degenerative joint disease of right knee, total knee arthroplasty earlier today (03/20/2018). Lab values and vital signs not significant to PT session today. Reason for Physical Therapy Consult : R TKA post surgical care Relevant Past Medical History: OA R knee, PE, HTN Active Hospital Problems Diagnosis - Degenerative joint disease of knee, right Added automatically from request for surgery [id number] - Knee osteoarthritis PAST MEDICAL HISTORY Diagnosis Date - Arthritis - H/O renal cell carcinoma 1997 - Hyperlipemia - Hypertension - Pulmonary embolism (HCC) 1997, 2016 on coumadin - Thyroid disease PAST SURGICAL HISTORY Procedure Laterality Date - LAPAROSCOPIC NEPHRECTOMY Left 1997 - PAST SURGICAL HISTORY OF spot removed from left and right lung - PAST SURGICAL HISTORY OF hernia repair Patient Report: Identification verified x2, patient agreeable to therapy. Spouse and 2 sons present. Patient ready to get up and go to the bathroom. Home Environment Patient Lives With: Spouse Assistance Available: 24 Hour (sons live next door) Entry To Home: Stairs;Without Rail Number Of Stairs Into Home: 2 Number Of Stairs To Bed/Bath: 12 Stairs to Bed/Bath with: Unilateral Rail Equipment Owned: Cane;Wheeled Walker Prior Functional Level: Within Functional Limits Prior Functional Level Comments: Ambulated with cane outside of home 2/2 knee pain OBJECTIVE: Range of Motion: ROM Limitation Comments ROM Limitation Comments: R knee 5-90 Strength: WFL Except;Strength Limitation Comments Strength Limitation Comments: R knee flex/ext 3-/5; R hip flex 3-/5 CURRENT FUNCTIONAL STATUS: Current Functional Mobility Assist Level Additional Information Rolling Supine to Sit Minimal Assistance Sit to Supine Scooting Sit to Stand Minimal Assistance Stand to Sit Bed to Chair Toilet/Commode Gait Contact Guard Assistance Gait Device: Wheeled Walker Gait Distance (feet): 15, 25 Stairs Curb Step Car Transfer Gait Deviations Right Lower Extremity: Weight bearing decreased;Heel strike during initial stance decreased;Push-off during terminal stance decreased General Gait Deviations: Ruby decreased;Step length decreased;Flexed trunk posture;Non-functional gait speed Balance: Static Standing;Dynamic Standing Static Standing Balance: (fair+) Dynamic Standing Balance: Minimal Assistance Activity Tolerance: Standing Activity Standing Activity: static + ambulation Standing Activity Tolerance (in minutes): 4 Please see discipline specific clinical documentation flowsheet for complete details for this therapy evaluation/treatment. SIGNATURE: Leodan Veliz PT PATIENT NAME: Andreea Aguilera DATE: March 20, 2018 TIME: 4:48 PM Normal [facility] Basic Panelon 03-07-2018 Creatinine mass conc 0.93 mg/dL Normal 0.67-1.17 [place] Comment on above: Performed By: #### P 8 ####[place] [address] Anion gap 3 molar conc 14 mmol/L Normal 8-16 [place] Comment on above: Performed By: #### P 8 ####[place] [id number] CO2 molar conc 26 mmol/L Normal 21-32 [place] Comment on above: Performed By: #### P 8 ####[facility] [place], [place] [address] Glucose mass conc 101 mg/dL High 70-99 [place] Comment on above: Performed By: #### P 8 ####[facility] [place], [place] [address] Urea nitrogen mass conc 14 mg/dL Normal 7-18 [place] Comment on above: Performed By: #### P 8 ####[facility] [place], [place] [address] Calcium mass conc 9.3 mg/dL Normal 8.5-10.1 [place] Comment on above: Performed By: #### P 8 ####[facility] [place], [place] [address] Chloride molar conc 104 mmol/L Normal 98-107 [place] Comment on above: Performed By: #### P 8 ####[facility] [place], [place] [address] Potassium molar conc 4.5 mmol/L Normal 3.5-5.1 [place] Comment on above: Performed By: #### P 8 ####[address] [address] Sodium molar conc 139 mmol/L Normal 136-145 [place] Comment on above: Performed By: #### P 8 ####[address] [address] CNCNPATEDon 03-07-2018 CNCNPATED Education (AK52B) ANDREEA AGUILERA ([id number]) 1945 M Date Time Provider Department 03/07/18 LOU MONREAL) AK52B Reason for Visit: Pre-Op Teaching [134] Cmt: Joint camp Visit Notes: >> Lou Monreal Yessi Mar 07, 2018 11:16 AM Status: Signed TOTAL JOINT COMPLETE CARE PROGRAM ORTHOPAEDIC TOTAL JOINT CLASS Service Date: 03/07/2018 Service Time: 999 Andreea Aguilera is scheduled for knee replacement on 03/20. He did attend the pre-op joint replacement class. Issues Reviewed: n/a Education Topic/Teaching Points: Day of surgery arrival instructions (including phone number to call for arrival time) Pre-op skin wipes Hospital course: -TCI area, operating room, recovery room -Anesthesia: Spinal vs general -Pain control: Nerve block, epidural, oral medications, AND IV medications -DVT prophylaxis ASA, Lovenox, Coumadin Post-op dressings Showering instructions Aquacell dressing to be removed 7 days post op Incision care: [place] vs dissolvable sutures with glue Signs AND symptoms of infection Signs AND symptoms of DVT Home physical therapy Home pain medications: Refill protocol and side effects Pain management: Ice, elevation of extremity and pain meds Care Management Discharge plan Discuss with family/friends about assistance after discharge from the hospital SNF (Residential Facility) Rehab nurse will contact prior to admission to discuss post-op needs and home therapy vs SNF transition manager/psychiatric social worker supervisor in hospital final arrangements for discharge Physical and occupational therapy while in the hospital Getting your home ready What to bring to the hospital Preparing yourself for surgery: Dentist, stop smoking Diet Exercises: Circulation exercises Adaptive equipment Hip and knee precautions SIGNATURE: Lou Monreal RN PATIENT NAME: Andreea Aguilera DATE: March 07, 2018 TIME: 11:16 AM PAGER/CONTACT #: [id number] During your visit today, we recorded the following information about you: Allergies As of Date: 03/07/2018 (No Known Allergies) Date Reviewed: 02/01/2018 Reviewed by: Jeane Stoddard - Fully Assessed Prescriptions as of 03/07/2018 Sig: WARFARIN 5 MG TABLET Take 5 mg by mouth daily as d* TROSPIUM 20 MG TABLET Take 20 mg by mouth twice tha* ATORVASTATIN 40 MG TABLET Take 40 mg by mouth once nya* FINASTERIDE 5 MG TABLET Take 5 mg by mouth once daily. LISINOPRIL 2.5 MG TABLET Take 2.5 mg by mouth once tha* TAMSULOSIN 0.4 MG CAPSULE Take 0.4 mg by mouth. LEVOTHYROXINE ORAL Take by mouth. Encounter Status:Closed by LOU MONREAL RN on 03/07/18 Normal [facility] HISTORY PHYSICALon HISTORY PHYSICAL HNO ID: [id number] Author: Caitlin Carter (Kimberlee) Manuel Service: (none) Author Type: Nurse Practitioner Type: HANDP Filed: 03/07/2018 1:34 PM Note Text: HISTORY AND PHYSICAL EXAMINATION SERVICE DATE: 03/07/2018 SERVICE TIME: 11:51 AM PRIMARY CARE PHYSICIAN: No primary care provider on file. The patient has the following: ACTIVE PROBLEM LIST Degenerative Joint Disease of Knee, Right Subjective CHIEF COMPLAINT: Right knee pain HPI: This is a 72 year old male c/o above x a few years ago. Pt co right knee pain 4-5/10 described as a constant ache. Pain is worse with walking, better with rest and elevation. Pt states he does use asper cream for pain relief. Pt denies any radiation of pain. Denies numbness/tingling in right leg. Pt had injections in the past, which he states didn't really help him. Most recent xrays done january 2018, see results in epic. Discussed risks and benefits with surgeon and agrees to surgical intervention. PAST MEDICAL HISTORY Diagnosis Date - Arthritis - H/O renal cell carcinoma 1997 - Hyperlipemia - Hypertension - Pulmonary embolism (HCC) 1997, 2016 on coumadin - Thyroid disease PAST SURGICAL HISTORY Procedure Laterality Date - LAPAROSCOPIC NEPHRECTOMY Left 1997 - PAST SURGICAL HISTORY OF spot removed from left and right lung - PAST SURGICAL HISTORY OF hernia repair FAMILY HISTORY Problem Relation Age of Onset - Cancer Father lung SOCIAL HISTORY: Social History Marital status: Spouse name: Years of education: Number of children: Social History Main Topics Smoking status: Never Smoker Smokeless tobacco: Never Used Alcohol use: No Drug use: No Prior to Admission medications as of 03/07/18 1303 Medication Sig Last Dose Taking mirabegron (MYRBETRIQ) 25 mg Tb24 Take 25 mg by mouth once daily. Taking Yes amlodipine besylate (AMLODIPINE ORAL) Take 10 mg by mouth once daily. Taking Yes Ascorbic Acid (VITAMIN C) 100 mg tablet Take 100 mg by mouth once daily. Taking Yes ergocalciferol, vitamin D2, (VITAMIN D2 ORAL) Take 1 tablet by mouth once daily. Taking Yes warfarin (COUMADIN) 5 mg tablet Take 5 mg by mouth daily as directed. 1.5 tues, thrus, sat Taking Yes atorvastatin (LIPITOR) 40 mg tablet Take 40 mg by mouth once daily. Taking Yes finasteride (PROSCAR) 5 mg tablet Take 5 mg by mouth once daily. Taking Yes lisinopril 2.5 mg tablet Take 2.5 mg by mouth once daily. Taking Yes tamsulosin ER (FLOMAX) 0.4 mg cap Take 0.4 mg by mouth. Taking Yes levothyroxine sodium (LEVOTHYROXINE ORAL) Take by mouth. Taking Yes trospium (SANCTURA) 20 mg tablet Take 20 mg by mouth twice daily. Not Taking No medication comments found. ALLERGIES No Known Allergies REVIEW OF SYSTEMS: PAIN ASSESSMENT: Pain Pain Score: 4/10 Pain Location: Knee-Right Description: Aching Frequency: Continuous Intervention: (aspercream) General: Denies fever, chills, and unexpected weight change. Neuro: Denies dizziness and headaches. Respiratory: Denies SOB .+ cough - nonproductive Cardiovascular: Denies CP and palpitations. GI: Denies abd pain and N/V/D. : Denies dysuria and frequency. Endocrine: No history of diabetes. Hematology: . + coumadin use Musculoskeletal: +right knee pain, see hpi Skin: Denies open sores and rashes. Objective PHYSICAL EXAM: VITALS: BP 143/87 Pulse 98 Temp 98.2 Resp 18 Ht 5' 11 (1.80m) Wt 210 lb (95.3kg) SpO2 93% BMI 29.30 kg/(m2). General: NAD. Cooperative. Skin: Skin is warm, no rashes, and no open sores. HEENT: Normocephalic. Cardiovascular: Normal S1 AND S2. No murmur. Lungs: CTA. No respiratory distress. Abdomen: Soft. Extremities: No edema. Neurological: Alert and oriented to person, place, and time. Pulses: radial pulses +2 Assessment/Plan Degenerative joint disease of knee, right Patient has the following medical conditions which may affect steffi-operative course Hx of PE- currently on coumadin METS: Climb a flight of stairs or walk up a hill (5.50 METs) Patient denies any chest pain or undue shortness of breath with the above physical activity. ANESTHESIA FINDINGS: Intubation History: No history of difficult intubation Significant Anesthesia Considerations: None PLAN Planned Procedure: ARTHROPLASTY REPLACE JOINT TOTAL KNEE The Following Tests/Procedures Have Been Initiated: T/s,cbc,bmp,mrsa nasal swab Consults: pt states he had to see the dentist for clearance for surgery. Pt states he also saw pcp for clearance Planned Anesthetic: General Instructions Given to Patient: Patient given verbal and written preop instructions and voices comprehension and compliance. SIGNATURE: Caitlin Jackson APRN.CNP PATIENT NAME: Andreea Aguilera DATE: March 07, 2018 TIME: 11:51 AM PAGER/CONTACT #: Normal [facility] Hemogramon 03-07-2018 Erythrocyte distribution width Auto Ratio (RBC) 13.9 % Normal 11.6-14.4 [place] Comment on above: Performed By: #### C BC1 ####[place] [address] Hematocrit Auto Volume Fraction (Bld) 44.4 % Normal 40.1-51.0 [place] Comment on above: Performed By: #### C BC1 ####[place] [address] Hemoglobin mass conc (Bld) 14.9 g/dL Normal 13.7-17.5 [place] Comment on above: Performed By: #### C BC1 ####[place] [address] MCH Auto Entitic mass (RBC) 28.5 pg Normal 25.7-32.2 [place] Comment on above: Performed By: #### C BC1 ####[place] [address] MCHC Auto mass conc (RBC) 33.6 % Normal 32.3-36.5 [place] Comment on above: Performed By: #### C BC1 ####[place] [address] MCV Auto Entitic volume (RBC) 84.9 fL Normal 83.2-95.6 [place] Comment on above: Performed By: #### C BC1 ####[place] [address] Platelet mean volume Auto Entitic volume (Bld) 9.4 fL Normal 8.7-12.0 [place] Comment on above: Performed By: #### C BC1 ####[facility] [place], [place] [address] Platelets Auto #/vol (Bld) 273 thou/cmm Normal 141-365 [place] Comment on above: Performed By: #### C BC1 ####[address] [address] RBC Auto #/vol (Bld) 5.23 mil/cmm Normal 4.63-6.08 [place] Comment on above: Performed By: #### C BC1 ####[address] [address] RDW SD 43.0 fl Normal 36.1-45.8 [place] Comment on above: Performed By: #### C BC1 ####[address] [address] WBC Auto #/vol (Bld) 5.65 thou/cmm Normal 4.23-9.07 [place] Comment on above: Performed By: #### C BC1 ####[address] [address] MDRD GFRon 03-07-2018 GFR/1.73 sq M predicted among non-blacks MDRD vol rate/area (S/P/Bld) mL/min/{1.73_m2} Normal >60mL/min/1. 73m2 [place] Comment on above: Result Comment: If t he patient is , multiply the result by 1.210. Performed By: #### G FR ####[address] [address] MRSA/MSSA Screenon 8 MRSA/MSSA Screen Test performed at [facility] No Staph aureus or MRSA detected. Normal [place] Comment on above: Performed By: #### P STSS ####[address] [address] Type and Screenon 03-07-2018 ABO group Nom (Bld) A Normal [place] Comment on above: Performed By: #### T &S ####[facility] [place], [place] [address] Comment PAT specimen [facility] Comment on above: Performed By: #### T &S ####[facility] [place] [address] RH Type Positive [facility] Comment on above: Performed By: #### T &S ####[facility] [place] [id number] PROGRESSon 03-06-2018 Protein mass conc HNO ID: [id number] Author: Nimo (Rn) CASSIDY Machuca Service: Nursing Author Type: Registered Nurse Type: Progress Notes Filed: 03/06/2018 10:45 AM Note Text: Pt to call surgeon to see when to hold coumadin for surgery. [facility] CNPNon 02-26-2018 CNPN Telephone ([id number]) ANDREEA AGUILERA ([id number]) 1945 M Date Time Provider Department 02/26/18 LOU MONREAL (RN) [id number] During your visit today, we recorded the following information about you: Lou Monreal RN 02/26/2018 2:35 PM Signed ORTHOPAEDIC COORDINATION OF CARE Discharge Disposition (Planned): Home with Home Health Care Discharge Transportation: Car Number of Entry Steps: 2 Bedroom Location: Second floor Bathroom Location: 1st and 2nd Caregiver Assistance: Consistent/Live-In (5-7 days/wk) Home Location: n/a Stair Mobility: Greater than 3 stairs Bundle Inclusion: Yes SIGNATURE: Lou Monreal RN DATE: February 26, 2018 TIME: 2:34 PM Patient plans discharge home with [facility], to be there to assist and has 2 kids that live next door. He lives in a 2 story home, bedroom on 2nd floor, however, he also has a bed on 1st. Bathroom on 1st and 2nd, only 2 small steps to enter the home. He has a cane/ww, plans to attend the joint camp on 03/07. I will follow post op. Allergies As of Date: 02/26/2018 (No Known Allergies) Date Reviewed: 02/01/2018 Reviewed by: [facility]ane [facility]) Richi - Fully Assessed Reason for Visit: PreOp Call [[id number]] Prescriptions as of 02/26/2018 Sig: WARFARIN 5 MG TABLET Take 5 mg by mouth daily as d* TROSPIUM 20 MG TABLET Take 20 mg by mouth twice tha* ATORVASTATIN 40 MG TABLET Take 40 mg by mouth once nya* FINASTERIDE 5 MG TABLET Take 5 mg by mouth once daily. LISINOPRIL 2.5 MG TABLET Take 2.5 mg by mouth once tha* TAMSULOSIN 0.4 MG CAPSULE Take 0.4 mg by mouth. LEVOTHYROXINE ORAL Take by mouth. Problem List As Of Date 02/26/2018 Noted Resolved Degenerative joint disease of knee, right [M17.*INVALID FOR* More... Encounter Status:Closed by LOU MONREAL RN on 02/26/18 [facility] HOSPon 02-04-2018 HOSP Patient:Marylin Agu[address] rd A MRN: Height:5' 11(1.803 m) Weight:210 lb (95.255 kg) Outpatient Medications as of 03/20/18: mirabegron (MYRBETRIQ) 25 mg Tb24 amlodipine besylate (AMLODIPINE ORAL) Ascorbic Acid (VITAMIN C) 100 mg tablet ergocalciferol, vitamin D2, (VITAMIN D2 ORAL) warfarin (COUMADIN) 5 mg tablet trospium (SANCTURA) 20 mg tablet atorvastatin (LIPITOR) 40 mg tablet finasteride (PROSCAR) 5 mg tablet lisinopril 2.5 mg tablet tamsulosin ER (FLOMAX) 0.4 mg cap levothyroxine sodium (LEVOTHYROXINE ORAL) Admission/Clinic Administered Medications as of 03/20/18: ceFAZolin iv piggyback 2 g in D5W (iso-osmotic) 100 mL (ANCEF) tranexamic acid 1,000 mg in NaCl 0.9% 100 mL (CYKLOKAPRON) tranexamic acid 1,000 mg in NaCl 0.9% 100 mL (CYKLOKAPRON) lactated ringers infusion fentaNYL 50 mcg/mL 50 mcg injection (SUBLIMAZE) HYDROmorphone 0.5 mg injection (DILAUDID) ondansetron (PF) 4 mg injection (ZOFRAN) meperidine (PF) 12.5 mg injection (DEMEROL) vancomycin iv piggyback 1 g in D5W 200 mL (VANCOCIN) Problem List: Degenerative joint disease of knee, right [M17.11] Allergies: No Known Allergies Date Verified:03/20/18 Lab Values Lab Value Units Date High Low POTA* 4.5 mEq/L 03/07/2018 5.1 3.5 SIMONE* 44.4 % 03/07/2018 51.0 40.1 Progress Notes (VANE [facility]MAYANK [address]): Ursula Griffin 02/27/2018 10:15 AM Signed IN PATIENT [facility] 3 DAYS Testing/Procedure Name: RIGHT TOTAL KNEE REPLACEMENT Testing/Procedure Date: 03/18/18 Diagnosis code: M1711 CPT code (if applicable): 82828 Medical reason details for testing/procdeure: PAIN Insurance Company contacted: [facility] Insurance contact name: [place] Insurance contact phone: [phone] Authorization: Approved Authorization number: [id number] Approval valid date range: 01/08/18 THRU 07/11/18 Number of Days/Visits approved: 1 Authorization information provided to SEC Ursula Griffin February 27, 2018 10:10 AM Progress Notes ([place] 5200B ORTHOPEDIC): Lou Monreal RN 02/26/2018 2:35 PM Signed ORTHOPAEDIC COORDINATION OF CARE Discharge Disposition (Planned): Home with Home Health Care Discharge Transportation: Car Number of Entry Steps: 2 Bedroom Location: Second floor Bathroom Location: 1st and 2nd Caregiver Assistance: Consistent/Live-In (5-7 days/wk) Home Location: n/a Stair Mobility: Greater than 3 stairs Bundle Inclusion: Yes SIGNATURE: Lou Monreal RN DATE: February 26, 2018 TIME: 2:34 PM Patient plans discharge home with [facility], to be there to assist and has 2 kids that live next door. He lives in a 2 story home, bedroom on 2nd floor, however, he also has a bed on 1st. Bathroom on 1st and 2nd, only 2 small steps to enter the home. He has a cane/ww, plans to attend the joint camp on 03/07. I will follow post op. Normal [facility] PROGRESSon 02-04-2018 Protein mass conc HNO ID: [id number] Author: Ramos North Service: (none) Author Type: Physician Type: Progress Notes Filed: 02/04/2018 12:53 PM Note Text: Patient ID: Andreea Aguilera is a 72 year old male. CC: Consultation requested by No primary care provider on file. for evaluation of: Patient presents with: Right Knee Pain HPI: Andreea Aguilera is a 72 year old male who presents with a long history of activity-related Right knee pain. The patient denies specific injury or acute precipitating event. The pain is described as dull aching and sharp shooting pain and is present in thelateral regions of the knee. The patient does not require ambulatory aids. The patient does have difficulty ascending and descending stairs as well as getting out of a chair. The pain is to the point where it is adversely affecting activities of daily living. Previous treatment has consisted of injections, nsaids The patient is referred for orthopedic evaluation and management. Pain Assessment The following portions of the patient's history were reviewed and updated as appropriate: allergies, current medications, past family history, past medical history, past social history, past surgical history and problem list. PAST MEDICAL HISTORY Diagnosis Date - H/O renal cell carcinoma 1997 - Pulmonary embolism (HCC) 1997, 2016 PAST SURGICAL HISTORY Procedure Laterality Date - LAPAROSCOPIC NEPHRECTOMY Left 1997 ROS No family history on file. Social History Marital status: Spouse name: Years of education: Number of children: Social History Main Topics Drug use: Unknown Current Outpatient Prescriptions: warfarin (COUMADIN) 5 mg tablet Take 5 mg by mouth daily as directed. Disp: Rfl: trospium (SANCTURA) 20 mg tablet Take 20 mg by mouth twice daily. Disp: Rfl: atorvastatin (LIPITOR) 40 mg tablet Take 40 mg by mouth once daily. Disp: Rfl: finasteride (PROSCAR) 5 mg tablet Take 5 mg by mouth once daily. Disp: Rfl: lisinopril 2.5 mg tablet Take 2.5 mg by mouth once daily. Disp: Rfl: tamsulosin ER (FLOMAX) 0.4 mg cap Take 0.4 mg by mouth. Disp: Rfl: levothyroxine sodium (LEVOTHYROXINE ORAL) Take by mouth. Disp: Rfl: No current facility-administered medications for this visit. ALLERGIES No Known Allergies There is no problem list on file for this patient. Objective: On physical examination, the patient is a well appearing male in no respiratory distress. The patient is awake, alert and oriented to person, place and time. Body mass index is 28.48 kg/m?. Examination of the patient?s gait finds it to be antalgic, steady, and well balanced. Inspection of the bilateral lower extremities does not demonstrate color, temperature or trophic changes. There is satisfactory alignment and no asymmetry. Examination of theRight knee finds mild intra-articular effusion. There is valgus deformity. The skin is noted to be intact. There is no lymphadenopathy. There is tenderness to palpation in the lateral portion of the knee Range of motion is 0-120 degrees. There is satisfactory varus/valgus stability. There is no midflexion instability. Leidy test is negative. There is no calf tenderness. There is no evidence of distal neurovascular compromise. Examination of the Left knee finds mild intra-articular effusion. There is no varus deformity. The skin is noted to be intact. There is no lymphadenopathy. There is no tenderness to palpation in the medial and lateral portion of the knee Range of motion is 0-120 degrees. There is satisfactory varus/valgus stability. There is no midflexion instability. Leidy test is negative. There is no calf tenderness. There is no evidence of distal neurovascular compromise. Examination of the bilateral hips exhibits physiologic range of motion without difficulty, equal leg lengths, no pain with resisted hip flexion and no tenderness to palpation over greater trochanters. Further examination of the bilateral lower extremities finds satisfactory ankle dorsiflexion and plantar flexion strength. Sensation is intact to light touch distally. Distal pulses are palpable. The feet are warm and viable and there is brisk capillary refill. [place] Knee Score: see report Radiographs: Radiographs are reviewed from office today to include right and left knee PA flexion, lateral and Merchant views. Per my interpretation, these show bilateral valgus with bone on bone DJD of the right knee latearl compartment Assessment: The encounter diagnosis was Primary osteoarthritis of right knee. Plan: The clinical and radiographic findings as well as a risks, benefits and alternatives of treatment have been reviewed in detail with the patient. The patient understands the diagnosis, treatment options both operative and non-operative, their associated risks, complications, benefits and failures and wishes to proceed with surgical intervention. The patient's ADL's have become more difficult including but not limited to decrease ability to ambulate.? The patient reports their quality of life has decreased.? The surgery the patient wishes to proceed with is a right TKA.? Prior to surgery it was recommended for the patient to be seen by their PCP for surgical optimization.? In addition they will obtain dental clearance if they have not seen their dentist in the previous 6 months. They understand that surgery cannot be guaranteed to relieve all the symptoms and there is a small but unlikely chance that the symptoms could be worse rather than better. They understands the risks as significant as can occur, including but no limited to the additional risks of loss of limb, infection, deep venous thrombosis, pulmonary embolism, failure of this procedure, wound healing problems, neurovascular injury, continued pain, weakened and muscle atrophy, reflex sympathetic dystrophy and scarring and stiffness. They understand, all questions were answered, and the patient has been provided an informed consent. It was recommended to the patient to do prehab physical therapy, attend our hospital sponsored joint camp, and to stop herbal supplements prior to surgery. Post hospital care and rehabilitation plan was discussed. Patient verbalized understanding and an educational materials were provided. He is going to stop his coumadin 5 days prior to surgery. The patient will return in after surgery to assess their response to the above treatment plan, sooner if there are questions or problems. Normal [facility] CNOVon 02-01-2018 CNOV Office Visit (AGHWG1 ) ANDREEA AGUILERA ([id number]) 1945 M Date Time Provider Department 02/01/18 10:30 AM RAMOS NORTH AGHWG1 During your visit today, we recorded the following information about you: Respiration Weight Height 16/minute 95.3 kg 1.829 m Jeane Stoddard CMA 02/04/2018 12:53 PM Signed REVIEW OF SYSTEMS: GENERAL: Well developed, well nourished. No acute distress PAIN: Pain right knee CARDIOVASCULAR: Negative for chest pain, leg swelling and palpations. MSK: joint pain right knee SKIN: Negative for lesions, rash, itching, metal sensitivity NEURO: Negative for seizure, trauma, numbness/tingling of extremities. ENDOCRINE: Negative for Diabetes Type 1 and Type 2 HEMATOLOGY: Clots Hx of PE in 1997, 2016 after surgery. and On warfarin 5 mg Ramos North MD 02/04/2018 12:53 PM Signed Patient ID: Andreea Aguilera is a 72 year old male. CC: Consultation requested by No primary care provider on file. for evaluation of: Patient presents with: Right Knee Pain HPI: Andreea Aguilera is a 72 year old male who presents with a long history of activity-related Right knee pain. The patient denies specific injury or acute precipitating event. The pain is described as dull aching and sharp shooting pain and is present in thelateral regions of the knee. The patient does not require ambulatory aids. The patient does have difficulty ascending and descending stairs as well as getting out of a chair. The pain is to the point where it is adversely affecting activities of daily living. Previous treatment has consisted of injections, nsaids The patient is referred for orthopedic evaluation and management. Pain Assessment The following portions of the patient's history were reviewed and updated as appropriate: allergies, current medications, past family history, past medical history, past social history, past surgical history and problem list. PAST MEDICAL HISTORY Diagnosis Date - H/O renal cell carcinoma 1997 - Pulmonary embolism (HCC) 1997, 2016 PAST SURGICAL HISTORY Procedure Laterality Date - LAPAROSCOPIC NEPHRECTOMY Left 1997 ROS No family history on file. Social History Marital status: Spouse name: Years of education: Number of children: Social History Main Topics Drug use: Unknown Current Outpatient Prescriptions: warfarin (COUMADIN) 5 mg tablet Take 5 mg by mouth daily as directed. Disp: Rfl: trospium (SANCTURA) 20 mg tablet Take 20 mg by mouth twice daily. Disp: Rfl: atorvastatin (LIPITOR) 40 mg tablet Take 40 mg by mouth once daily. Disp: Rfl: finasteride (PROSCAR) 5 mg tablet Take 5 mg by mouth once daily. Disp: Rfl: lisinopril 2.5 mg tablet Take 2.5 mg by mouth once daily. Disp: Rfl: tamsulosin ER (FLOMAX) 0.4 mg cap Take 0.4 mg by mouth. Disp: Rfl: levothyroxine sodium (LEVOTHYROXINE ORAL) Take by mouth. Disp: Rfl: No current facility-administered medications for this visit. ALLERGIES No Known Allergies There is no problem list on file for this patient. Objective: On physical examination, the patient is a well appearing male in no respiratory distress. The patient is awake, alert and oriented to person, place and time. Body mass index is 28.48 kg/m?. Examination of the patient?s gait finds it to be antalgic, steady, and well balanced. Inspection of the bilateral lower extremities does not demonstrate color, temperature or trophic changes. There is satisfactory alignment and no asymmetry. Examination of theRight knee finds mild intra-articular effusion. There is valgus deformity. The skin is noted to be intact. There is no lymphadenopathy. There is tenderness to palpation in the lateral portion of the knee Range of motion is 0-120 degrees. There is satisfactory varus/valgus stability. There is no midflexion instability. Leidy test is negative. There is no calf tenderness. There is no evidence of distal neurovascular compromise. Examination of the Left knee finds mild intra-articular effusion. There is no varus deformity. The skin is noted to be intact. There is no lymphadenopathy. There is no tenderness to palpation in the medial and lateral portion of the knee Range of motion is 0-120 degrees. There is satisfactory varus/valgus stability. There is no midflexion instability. Leidy test is negative. There is no calf tenderness. There is no evidence of distal neurovascular compromise. Examination of the bilateral hips exhibits physiologic range of motion without difficulty, equal leg lengths, no pain with resisted hip flexion and no tenderness to palpation over greater trochanters. Further examination of the bilateral lower extremities finds satisfactory ankle dorsiflexion and plantar flexion strength. Sensation is intact to light touch distally. Distal pulses are palpable. The feet are warm and viable and there is brisk capillary refill. [place] Knee Score: see report Radiographs: Radiographs are reviewed from office today to include right and left knee PA flexion, lateral and Merchant views. Per my interpretation, these show bilateral valgus with bone on bone DJD of the right knee latearl compartment Assessment: The encounter diagnosis was Primary osteoarthritis of right knee. Plan: The clinical and radiographic findings as well as a risks, benefits and alternatives of treatment have been reviewed in detail with the patient. The patient understands the diagnosis, treatment options both operative and non-operative, their associated risks, complications, benefits and failures and wishes to proceed with surgical intervention. The patient's ADL's have become more difficult including but not limited to decrease ability to ambulate.? The patient reports their quality of life has decreased.? The surgery the patient wishes to proceed with is a right TKA.? Prior to surgery it was recommended for the patient to be seen by their PCP for surgical optimization.? In addition they will obtain dental clearance if they have not seen their dentist in the previous 6 months. They understand that surgery cannot be guaranteed to relieve all the symptoms and there is a small but unlikely chance that the symptoms could be worse rather than better. They understands the risks as significant as can occur, including but no limited to the additional risks of loss of limb, infection, deep venous thrombosis, pulmonary embolism, failure of this procedure, wound healing problems, neurovascular injury, continued pain, weakened and muscle atrophy, reflex sympathetic dystrophy and scarring and stiffness. They understand, all questions were answered, and the patient has been provided an informed consent. It was recommended to the patient to do prehab physical therapy, attend our hospital sponsored joint camp, and to stop herbal supplements prior to surgery. Post hospital care and rehabilitation plan was discussed. Patient verbalized understanding and an educational materials were provided. He is going to stop his coumadin 5 days prior to surgery. The patient will return in after surgery to assess their response to the above treatment plan, sooner if there are questions or problems. Referring Provider: [facility] [[id number]] Allergies As of Date: 02/01/2018 (No Known Allergies) Date Reviewed: 02/01/2018 Reviewed by: Jeane BanerjeeEndless Mountains Health SystemsChica Stoddard - Fully Assessed Reason for Visit: Right Knee Pain [1209] Primary Visit Diagnosis:Primary osteoarthritis of right knee [M17.11] Order(s):XR KNEE POST OP 3V AP/LAT/ RT [[id number]] Order #: [id number] Prescriptions as of 02/01/2018 Sig: WARFARIN 5 MG TABLET Take 5 mg by mouth daily as d* TROSPIUM 20 MG TABLET Take 20 mg by mouth twice tha* ATORVASTATIN 40 MG TABLET Take 40 mg by mouth once nya* FINASTERIDE 5 MG TABLET Take 5 mg by mouth once daily. LISINOPRIL 2.5 MG TABLET Take 2.5 mg by mouth once tha* TAMSULOSIN 0.4 MG CAPSULE Take 0.4 mg by mouth. LEVOTHYROXINE ORAL Take by mouth. Problem List As Of Date: 02/01/2018 (None) Encounter Status:Closed by RAMOS NORTH MD on 02/04/18 [facility] PROGRESSon 02-01-2018 Protein mass conc HNO ID: [id number] Author: Jeane Sharma) Richi Service: (none) Author Type: [employer] Type: Progress Notes Filed: 02/04/2018 12:53 PM Note Text: REVIEW OF SYSTEMS: GENERAL: Well developed, well nourished. No acute distress PAIN: Pain right knee CARDIOVASCULAR: Negative for chest pain, leg swelling and palpations. MSK: joint pain right knee SKIN: Negative for lesions, rash, itching, metal sensitivity NEURO: Negative for seizure, trauma, numbness/tingling of extremities. ENDOCRINE: Negative for Diabetes Type 1 and Type 2 HEMATOLOGY: Clots Hx of PE in 1997, 2017 after surgery. and On warfarin 5 mg Normal [facility] Vital Signs Date Time Vital Sign Value Performing Clinician Irma waller 02-04-2025 13:38-0400 Body temperature 97.1 [degF] [facility] 02-04-2025 13:38-0400 Diastolic blood pressure 99 mm[Hg] [facility] [place] 02-04-2025 13:38-0400 Heart rate 74 /min [facility] 02-04-2025 13:38-0400 Respiratory rate 16 /min [facility] 02-04-2025 13:38-0400 SaO2% (BldA) [Mass fraction] 95 % [facility] 02-04-2025 13:38-0400 Systolic blood pressure 157 mm[Hg] [facility] 02-04-2025 08:55-0400 Body height 182.88 cm [facility] 02-04-2025 08:55-0400 Body mass index (BMI) [Ratio] 30.1 kg/m2 [facility] 02-04-2025 08:55-0400 Body weight 100.69 kg [facility] Encounters Encounter Date Encounter Type Care Provider Facility Start: 02-04-2025 End: 02-04-2025 Emergency department patient visit [facility] -Emergency Department Work Phone: Start: 11-03-2023 End: 11-03-2023 Emergency department patient visit [facility] Facility:[facility] Start: 06-14-2020 End: 06-14-2020 Patient encounter procedure RAJ Cunningham LUCINDA [facility] Start: 04-14-2019 Patient encounter procedure RAMOS NORTH Facility:[facility] Start: 04-29-2018 End: 04-29-2018 Patient encounter procedure RAMOS NORTH Facility:[facility] Start: 04-01-2018 End: 04-01-2018 Patient encounter procedure RAMOS NORTH Facility:[facility] Start: 03-20-2018 End: 03-22-2018 Evaluation and management of inpatient RAMOS NORTH Facility:[facility] Start: 03-07-2018 Encounter for other preprocedural examination RAMOS NORTH [facility] Start: 03-07-2018 End: 03-08-2018 Patient encounter procedure RAMOS NORTH Facility:[facility] Start: 02-01-2018 End: 02-01-2018 Patient encounter procedure RAMOS NORTH Facility:[facility] Procedures Date Procedure Procedure Detail Performing Clinician Start: 03-07-2018 Antibody screen RAMOS LOUISE Comment on above: Performed By: #### T &S ####[place] [id number] Plan of Treatment Date Care Activity Detail Author Start: 02-04-2025 [facility] Patient Education ED Epistaxis (Adult) [facility] Work Phone: Payers Date Payer Category Payer Self-pay 2023 Unknown [id number] 1945 Unknown [id number] 2.16.8 [id number] 1945 Unknown [id number] 2.16.8 [id number] 1945 Unknown [id number] 2.16.8 [id number] 1945 Unknown [id number] 2.16.8 [id number] 1945 Unknown [id number] 2.16.8 [id number] 1945 Unknown [id number] 2.16.8 [id number] 1945 Unknown [id number] 2.16.8 [id number] 1945 Unknown [id number] 2.16.84 [id number] Medicare [id number] Self-pay [id number] Unknown [id number] Unknown Unknown [id number] 2.16.8 [id number] Social History Date Type Detail Facility Start: 02-04-[address] [facility] Never smoked tobacco (finding) [facility] Start: 1945 Sex Assigned At Male [facility] Evaluation note Note Date & Type Note Facility Evaluation note No assessment information availa ble [facility] Work Phone: Reason for referral (narrative) Note Date & Type Note Facility Reason for referral (narrative) No reason for referral information available [facility] Work Phone: Summary Purpose Family History No Family History Records FoundNo Family History Records FoundNo Family History Records FoundNo Family History Records FoundNo Family History Records Found Advance Directives Advance Directive Response Recorded Date/ Time Do you have a Healthcare Power of Soap Drier Tender? No February 04, 2025 10:29am Chief Complaint and Reason for Visit Chief Complaint Admit Date nosebleed February 04, 2025 8: 54am Additional Source Comments (unrecognized sect ion and content) No Status Records FoundNo Status Records FoundNo Status Records FoundNo Status Records FoundNo Status Records Found INFORMATION SOURCE (unrecogn ized section and content) DATE CREATED AUTHOR 05/20/2018 [facility] DATE CREATED AUTHOR AUTHOR'S ORGANIZ ATION 08/02/2018 [facility] DATE CREATED AUTHOR AUTHOR'S ORGANIZ ATION 06/17/2020 [facility] DATE CREATED AUTHOR AUTHOR'S ORGANIZ ATION 06/26/2020 [facility] DATE CREATED AUTHOR AUTHOR'S ORGANIZ ATION 11/10/2023 [facility] Care Teams (unrecognized sec tion and content) Team Status: Active Member Role/Relationship Status Dates [facility] Primary Care Provider Active Team Status: Inactive Member Role/Relationship Status Dates [facility] Primary Care Provider Active Start: February 04, 2025 End: February 04, 2025 Dr. Braxton Mendez , DO Emergency Provider Active Start: February 04, 2025 End: February 04, 2025 Goals (unrecognized section and content) Goals may be documented in a n alternate section FOR RECORDS PERTAINING TO PATIENTS WHO ARE OR HAVE BEEN ENROLLED IN A CHEMICAL DEPENDENCY/SUBSTANCEABUSE PROGRAM, SOME INFORMATION MAY BE OMITTED. This clinical summary was aggregated from multiple sources. Caution should be exercised in using it in the provision of clinical care. This summary normalizes information from multiple sources, and as a consequence, information in this document may materially change the coding, format and clinical context of patient data. In addition, data may be omitted in some cases. CLINICAL DECISIONS SHOULD BE BASED ON THE PRIMARY CLINICAL RECORDS. [employer] [facility]. provides no warranty or guarantee of the accuracy or completeness of information in this document.
== END 2025-02-04 13:39 | disposition home or self-care (01) ==
PROVIDERS: Emergency Provider Emergency Medicine; Visit Provider Emergency Medicine
DX: R04.0 Epistaxis (principal); I10 Essential (primary) hypertension; E03.9 Hypothyroidism, unspecified; Z86.711 Personal history of pulmonary embolism; Z79.01 Long term (current) use of anticoagulants
CPT/HCPCS: 30901; 99282